=== PATIENT | female | born 1950 | race Caucasian/White ===

== ENCOUNTER 2021-01-30 03:25 | Outpatient (CLI) | payer MEDICARE, SELFPAY ==
[2021-01-30 10:27] LABS: Source Nasal/Nares
[2021-01-30 13:39] LABS: COVID-19 PCR Negative (Negative)
== END 2021-01-30 03:26 | disposition home or self-care (01) ==
LOC: LBO 03:25
PROVIDERS: PCP Family Medicine; Visit Provider Otolaryngology
DX: Z20.822 Contact with and (suspected) exposure to COVID-19 (principal); Z01.818 Encounter for other preprocedural examination
CPT/HCPCS: 87635

== ENCOUNTER 2021-04-07 11:33 | Outpatient (REF) | payer MEDICARE, SELFPAY | END 2021-04-07 11:34 | disposition home or self-care (01) | LOC: LBN 11:33 | PROVIDERS: PCP Family Medicine; Visit Provider Physician Assistant Medical | DX: N39.0 Urinary tract infection, site not specified (principal) | CPT/HCPCS: 87086 ==

== ENCOUNTER 2021-10-17 14:41 | Outpatient (REF) | payer MEDICARE, SELFPAY | END 2021-10-17 14:42 | disposition home or self-care (01) | LOC: LBN 14:41 | PROVIDERS: PCP Family Medicine; Visit Provider Nurse Practitioner Family | DX: N39.0 Urinary tract infection, site not specified (principal) | CPT/HCPCS: 87086 ==

== ENCOUNTER 2022-01-13 16:16 | Outpatient (REF) | payer MEDICARE, SELFPAY ==
[2022-01-18 09:25] LABS: Enterovirus PCR Positive (Negative); Specimen Source FOOT
== END 2022-01-13 16:17 | disposition home or self-care (01) ==
LOC: LBN 16:16
PROVIDERS: PCP Physician Assistant; Visit Provider Physician Assistant Medical
DX: R21 Rash and other nonspecific skin eruption (principal)
CPT/HCPCS: 87498

== ENCOUNTER → 2022-01-25 02:16 | Outpatient (CLI) | payer MEDICARE, SELFPAY ==
--- NOTE | 2022-01-25 08:15 | DI.CT_ITS ---
Exam(s) CT SINUS WO EXAM: CT SINUS WO CLINICAL HISTORY: chronic maxillarY pain,FACIAL PAIN, R51.9 TECHNIQUE: COMPARISON: No exams were available for comparison FINDINGS: Sinus CT was performed without contrast administration. Visualized brain orbits appear intact. Mast oid air cells are clear and temporal bone structures appear intact. The frontal, ethmoid, maxillary, and sphenoid sinuses are clear. No significant abnormality of the nasal cavity. Ostiomeatal comple xes appear intact bilaterally. IMPRESSION: Negative sinus CT. RADIATION DOSE DELIVERED: 104.78mGy.cm Total DLP !Error CTDIvol DATA REPOSITORY: All CT scans at this facility are submitted to the National Radiology Data Registry (NRDR) Dose Index Registry (DIR) with the [employer] (ACR). RADIATION OPTIMIZATION: All CT scans at this facility use at least one of these dose optimization te chniques: automated exposure control; mA and/or kV adjustment per patient size (includes targeted exa ms where dose is matched to clinical indication); or iterative reconstruction.
== END ==
PROVIDERS: PCP Physician Assistant; Visit Provider Otolaryngology
DX: R51.9 Headache, unspecified (principal)
CPT/HCPCS: 70486

== ENCOUNTER 2022-02-21 15:36 | Outpatient (REF) | payer MEDICARE, SELFPAY ==
[2022-02-23 12:14] LABS: COVID-19 RT-PCR UVMMC Result Negative (Negative)
== END 2022-02-21 15:37 | disposition home or self-care (01) ==
LOC: LBN 15:36
PROVIDERS: PCP Physician Assistant; Visit Provider Physician Assistant Medical
DX: Z20.822 Contact with and (suspected) exposure to COVID-19 (principal); J02.9 Acute pharyngitis, unspecified
CPT/HCPCS: U0003; 87070

== ENCOUNTER → 2022-03-06 12:49 | Outpatient (BNVA) | payer MEDICARE, SELFPAY | PROVIDERS: PCP Physician Assistant; Referring Provider Otolaryngology; Visit Provider Psychiatry & Neurology Neurology | DX: R51.9 Headache, unspecified (principal) | CPT/HCPCS: 99203 ==

== ENCOUNTER 2022-06-27 11:35 | Outpatient (REF) | payer OTHER, SELFPAY ==
[2022-06-27 15:40] LABS: RBC 0-2 HPF (0-2)
[2022-06-27 15:41] LABS: Bacteria Few HPF (Negative); C & S Indicated? C&S Done As Ordered; Casts Negative LPF (Negative); Crystals Negative HPF (Negative); Epithelial Cells Few HPF (Negative); Mucus Negative (Negative)
== END 2022-06-27 11:36 | disposition home or self-care (01) ==
LOC: LBN 11:35
PROVIDERS: PCP Physician Assistant; Visit Provider Physician Assistant Medical
DX: R30.0 Dysuria (principal)
CPT/HCPCS: 81015; 87086

== ENCOUNTER 2022-08-28 11:42 | Outpatient (CLI) | payer OTHER, SELFPAY ==
--- NOTE | 2022-08-28 11:30 | RT.EKG_ITS ---
APPROVED REPORT Exam: Resting ECG Reason for Exam: chest discomfort Patient Location: O HR:67 bpm ECG Measurements Heart Rate 67 AXIS CA 178 P 43 QRSd 95 QRS 2 QT 410 T 28 QTc 433 Conclusion Sinus rhythm...normal P axis, V-rate 50- 99 Probable left atrial enlargement...P >50mS, <-0.10mV V1 Otherwise normal ECG
== END 2022-08-28 11:43 | disposition home or self-care (01) ==
LOC: DI.CM 11:42
PROVIDERS: PCP Physician Assistant; Visit Provider Nurse Practitioner Family
DX: R07.89 Other chest pain (principal)
CPT/HCPCS: 93010

== ENCOUNTER 2022-08-28 21:26 | Outpatient (REF) | payer OTHER, SELFPAY ==
[2022-08-28 20:30] LABS: Abs Immature Grans 0.01 10^3/uL (0.0-0.06); Absolute Basophil Count 0.04 10^3/uL (0.0-0.2); Absolute Eosinophil Count 0.09 10^3/uL (0.0-0.7); Absolute Lymphocyte Count 1.61 10^3/uL (1.2-3.4); Absolute Monocyte Count 0.32 10^3/uL (0.1-0.8); Absolute Neutrophil Count 3.05 10^3/uL (1.2-6.7); Basophils % 0.8; Eosinophils % 1.8; HCT 43.4 % (36.0-46.0); HGB 14.5 g/dL (11.2-15.7); Immature Grans % 0.2; Lymphocytes % 31.4; MCHC 33.4 % (32.0-36.0); MCV 84 fL (80-95); MPV 11.8 fL (8.0-11.0); Monocytes % 6.3; Neutrophils % 59.5; Platelet Count 237 10^3/uL (130-400); RBC 5.17 10^6/uL (3.93-5.22); RDW 12.3 % (11.7-14.6); RDW-SD 37.3 fL; WBC 5.12 10^3/uL (4.4-10.8)
[2022-08-28 21:10] LABS: ALT 63 U/L (14-59); AST 37 U/L (15-37); Albumin 3.9 g/dL (3.4-5.0); Alkaline Phosphatase 145 U/L (46-116); Anion Gap 7.6 mmol/L (3-11); BUN 16 mg/dL (7-18); Bilirubin, Total 0.4 mg/dL (0.2-1.0); CO2 31.4 mmol/L (21.0-32.0); CREATININE 0.8 mg/dL (0.55-1.02); Calcium 9.2 mg/dL (8.5-10.1); Chloride 104 mmol/L (98-107); Estimated GFR 79.71 (mL/min/1.73m2); Glucose 97 mg/dL (74-106); Sodium 143 mmol/L (136-145); TSH 2.76 uIU/mL (0.36-3.74); Total Protein 7.8 g/dL (6.4-8.2)
[2022-08-30 09:45] LABS: Lyme Ab w Rflx to Lyme Confirm Negative (Negative)
[2022-09-01 15:57] LABS: Anaplasma phagocytophilum Negative (Negative); B. miyamotoi PCR Negative (Negative); Babesia divergens/MO-1 Negative (Negative); Babesia duncani Negative (Negative); Babesia microti Negative (Negative); Ehrlichia chaffeensis Negative (Negative); Ehrlichia ewingii/canis Negative (Negative); Ehrlichia muris eauclairensis Negative (Negative)
== END 2022-08-28 21:27 | disposition home or self-care (01) ==
LOC: LBN 21:26
PROVIDERS: PCP Physician Assistant; Visit Provider Nurse Practitioner Family
DX: R53.83 Other fatigue (principal); W57.XXXD Bitten or stung by nonvenomous insect and other nonvenomous arthropods, subsequent encounter; T14.8XXD Other injury of unspecified body region, subsequent encounter; R07.89 Other chest pain
CPT/HCPCS: 80053; 87798; 84443; 85025; 86618

== ENCOUNTER 2022-08-30 01:59 | Outpatient (CLI) | payer OTHER, SELFPAY ==
--- NOTE | 2022-08-30 | DI.MAMMO_ITS ---
Exam(s) MAMMO SCREENING EXAM: MAMMO SCREENING CLINICAL HISTORY: SCREENING FOR BREAST CANCER Z12.39 TECHNIQUE: Bilateral full field digital CC and MLO mammographic images were obtained with 3D tomosyn thesis and utilizing computer aided detection (CAD). COMPARISON: Available for comparison. FINDINGS: Masses/Architectural Distortion: None seen. There is a biopsy clip again seen in the right breast. Microcalcifications: No suspicious pleomorphic-type are seen. Skin Thickening/Nipple Retraction: None. IMPRESSION: 1. No significant interval change with no specific features of malignancy noted. 2. Unless there is more urgent need, screening mammography is recommended, as per [employer] guidelines. BI-RADS Category 1 - Negative Breast Density - Category C - Heterogeneously dense Breast density category C or D implies that the patient has dense breast tissue. Dense breast tissue is very common and is not abnormal but dense breast tissue can make it harder to find cancer on a ma mmogram. Also, dense breast tissue may increase their breast cancer risk. This information about the result of the mammogram report was provided to the patient to raise their awareness. Use this report when you speak with the patient about their risks for breast cancer, which includes their family hist ory. At that time, you may recommend for more screening tests (Ultrasound or MRI) as they might be us eful based on their risk. A negative radiographic report should not delay biopsy if a dominant or clinically suspicious mass is present. Up to ten percent of cancers are not identified on mammography. A negative report may reinforce clinical impression. Adenosis and dense breasts may obscure an underlying neoplasm. False positive reports average 6 to 10%. Patient will receive a letter notifying them of these results.
--- NOTE | 2022-08-30 | DI.DEXA_ITS ---
Exam(s) XR DEXA BONE DENSITY W/WO BRENDAN EXAM: XR DEXA BONE DENSITY W/WO BRENDAN CLINICAL HISTORY: OSTEOPOROSIS M81.0 TECHNIQUE: COMPARISON: No exams were available for comparison FINDINGS: Lateral Spine Image: Unremarkable. No compression deformities identified. Left hip: Total T-Score: -2.2 Total Z-Score: -0.7 T- and Z-scores: Findings are consistent with osteopenia. There is osteoporosis in the femoral neck with a T-score of -2.8. Lumbar Spine: Total T-Score: -3.0 Total Z-Score: -0.9 T- and Z-scores: Findings are consistent with osteoporosis. IMPRESSION: Osteoporosis in the lumbar spine and femoral neck.
== END 2022-08-30 02:19 ==
LOC: DI 02:02
PROVIDERS: PCP Physician Assistant; Visit Provider Physician Assistant
DX: Z13.820 Encounter for screening for osteoporosis (principal); Z12.31 Encounter for screening mammogram for malignant neoplasm of breast; M81.0 Age-related osteoporosis without current pathological fracture
CPT/HCPCS: 77063; 77067; 77080

== ENCOUNTER 2022-10-05 15:08 | Outpatient (REF) | payer MEDICARE, SELFPAY ==
[2022-10-05 14:43] LABS: Abs Immature Grans 0.02 10^3/uL (0.0-0.06); Absolute Basophil Count 0.03 10^3/uL (0.0-0.2); Absolute Eosinophil Count 0.06 10^3/uL (0.0-0.7); Absolute Lymphocyte Count 1.44 10^3/uL (1.2-3.4); Absolute Monocyte Count 0.44 10^3/uL (0.1-0.8); Absolute Neutrophil Count 3.33 10^3/uL (1.2-6.7); Basophils % 0.6; Eosinophils % 1.1; HCT 42.2 % (36.0-46.0); HGB 14.2 g/dL (11.2-15.7); Immature Grans % 0.4; Lymphocytes % 27.1; MCH 28.1 pg (27.0-33.0); MCHC 33.6 % (32.0-36.0); MCV 84 fL (80-95); MPV 11.7 fL (8.0-11.0); Monocytes % 8.3; Neutrophils % 62.5; Platelet Count 226 10^3/uL (130-400); RBC 5.05 10^6/uL (3.93-5.22); RDW 12.5 % (11.7-14.6); RDW-SD 37.9 fL; WBC 5.32 10^3/uL (4.4-10.8)
[2022-10-05 15:18] LABS: ALT 48 U/L (14-59); AST 29 U/L (15-37); Albumin 3.9 g/dL (3.4-5.0); Alkaline Phosphatase 132 U/L (46-116); Anion Gap 10.9 mmol/L (3-11); BUN 14 mg/dL (7-18); Bilirubin, Total 0.4 mg/dL (0.2-1.0); CO2 27.1 mmol/L (21.0-32.0); CREATININE 0.8 mg/dL (0.55-1.02); Calcium 8.9 mg/dL (8.5-10.1); Chloride 106 mmol/L (98-107); Estimated GFR 79.22 (mL/min/1.73m2); Glucose 106 mg/dL (74-106); Lipase 49 U/L (16-77); Potassium 4.1 mmol/L (3.5-5.1); Sodium 144 mmol/L (136-145); Total Protein 7.7 g/dL (6.4-8.2)
== END 2022-10-05 15:09 | disposition home or self-care (01) ==
LOC: LBN 15:08
PROVIDERS: PCP Physician Assistant; Visit Provider Physician Assistant Medical
DX: R10.11 Right upper quadrant pain (principal)
CPT/HCPCS: 80053; 83690; 85025

== ENCOUNTER 2022-10-08 03:28 | Outpatient (CLI) | payer MEDICARE, SELFPAY ==
--- NOTE | 2022-10-08 | DI.US_ITS ---
Exam(s) US ABDOMEN LIMITED EXAM: US ABDOMEN LIMITED CLINICAL HISTORY: GB POLYPS,K82.4,RUQ ABD PAIN, R10.11,H/O GALLSTONES TECHNIQUE: Ultrasound abdomen performed using standard protocol. COMPARISON: No exams were available for comparison FINDINGS: LIVER: Normal size and echogenicity. No focal liver lesions are seen.. GALLBLADDER: Multiple gallbladder polyps are noted measuring between 4 and 8 millimeters in diameter. No suspicious lesions. No follow-up recommended. No evidence of cholelithiasis. No evidence of wa ll thickening. No pericholecystic fluid identified. DA SILVA'S SIGN: Negative. BILIARY SYSTEM: No intrahepatic or extrahepatic biliary ductal dilation. Right KIDNEY: No evidence of renal calculi. No evidence of hydronephrosis. No renal mass or cyst iden tified. PANCREAS: Normal where visualized. ABDOMINAL AORTA AND IVC: Visualized portions normal caliber. ASCITES: None seen. IMPRESSION: Several small gallbladder polyps noted. No suspicious masses. No follow-up recommended DATA REPOSITORY:
== END 2022-10-08 03:48 ==
LOC: DI 03:28
PROVIDERS: PCP Physician Assistant; Visit Provider Physician Assistant Medical
DX: K82.4 Cholesterolosis of gallbladder (principal); R10.11 Right upper quadrant pain
CPT/HCPCS: 76705

== ENCOUNTER 2022-10-12 15:38 | Outpatient (REF) | payer MEDICARE, SELFPAY ==
[2022-10-12 16:28] LABS: ALT 42 U/L (14-59); AST 27 U/L (15-37); Albumin 4.1 g/dL (3.4-5.0); Alkaline Phosphatase 139 U/L (46-116); Bilirubin, Direct 0.1 mg/dL (0.0-0.2); Bilirubin, Total 0.3 mg/dL (0.2-1.0); Total Protein 7.4 g/dL (6.4-8.2)
[2022-10-12 18:22] LABS: GGT 129 U/L (5-55)
[2022-10-13 22:13] LABS: Rheumatoid Factor <8.6 IU/mL (<12.0)
[2022-10-15 14:42] LABS: ANA Interpretation Negative (Negative)
== END 2022-10-12 15:39 | disposition home or self-care (01) ==
LOC: NCHCN 15:38
PROVIDERS: PCP Physician Assistant; Visit Provider Physician Assistant
DX: R10.11 Right upper quadrant pain (principal)
CPT/HCPCS: 80076; 82977; 86038; 86431

== ENCOUNTER 2022-11-05 12:08 | Outpatient (REF) | payer MEDICARE, SELFPAY ==
[2022-11-05 16:05] LABS: Bacteria Negative HPF (Negative); Epithelial Cells Negative HPF (Negative); RBC 0-2 HPF (0-2); WBC Negative HPF (0-5)
[2022-11-05 16:06] LABS: C & S Indicated? C&S Done As Ordered; Crystals Negative HPF (Negative); Mucus Negative (Negative)
== END 2022-11-05 12:09 | disposition home or self-care (01) ==
LOC: LBN 12:08
PROVIDERS: PCP Physician Assistant; Visit Provider Nurse Practitioner Family
DX: N30.01 Acute cystitis with hematuria (principal)
CPT/HCPCS: 81015; 87086

== ENCOUNTER 2022-11-12 13:54 | Outpatient (REF) | payer MEDICARE, SELFPAY ==
[2022-11-12 16:24] LABS: Bacteria Negative HPF (Negative); C & S Indicated? C&S Done As Ordered; Casts Negative LPF (Negative); Crystals Negative HPF (Negative); Epithelial Cells Rare HPF (Negative); Mucus Negative (Negative); RBC 0-2 HPF (0-2); WBC Negative HPF (0-5)
== END 2022-11-12 13:55 | disposition home or self-care (01) ==
LOC: LBN 13:54
PROVIDERS: PCP Physician Assistant; Visit Provider Nurse Practitioner Family
DX: N30.01 Acute cystitis with hematuria (principal)
CPT/HCPCS: 81015; 87086

== ENCOUNTER 2022-11-20 12:59 | Outpatient (REF) | payer MEDICARE, SELFPAY ==
[2022-11-20 15:43] LABS: Bilirubin Negative (Negative); Blood Negative (Negative); Clarity Clear (Clear); Glucose Negative (Negative); Ketones Negative (Negative); Leukocyte Esterase Negative (Negative); Nitrite Negative (Negative); Specific Gravity 1.015 (1.005-1.025); Urobilinogen 0.2 mg/dL (Up to 0.2)
== END 2022-11-20 13:00 | disposition home or self-care (01) ==
LOC: LBN 12:59
PROVIDERS: PCP Physician Assistant; Visit Provider Nurse Practitioner Family
DX: R30.0 Dysuria (principal)
CPT/HCPCS: 81003

== ENCOUNTER 2022-11-30 12:07 | Outpatient (REF) | payer MEDICARE, SELFPAY ==
[2022-11-30 15:02] LABS: Bacteria Negative HPF (Negative); C & S Indicated? C&S Done As Ordered; Casts Negative LPF (Negative); Crystals Negative HPF (Negative); Epithelial Cells Rare HPF (Negative); Mucus Negative (Negative); Other Cells Rare Renal (Negative); RBC Negative HPF (0-2); WBC 0-2 HPF (0-5)
[2022-11-30 16:42] LABS: ALT 44 U/L (14-59); AST 29 U/L (15-37); Albumin 3.9 g/dL (3.4-5.0); Alkaline Phosphatase 115 U/L (46-116); Anion Gap 9.1 mmol/L (3-11); BUN 17 mg/dL (7-18); Bilirubin, Total 0.3 mg/dL (0.2-1.0); CO2 28.9 mmol/L (21.0-32.0); CREATININE 0.8 mg/dL (0.55-1.02); Chloride 104 mmol/L (98-107); Estimated GFR 79.22 (mL/min/1.73m2); Glucose 101 mg/dL (74-106); Potassium 3.8 mmol/L (3.5-5.1); Sodium 142 mmol/L (136-145); Total Protein 7.4 g/dL (6.4-8.2)
== END 2022-11-30 12:08 | disposition home or self-care (01) ==
LOC: LBN 12:07
PROVIDERS: PCP Physician Assistant; Visit Provider Physician Assistant Medical
DX: R30.0 Dysuria (principal); R39.89 Other symptoms and signs involving the genitourinary system; R10.9 Unspecified abdominal pain; N89.8 Other specified noninflammatory disorders of vagina
CPT/HCPCS: 80053; 81015; 87086; 87480; 87510; 87660

== ENCOUNTER → 2023-03-05 12:56 | Outpatient (BNVA) | payer MEDICARE, SELFPAY | PROVIDERS: PCP Physician Assistant; Referring Provider Physician Assistant; Visit Provider Nurse Practitioner Gerontology | DX: R30.0 Dysuria (principal); R35.0 Frequency of micturition | CPT/HCPCS: 51798; 81003; 99213 ==

== ENCOUNTER → 2023-05-09 08:51 | Outpatient (BNVA) | payer MEDICARE, SELFPAY | PROVIDERS: PCP Physician Assistant; Referring Provider Physician Assistant; Visit Provider Psychiatry & Neurology Neurology | DX: R51.9 Headache, unspecified (principal) | CPT/HCPCS: 99214 ==

== ENCOUNTER → 2023-05-21 02:32 | Outpatient (CLI) | payer MEDICARE, SELFPAY ==
[2023-05-21 08:29] LABS: CREATININE 0.8 mg/dL (0.55-1.02); Estimated GFR 79.22 (mL/min/1.73m2)
[2023-05-21] MEDS: Gadoterate meglumine 20 ML VIAL 12 ML IVP (08:45)
[2023-05-21] MEDS: Normal Saline Flush 10 ML SYR IVP (08:46)
--- NOTE | 2023-05-21 09:25 | DI.MRI_ITS ---
Exam(s) MR BRAIN WO/W EXAM: MR BRAIN WO/W CLINICAL HISTORY: bilateral facial pain,r51.9. TECHNIQUE: Multiplanar multisequence MRI of the brain was performed. CONTRAST MATERIAL: IV Contrast: 12 ML of Dotarem contrast administered. COMPARISON: CT CT SINUS WO from 01/25/2022 FINDINGS: VENTRICLES AND EXTRA AXIAL SPACES: Normal in size and morphology for the patient's age. HEMORRHAGE: None. CEREBRAL PARENCHYMA: No focus of restricted diffusion to suggest acute infarct. No space-occupying le hunter identified. A few scattered small scattered high signal foci are noted consistent with minimal microvascular changes. MIDLINE SHIFT: None. BRAINSTEM/CEREBELLUM: Normal. CALVARIUM: Normal. ENHANCEMENT: No suspicious enhancement identified. VISUALIZED PARANASAL SINUSES/MASTOIDS: Minimal mucosal thickening noted in the right maxillary sinus. Internal auditory canals appear normal. No abnormal enhancement along the visualized cranial nerves. Orbits: Unremarkable. Pituitary: Normal. Vasculature: Normal flow voids. IMPRESSION: Unremarkable MRI of the brain. DATA REPOSITORY:
== END ==
PROVIDERS: PCP Physician Assistant; Visit Provider Psychiatry & Neurology Neurology
DX: R51.9 Headache, unspecified (principal)
CPT/HCPCS: 70553; 82565

== ENCOUNTER → 2023-06-27 12:16 | Outpatient (BNVA) | payer MEDICARE, SELFPAY | PROVIDERS: PCP Physician Assistant; Referring Provider Physician Assistant; Visit Provider Psychiatry & Neurology Neurology | DX: R43.2 Parageusia (principal); R51.9 Headache, unspecified | CPT/HCPCS: 99214 ==

== ENCOUNTER → 2023-09-10 07:26 | Outpatient (BNVA) | payer MEDICARE, SELFPAY | PROVIDERS: PCP Physician Assistant; Referring Provider Physician Assistant; Visit Provider Surgery | DX: Z12.11 Encounter for screening for malignant neoplasm of colon (principal) ==

== ENCOUNTER → 2023-09-11 03:26 | Outpatient (CLI) | payer MEDICARE, SELFPAY ==
--- NOTE | 2023-09-11 | DI.MAMMO_ITS ---
Exam(s) MAMMO SCREENING EXAM: MAMMO SCREENING CLINICAL HISTORY: SCREENING Z12.31 TECHNIQUE: Mammograms were interpreted according to the usual protocol including computer analysis w [employer] CAD system, tomosynthesis and C-view imaging. COMPARISON: 2015 through 2022 FINDINGS: The breasts are composed of heterogeneously dense fibroglandular densities, Breast Density category C . No suspicious masses or suspicious microcalcifications are seen. No skin thickening or abnormal axillary lymph nodes are seen. Biopsy marker again noted in the poste rior right breast. There has been no significant change from prior exams. IMPRESSION: BI-RADS Category 1, Negative mammogram. Yearly screening mammography is recommended. Breast Density Category C, heterogeneously Dense. The mammogram demonstrates the patient's breast tissue is dense. Dense breast tissue is very common a nd is not abnormal but dense breast tissue can make it harder to find cancer on a mammogram. Also, de nse breast tissue may increase breast cancer risk. This information about the result of the mammogram report was provided to the patient to raise their awareness. Use this report when you speak with the patient about their risks for breast cancer, which includes their family history. At that time, you may recommend additional screening tests (Ultrasound or MRI) as they might be useful based on their r isk. A negative radiographic report should not delay biopsy if a dominant or clinically suspicious mass is present. Up to ten percent of cancers are not identified on mammography. A negative report may reinforce clinical impression. Adenosis and dense breasts may obscure an underlying neoplasm. False positive reports average 6 to 10%.
== END ==
PROVIDERS: PCP Physician Assistant; Visit Provider Physician Assistant
DX: Z12.31 Encounter for screening mammogram for malignant neoplasm of breast (principal)
CPT/HCPCS: 77063; 77067

== ENCOUNTER 2023-09-20 07:05 | Day surgery (SDC) | payer MEDICARE, SELFPAY ==
--- NOTE | 2023-09-19 20:55 | PDOC.DSDIS_ITS ---
Date of service: 09/20/23 Time of Service: 09:42 Discharge Plan Disposition Patient Disposition: Home Condition: Good Discharge Details Reason For Visit: screening colonoscopy Attending Provider: Severiano Atwood Primary Care Provider: Amaury Ely Home Meds and New Rx's Prescriptions: Continued cholecalciferol (vitamin D3) 50 mcg (2,000 unit) capsule 50 mcg PO DAILY calcium carbonate [Calcium 600] 600 mg calcium (1,500 mg) tablet 600 mg PO DAILY omega-3 fatty acids 1,000 mg capsule 1,000 mg PO DAILY ascorbic acid (vitamin C) 1,000 mg capsule 1 g PO Q6H vitamin B complex Capsule 1 cap PO DAILY Discontinued polyethylene glycol 3350 17 gram/dose powder 238 g PO ONCE Qty: 238 0RF Rx Instructions: take per colonoscopy instructions bisacodyl [Dulcolax (bisacodyl)] 5 mg tablet,delayed release (DR/EC) 5 mg PO ONCE Qty: 4 0RF Rx Instructions: take per colonoscopy instructions Discharge Instructions Instructions: Colon polyps, Diverticulosis, High-fiber diet Additional Instructions: Martha, we are able to complete your colonoscopy today without any difficulty. I did find and remove 2 polyps today. Both will be sent off for testing, and once we know the nature of these polyps, that we will determine the timing of your next colonoscopy. Incidentally, you also have some diverticulosis. Diverticula are little weak spots in the muscular part of the colon wall. They typically occur as we age. They can get infected or inflamed. When that happens, we caught diverticulitis, and it is usually experienced as fairly sharp pain, usually on the left side or lower part of the abdomen. It usually accompanied by fevers and not feeling well. Most of the time this is treated with antibiotics. The best way to take care of it stay well-hydrated, avoid constipation, and a plenty of fiber in your diet. Have attached some basic information here about: Rectal polyps, as well as diverticulosis. As mentioned above, we will have the results of the polyp analysis, the office will be in [facility]. If you need anything in the meantime, please do not hesitate to call or ask at any time. 1. If tolerated, consume a soft, low fiber diet for 1-2 days. [address] Do not drive, drink alcohol, operate machinery, make critical decisions, or do activities that require coordination or balance for 24 hours. 3. Because air was put into your colon during the procedure, expelling air from your rectum (passing gas or farting) is normal. 4. You may not have a bowel movement for 1-3 days because of the colonoscopy prep. This is normal. 5. Go directly to the emergency room if you notice any of the following: Develop chills (warm to touch), or if you have a thermometer and your temperature is above 101 Difficulty breathing or difficultly swallowing Persistent vomiting Severe abdominal pain, other than gas cramps Severe chest pain Black, tarry stools Any bleeding ? exceeding one tablespoon 6. Call your physician if the site where your intravenous was started becomes red, swollen, painful, and warm to touch. 7. Your physician has reviewed your pre-procedure medications. Please continue to take those medications as previously ordered. You will be given specific information/education regarding any changes to your medications before leaving. Stand Alone Forms: Anesthesia Discharge Inst., Wil Reddy (DSU) Activity:: Activity as Tolerated Diet:: As Tolerated Discharge Orders Discharge Orders: Discharge Order (Routine); Ordered 09/19/23 Ordered By: Severiano Atwood DS: Diagnosis Discharge Diagnosis (1) Encounter for screening colonoscopy: Status: Acute Asessment and Plan: Follow-up on polypectomy results
--- NOTE | 2023-09-19 20:57 | W.COLOREPORT ---
Date of service: 09/20/23 Time of Service: 09:44 Colonoscopy Report Date of procedure: 09/20/23 Pre-op diagnosis general: screening colonoscopy Post-op diagnosis procedure note: other (Diverticulosis, colon polyps) Procedure: colonoscopy with polypectomy Surgeon: Severiano Atwood Anesthesia Type: General:No Airway Estimated blood loss (mL): 5 Pathology: other (0.5 cm flat polyp at 35 cm, 0.25 cm polyp also at 35 cm) Complications: None Disposition: same day Indications: Martha is a 72 year old woman who needs her next screening colonoscopy Prep: Miralax/Dulcolax Procedure Start Time: 09:14 Procedure End Time: 09:32 Retraction Time: 9 Findings: Mostly sigmoid diverticulosis, 0.5 cm flat polyp at 35 cm, 0.25 cm polyp also at 35 cm Procedure Description: After the induction of monitored anesthetic care, and with the patient in left lateral decubitus position, I began by performing an external anorectal exam.? Perineum and skin were normal, as was the anal verge.? There are some mild external hemorrhoids.? Next, I performed a digital rectal exam.? I did not appreciate any abnormal findings.? Next, I advanced a colonoscope into the rectal vault.? I performed retroflexion.? This appeared normal.? Using insufflation, I then advanced the colonoscope beyond the rectal folds and into the sigmoid colon before advancing towards the cecum.? There was some sigmoid diverticulosis. There were some occasional diverticula in other segments. the scope was noted to be in the cecum by identification of the ileocecal valve and appendiceal orifice.? I then began withdrawing the colonoscope using repeated irrigation as necessary for full evaluation of the colonic mucosa. Around 35 cm from the anus was a 0.5 cm flat polyp. This was removed with cold forceps without any issue. Just centimeter to away was another polyp. This was also mostly flat. It was about 0.25 cm in its largest dimension. This was also removed with cold forceps. Polypectomy sites looked healthy, with no worrisome bleeding. Once the scope was withdrawn to the level of the rectum, great care was taken to examine portions of the rectal folds.? Finally, the scope was withdrawn and the patient was brought to the same-day surgery recovery unit as the anesthetic wore off. ?The findings and instructions were shared with the patient prior to discharge. [place] Bowel Prep [place] Bowel Prep Right Colon: 3 Left Colon: 3 Transverse Colon: 3 Total Score: 9
[2023-09-20 07:56] VITALS: BP 146/97; PULSE 66; RESP 16; TEMP 36.7; O2SAT 100
[2023-09-20] MEDS: Lactated Ringers 1,000 ML 80 ML IV (07:59)
--- NOTE | 2023-09-20 08:00 | W.ANESPRE ---
General Info Date of Service Date Performed: 09/20/23 Height: 5 ft 2 in Weight: 64 kg Body Mass Index (BMI): 25.8 Surgical Procedure: Operation Date: 09/20/23 09:20 Proposed Procedure Side Surgeon lori Atwood MD Meds Allergies and Home Medications Allergies Allergy/AdvReac Type Severity Reaction Status Date / Time alendronate sodium Allergy Unknown Other (See Verified 09/20/23 07:55 [From Fosamax] Comment) ciprofloxacin [From Cipro] Allergy Unknown Other (See Verified 09/20/23 07:55 Comment) levothyroxine sodium Allergy Unknown Other (See Verified 09/20/23 07:55 [From Synthroid] Comment) Penicillins Allergy Unknown Other (See Verified 09/20/23 07:55 Comment) Sulfa (Sulfonamide Allergy Unknown Other (See Verified 09/20/23 07:55 Antibiotics) Comment) azithromycin AdvReac Unknown Other (See Verified 09/20/23 07:55 Comment) Home Medication Medication Instructions Recorded ascorbic acid (vitamin C) 1,000 mg 1 g PO Q6H 12/07/21 capsule calcium carbonate (Calcium 600) 600 mg PO DAILY 12/07/21 cholecalciferol (vitamin D3) 50 50 mcg PO DAILY 12/07/21 mcg (2,000 unit) capsule omega-3 fatty acids 1,000 mg 1,000 mg PO DAILY 12/07/21 capsule vitamin B complex 1 cap PO DAILY 12/07/21 Current Visit Medications: Current Medications Generic Name Dose Route Start Last Admin Trade Name Freq PRN Reason Stop Dose Admin Hyoscyamine Sulfate 0.125 mg 09/19/23 20:58 Hyoscyamine 0.125 Mg Sl/Oral/Chew SL 10/19/23 20:57 DIRECTED PRN Ringer's Solution 1,000 mls @ 80 mls/hr 09/20/23 06:00 09/20/23 07:59 IV 09/20/23 23:59 80 mls/hr INFUSION ENRIKE Administration IV Miscellaneous Supplies 1 each 09/20/23 06:00 Iv Access IV 09/20/23 23:59 DIRECTED ENRIKE Ondansetron HCl 4 mg 09/19/23 20:58 Ondansetron 4 Mg/2 Ml Vial IVP 10/19/23 20:57 Q4H PRN PRN Nausea / Vomiting Sodium Chloride 0 ml 09/20/23 06:00 Normal Saline Flush 10 Ml Syr IV 09/20/23 23:59 PRN PRN Sodium Chloride 0 ml 09/20/23 06:00 Normal Saline 10 Ml Vial IJ 09/20/23 23:59 DIRECTED PRN Sterile Water 0 ml 09/20/23 06:00 Water,Injection,Sterile 10 Ml Vial IJ 09/20/23 23:59 DIRECTED PRN PFSH Active Problems Active Problems: Problem Status Onset Code Encounter for screening colonoscopy Z12.11 Dysgeusia R43.2 Facial lesion L98.9 Seborrheic keratosis L82.1 Acute cystitis with hematuria N30.01 Dysuria R30.0 Deviated nasal septum J34.2 Facial pain R51.9 Medical History Medical History Right upper quadrant abdominal pain of unknown etiology Senile osteoporosis Senile hyperkeratosis Urethral polyp Migraine headache Allergic rhinitis due to pollen Vitamin D deficiency Age related osteoporosis Tinnitus Gallbladder polyp Hoarseness Chronic sinusitis Surgical History Surgical History Hx of cervical polypectomy H/O partial thyroidectomy Hx of cataract surgery Tobacco Smoking/Tobacco Use Status: Former Tobacco Use Alcohol Alcohol Intake: current Alcohol intake frequency: holidays/special occasions only Substance Use Substance use: Never Substance use type: does not use Vital Signs and Lab Results Vital Signs Most Recent Vital Signs in EMR: Most Recent Vital Signs Temp Pulse Resp BP Pulse Ox 36.7 C 66 16 146/97 H 100 09/20/23 07:56 09/20/23 07:56 09/20/23 07:56 09/20/23 07:56 09/20/23 07:56 Lab Results Blood Type / Crossmatch: No Data to Display Complete Blood Count: No Data to Display Complete Metabolic Panel: No Data to Display Liver Function Panel: No Data to Display Coagulation Panel: No Data to Display Cardiac Panel: No Data to Display Arterial Blood Gas: No Data to Display Venous Blood Gas: No Data to Display Pancreas Panel: No Data to Display Thyroid Panel: No Data to Display Infectious Disease: No Data to Display Blood Cultures: No Data to Display Toxicology Panel: No Data to Display Imaging and Studies Imaging and Studies Study information below may be from another EMR and interpreted by another provider. Please see original notes in EMR for more complete details. EKG Summary: Conclusion Sinus rhythm...normal P axis, V-rate 50- 99 Probable left atrial enlargement...P >50mS, <-0.10mV V1 Otherwise normal ECG 08/28/22 Anesthesia Assessment and Plan Anesthesia History Personal History: No History of Anesthesia Complications Family History: No Family History of Anesthesia Complications Exercise Tolerance Exercise Tolerance: Metabolic Equivalents>4 Pertinent Negatives Pertinent Negatives: No Symptoms of GERD, No Major Cardiovascular Symptoms or Complaints, No Major Pulmonary Symptoms or Complaints and No History of CVA/TIA Cardiac & Pulmonary Exam Cardiac Exam: Normal S1/S2 Heart Sounds Pulmonary Exam: Clear Bilateral Breath Sounds Implantable Cardiac Device Does patient have a Pacemaker or an ICD?: No Airway Exam Known Difficult Airway: No Mallampati Class: 3 Mouth Opening: Narrow (< 3cm) Thyromental Distance: Greater than 3 cm Neck Range of Motion: Full ROM Neck Circumference: Normal Teeth Condition: Normal Dentition ASA Classification ASA Score: ASA 2 Emergency Case?: No NPO Status NPO Status: NPO Clears >2 hours, Solids >8 hours Anesthesia Plan Resuscitation Status: Full Code Anesthesia Technique: General Anesthesia Airway Planned: Natural Airway Monitors Used: Standard Monitors Preoperative Comments:: Pt here for 10 yr colonoscopy, reports no family history of colon cancer, no changes in bowels.
[2023-09-20 08:01] VITALS: BP 134/80
[2023-09-20 08:05] VITALS: BMI 25.8
--- NOTE | 2023-09-20 09:28 | BOWEL_PTH ---
PATIENT: Martha Solares LOC: [facility] U#:[id number] AGE/SX: 72/F ROOM: RE09/20/[address]: Severiano Atwood MD : 1950 BED: DIS: 09/20/2023 SPEC #: [id number] RECD: 09/20/23 13:02 STATUS: CABRERA REQ #: [id number] DAGO: 09/20/23 09:[address]: Severiano Atwood DEPT: Surgical Specimen RECD BY: Dania Turner ENTERED: 09/20/23 13:03 SP TYPE: Bowel OTHR DR: Amaury Ely Tissues: 1 - BIOPSY BOWEL Procedures: GROSS AND MICRO LEVEL 4 Comments: [id number]
[2023-09-20 09:34] VITALS: BP 104/60; PULSE 69; RESP 16; TEMP 36.3; O2SAT 97
--- NOTE | 2023-09-20 09:52 | W.ANESPOSTOP ---
Postoperative Evaluation Date, Time and Location Date Performed: 09/20/23 Time Performed: 09:52 Patient Location: Day Surgery Unit Vital Signs Most Recent Imported Vital Signs: Most Recent Vital Signs Temp Pulse Resp BP Pulse Ox 36.3 C L 69 16 104/60 97 09/20/23 09:34 09/20/23 09:34 09/20/23 09:34 09/20/23 09:34 09/20/23 09:34 Pain Score Most Recent Pain Score: Most Recent Pain Score Pain Level 0 09/20/23 09:34 Assessment Mental Status: Awake (Alert & Oriented to Patient Baseline) Airway and Respiratory Function: Patent airway with normal (patient baseline) respiratory exam Cardiovascular Function: Hemodynamically Stable Hydration Status: Adequately Hydrated Nausea & Vomiting: No Nausea or Vomiting Pain: Pt. Denies Any Pain Peripheral Nerve Block: Patient did not receive a nerve block
[2023-09-20 09:57] VITALS: BP 151/83; PULSE 62; RESP 16; TEMP 36.1; O2SAT 199
== END 2023-09-20 10:30 | disposition home or self-care (01) ==
LOC: SUR 07:05
PROVIDERS: PCP Physician Assistant; Visit Provider Surgery
PROC: 0DJD8ZZ Inspection of Lower Intestinal Tract, Via Natural or Artificial Opening Endoscopic (ICD-10-PCS; CPT 45378; principal; 2023-09-20 09:15)
DX: Z12.11 Encounter for screening for malignant neoplasm of colon (principal); K57.30 Diverticulosis of large intestine without perforation or abscess without bleeding; D12.5 Benign neoplasm of sigmoid colon; K64.8 Other hemorrhoids
CPT/HCPCS: 45380; 88305; J2001; J2704

== ENCOUNTER → 2024-01-02 13:02 | Outpatient (BNVA) | payer MEDICARE, SELFPAY | PROVIDERS: PCP Physician Assistant; Visit Provider Psychiatry & Neurology Neurology | DX: R51.9 Headache, unspecified (principal) | CPT/HCPCS: 99214 ==

== ENCOUNTER 2024-01-31 18:01 | Outpatient (REF) | payer MEDICARE, SELFPAY ==
[2024-01-31 14:39] LABS: Source Nasal/Nares
[2024-01-31 15:30] LABS: COVID-19 PCR Negative (Negative)
[2024-01-31 16:06] LABS: Bacteria Negative HPF (Negative); C & S Indicated? C&S Done As Ordered; Crystals Negative HPF (Negative); Epithelial Cells Rare HPF (Negative); Mucus Heavy (Negative); Other Cells Rare Transitional (Negative)
--- OUTSIDE RECORDS SUMMARY | 2024-01-31 18:02 | XMS_ITS | Clinical Summary ---
[facility] [place] [address] Care Team Providers Care Marketing Traffic Manager Name Role Phone Amaury Ely Primary Care Provider Social History Tobacco Use Types Packs/Day Years Used Date Smoking Tobacco: Never Assessed Sex and Gender Information Value Date Recorded Sex Assigned at Not on file Gender Identity Not on file Sexual Orientation Not on file Plan of Treatment Health Maintenance Due Date Last Done Comments CT Colonography 1950 Colonoscopy 1950 Colorectal Cancer Screening 1950 FIT DNA 1950 FIT 1950 Sigmoidoscopy (10 year) with FIT yearly 1950 Sigmoidoscopy 1950 Hepatitis C Screening 1970 Tetanus/Diphtheria/Pertussis Vaccines (1 - Tdap) 10/03 Breast Cancer Share Decision Needed 1992 Breast Cancer screening 1992 Zoster vaccine (1 of 2) 2002 Advance Directive 10/04/2007 Bone Density Scan 2017 Pneumoccocal Vaccine: 65+ (1 of 1 - PCV) 2017 Covid-19 Vaccine ( - 2023-25 season) 2023 Influenza (Flu) vaccine (1 o f 1 - Influenza standard series) 11/24/2023 Care Teams Marketing Traffic Manager Relationship Specialty Start Date End Date Amaury Ely PA [address] [place] [address] PCP - General Internal Medicine 10/26/22
--- OUTSIDE RECORDS SUMMARY | 2024-01-31 18:02 | XMS_ITS | Encounter Summary ---
Author Organization [facility] [place] [address] Care Team Providers Care Senior Medical Technologist Name Role Phone Amaury Ely Primary Care Provider Encounter Details Date Type Department Care Team (Latest Contact Info) Description 11/13/2022 Travel Social History Tobacco Use Types Packs/Day Years Used Date Smoking Tobacco: Never Assessed Sex and Gender Information Value Date Recorded Sex Assigned at Not on file Gender Identity Not on file Sexual Orientation Not on file documented as of this encounter Plan of Treatment Not on file documented as of this encounter Visit Diagnoses Not on filedocumented in this encounter Care Teams Senior Medical Technologist Relationship Specialty Start Date End Date Amaury Ely PA [address] [place] [address] PCP - General Internal Medicine 10/26/22 documented as of this encounter
--- OUTSIDE RECORDS SUMMARY | 2024-01-31 18:03 | XMS_ITS | Encounter Summary ---
Author Organization [facility] Address [address] [place] [address] Care Team Providers Care Crop Nutrition Scientist Name Role Phone Ava Leonard MD Primary Care Provider [phone] Reason for Visit * Reason Onset Date Comments Coordination Of Care 04/10/2023 Encounter Details Date Type Department Care Team (Late st Contact Info) Description 04/10/2023 Telephone [facility] [address], [place] [id number] Urmila Gleason MD [address] [facility], [address] [place] [address] Coordination Of Care Social History Tobacco Use Types Packs/Day Years Used Date Smoking Tobacco: Former Cigarettes 1.5 2 0 03/25/1977 - 03/25/1979 Smokeless Tobacco: Never Alcohol Use Standard Drinks/Week Comments Not Asked 0 (1 standard drink = 0.6 oz pur e alcohol) Interpersonal Safety Answer Date Record ed Physically Hurt Never 10/25/2019 Verbally Threaten Not on file 10/25/2019 Sex and Gender Information Value Date Recorded Sex Assigned at Not on file Gender Identity Female 03/12/2019 11:22 EST Sexual Orientation Not on file documented as of this encounter Miscellaneous Notes * Telephone Encounter - Maria Dolores Munroe - 04/10/2023 1317 EST Patient called and asked that her recent notes be faxed to her new Neurologists office in [facility] - Dr. Mabel Mccarthy at [facility] Ph. [phone] F. [phone] documented in this encounter Plan of Treatment Not on file documented as of this encounter Visit Diagnoses Not on filedocumented in this encounter Care Teams Crop Nutrition Scientist Relationship Specialty Start Date End Date Ava Leonard MD [address] [place] [address] PCP - General 04/19/14 documented as of this encounter
--- OUTSIDE RECORDS SUMMARY | 2024-01-31 18:03 | XMS_ITS | Encounter Summary ---
Author Organization [facility] Address [address] [place] [address] Care Team Providers Care Processing Associate Name Role Phone Ava Leonard MD Primary Care Provider [phone] Encounter Details Date Type Department Care Team (Late st Contact Info) Description 03/08/2020 Lab Requisition [facility] Pathology & Laboratory Medicine - [facility] [address] [place] [address] Ava Leonard MD [address] [place] [address] [address] [place] [address] Vitamin D deficiency, unspecified Social History Tobacco Use Types Packs/Day Years [...] on file documented as of this encounter Procedures Procedure Name Priority Date/Time Associated Diagnosis Comments VITAMIN D (25,OH) Routine 03/08/2020 14: 47 EST Vitamin D deficiency, unspecified documented in this encounter Results * VITAMIN D (25,OH) (03/08/2020 14:47 EST) 25OH Vitamin D Tot 62.1 30.0 - 100.0 ng/mL 03/09/2020 10:21 EST [facility] Comment: Vitamin D 25,OH Interpretive Ranges: Deficiency: ??<10.0 ng/mL Insufficiency: ??10.0 - 30.0 ng/mL Sufficiency: ??30.0 - 100.0 ng/mL Toxicity: ??>100.0 ng/mL Blood VENOUS BLOOD / Unknown 03/08/2020 14:47 EST 03/08/2020 19:43 EST Ava Leonard MD CHEMISTRY & BLOOD GAS ORDERABLES [facility] [address] [place] [address] documented in this encounter Visit Diagnoses Diagnosis Vitamin D deficiency, unspecified documented in this encounter Care Teams Processing Associate Relationship Specialty Start Date End Date Ava Leonard MD [address] [place] [address] PCP - General 04/19/14 documented as of this encounter
--- OUTSIDE RECORDS SUMMARY | 2024-01-31 18:03 | XMS_ITS | Encounter Summary ---
Author Organization [facility] Address [address] [place] [address] Care Team Providers Care E Tailer Name Role Phone Ava Leonard MD Primary Care Provider [phone] Encounter Details Date Type Department Care Team (Late st Contact Info) Description 09/18/2021 Plan of Care Documentation [facility] Speech & Language [address] [place] [address] Social History Tobacco Use Types Packs/Day Years [...] on file documented as of this encounter Progress Notes * Sheryl Bose - 09/18/2021 1542 EDT Images from the original note were not included. Outpatient Rehab Plan of Care Assessment Speech Language Pathology Encounter and DISCHARGE Note *TELEPRACTICE VISIT* Name: Martha Solares Address: [address] [place] [id number] (home) Date of : 1950 Primary Physician: Ava Leonard Referring Physician: Kamron Prakash* REHAB THERAPIST Diagnosis: Dysphonia Medical Diagnosis: Muscle Tension Dysphonia Date of Onset: 10/14/20 Date of Referral: 10/14/20 Date of Service: 09/18/2021 Total Treatment Time: 1300, 30 minutes Name of Provider: Sheryl Bose M.S., CHIO-REHAB THERAPIST SUBJECTIVE: I really feel like I know what to do. OBJECTIVE: Martha was seen today after almost 3 mos to continue a course of REHAB THERAPIST intervention to address goals related to dysphonia. Patient has been seen 5 times by REHAB THERAPIST services since initial evaluation. Please refer to encounter notes for details. TELEHEALTH REHABILITATION THERAPY VIDEO VISIT Today's visit was provided through telehealth video conferencing. The location of the patient : Home The patient's physical address was verified prior to start of today's visit in case of emergency. The location of the provider: Office The following staff and their role did participate in today's encounter visit: Sheryl Bose M.S., CCC-REHAB THERAPIST The concept of ???telehealth has been described to the patient.? Patient has been informed of the anticipated benefits and possible risks.? Patient understands the information provided regarding telehealth, has had the opportunity to ask questions about this information, and all questions have been answered to patient???s satisfaction. Patient consents for the use of telehealth in his/her medical care and authorizes the transmission of any relevant medical information to providers and their staff involved in patient???s medical or mental health care. Progress on goals is as follows: Short-term Goals: Formal - Re-eval: Acoustic Measures: Acoustic measurements were obtained using the [employer] Multi Dimensional Voice Program, with patient [address] [facility]. All normative data is based on the patient's age and gender. Results follow: Results Norm Hoarseness: Hoarseness is a perceptual correlate to perturbation. Increased perturbation measures may be indicative of irregular or asymmetric adduction (closing) of the vocal folds. Jitter/Relative average perturbation (RAP): 0.21% Greater than 0.8% is considered abnormal Shimmer (Jomar) 2.4% Less than or equal to 3.81% is considered normal Voice Breaks: Voice breaks are a perceptual correlate to zjhtp-xn-stkepkwu ratio. Veejo-bw-fyulzrgy ratio (NtR) 0.12 Less than or equal to 0.19 is considered normal Breathiness: Breathiness is a perceptual correlate to voice turbulence index (VTI). Voice turbulence index (VTI) 0.05 Less than or equal to 0.06 is considered normal Multi-Dimensional Voice Program (MDVP): Image indicates norms for RAP, Jomar, NtH, & VTI in the green curyung. Patient???s measures are indicated in the red mazin overlay. See image below: Norms Sources: Barrington & Eufemia; Clinical Measurement of Speech & Voice (2000). Lincolnwang Silvana & Lan. (1997) Journal of Voice, 11(2) 178-186. Goal #1: Patient will master upper body and laryngeal relaxation techniques and will independently maintain relaxed postures during connected speech and singing tasks with 90% accuracy without cues. 05/31: Provided instruction on laryngeal relaxation exercises and provided recommendations for daily completion. Martha was able to return demonstration with 100% accuracy with min cues. She benefited from cues to increase awareness of when her upper body tension increased during spontaneous conversation. She demonstrated emerging increase in her awareness of this. 06/07: Patient reported that she independently completed upper body and laryngeal relaxation techniques at home between sessions. She reported that she has noticed crackling sounds with neck rolls and that doing lip trills has become easier. Today, continued instruction on completion of laryngeal relaxation exercises and patient required moderate cues to reduce tension in her face and upper bodyfor successful completion of lip trills. She also frequently demonstrated upper body tension duringconnected speech and singing tasks, and required verbal, visual, and tactile cueing to relax her shoulders. Overall today, patient was able to maintain relaxed postures during connected speech and singing tasks with 60% accuracy. 06/14: Patient reported that she has been having something between an ache and a pain in her lowerback and abdomen, and that it limits her mobility. She reported that the pain does not affect her breathing. After confirming that patient was able to participate in the upper body and laryngeal exercises, the clinician provided ongoing instruction in upper body exercises. Patient initially required maximum verbal and visual cues to reduce tension in her face and upper body for successful completion of lip trills. However, after continued instruction in diaphragmatic breathing, patient was ableto return demonstration with 100% accuracy and subsequently complete lip trills while maintaining re laxed postures with 80% accuracy. Patient was also able to maintain relaxed postures during connected speech tasks with 90% accuracy today. 06/23: Martha reports she continues to complete recommended laryngeal relaxation exercises daily. She reports increased range and decreased discomfort and clicking with neck stretches. Martha reported she has been practicing lip trills at home, and that they are ???coming more naturally,?? as she has been focusing on maintaining her breath and relaxing her face. Martha maintained relaxed postures during connected speech tasks with 90% accuracy today without cues. 06/26: Martha demonstrates laryngeal relaxation exercises with 100% accuracy. Martha maintained relaxed postures during connected speech tasks with 100% accuracy today without cues. 09/18: Martha maintained relaxed postures during connected speech and singing tasks with 100% accuracytoday without cues. Goal #2: Patient will utilize forward resonance for increased vocal clarity during structured connected speech and singing tasks with 90% accuracy. 05/31: Began training on forward focus of resonance with instruction on semi- occluded vocal tract exercise - straw blowing with and without voice. Martha was able to demonstrate improvement in consistency of breath flow for maintenance of bubbles both with and without voice. With voice, she was able todo this with ~65% accuracy. 06/07: Patient reported that she has been independently completing the semi- occluded vocal tract exercise at home between sessions. She demonstrated this exercise with 100% accuracy during today's session both with and without voice. She reported that she has also been independently completing resonance exercises at home between sessions, and this has increased her awareness of how she has been using her voice spontaneously. She has become aware when muscle tension results in a laryngeal focusedvocal quality. During unstructured, spontaneous conversation, patient demonstrated good forward resonance resulting in an improved vocal quality. However, with more structured tasks, she required cues to maintain relaxed upper body and to move her voice forward so as to consistently sense the vibration in the mask of her face. She achieved 60% accuracy. Patient reported that she was tensing her upper body during the structured tasks due to a concerted effort to avoid use of vocal solis. Patient al so demonstrated shallow breathing during these tasks and was therefore provided instruction in diaphragmatic breathing. Patient returned demonstration of diaphragmatic breathing with 70% accuracy. 06/14: Patient demonstrated increased awareness of the connection between muscle tension and a laryngeal focused vocal quality after she was provided with ongoing instruction in diaphragmatic breathing. With min-moderate verbal, gestural, and visual cueing, patient was able to identify moments in uns tructured, spontaneous conversation when she exhibited vocal solis, and was able to self-correct for more use of forward resonance. She self-identified with ~75% accuracy. Overall, patient was able to use forward resonance for increased vocal clarity with 90% accuracy. The clinician recommended that patient place reminders around her workspace at home to use forward resonance and adequate breath. Patient was receptive to this idea, and plans to use this strategy at home for carryover practice. 06/23: Martha demonstrates ongoing increase in her awareness of the need to take frequent replenishing breaths during connected speech production. With minimal verbal cueing, Martha was able to identify moments in unstructured spontaneous conversation when she exhibited vocal solis or when she let her voice drop into a whisper to prevent vocal solis.?? She also independently recognized that she demonstrates vocal solis when she runs out of air while speaking.?? The clinician instructed her to??speak at a slower rate and intermittently pause to maintain her breath for speech.?? Martha demonstrated an understanding and??plans to use these strategies when saying prayers at Shabbat dinner and when recording a song with her granddaughter this week. 06/26: Provided instruction today on use of pacing, slow rate, replenishing diaphragmatic breaths forteaching, leading and singing. Martha demonstrates improved ability to increase frequency of replenishing breaths to support maintenance of clear forward resonance. Very few instances of vocal solis demon strated today and Martha is able to self-correct these with 100% accuracy. 09/18: In spontaneous connected speech as well as an episode of singing, Martha demonstrates excellentuse of forward focus of resonance for clear vocal quality. She reports ongoing high awareness of proprioception for vibration in the mask of her face and is able to implement this during singing and speaking confidently. Very few instances of vocal solis demonstrated today and Martha is able to identify and self-correct these with 100% accuracy. Goal #3: Patient will demonstrate improved vocal hygiene by use of strategies to avoid voice overuse in the presence of background noise. 05/31: Provided suggestions of use of a meditation aguilera to get the attention of her grandchildren rather than her voice/yelling. Martha liked this suggestion and will pursue. 06/07: Patient reported that she plans to use a old dinner aguilera to get the attention of her grandchildren instead of yelling. Patient demonstrated several instances of throat clearing during the session today. Provided instruction on suppression techniques of swallowing and taking a sip of water. Ptdemonstrated emerging awareness of throat clearing. 06/14: Patient reported that she has not had to use the old dinner aguilera she was loaned by a friend with her grandchildren, as she has been making an effort to keep things lower monte. Patient also reported that she feels like her voice has gotten worse in the past week due to allergies, and that she feels like she hasjunk in [her] throat. She reported that she had tried using a half dose of Claritin with little benefit. The clinician recommended patient try a different decongestant, and patient was open to that suggestion. Patient also demonstrated a decrease in throat clearing today, and often took sips of water to replace the need to clear her throat. 06/23: Martha reported that she tried both a half dose and full dose of Sasha for her allergies this past week, and that she discontinued it, as it made her feel ???wound up.? She reported that shestill feels like her ???throat is coated in junk,?? and that she has been having sinus issues due to the recent shifts in barometric pressure.?? She also reported that she has been using an herbal te a mixture for her sinus issues and continues to drink sips of water instead of clearing her throat.Martha demonstrated no instances of throat clearing during today's session. 06/26: Martha demonstrated no instances of throat clearing during today's session. 09/18: Martha continues to report frustrating sensation of mucus buildup in her pharynx. She has triedall yykv-kha-nrmapbk remedies as well as maintaining excellent hydration to no avail. She stopped short of a prescription level decongestant as she was not comfortable with the side effects. Despite this, she reports excellent success maintaining no throat clearing and demonstrates no episodes of throat clearing during session today. Martha reports that her grandchildren continue to compliment her on her use of a quieter voice when disciplining them. PATIENT/FAMILY EDUCATION: Topic: Patient education and training was completed today regarding vocal hygiene (e.g., avoidance of throat clearing). Education has been ongoing regarding the importance of upper body and laryngeal relaxation during voice use. In addition, education was provided regarding utilization of forward focus ofresonance and diaphragmatic breathing. Provided Martha with some suggestions for working on pitch andpitch clarity for singing. Learner: Patient Method of Education: Verbal and Demonstration Barriers to Learning/Education: None Patient: Was able to verbalize understanding of information and was able to return demonstration. Family: No family present. ASSESSMENT/CLINICAL IMPRESSIONS: Ms. Solares is an 70 y.o.female with moderate speaking demands who has been participating in a course of outpatient REHAB THERAPIST intervention to address dysphonia. 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 She is seen today to continue a course of intervention to address goals related to dysphonia. She has been seen for a total of 5 REHAB THERAPIST treatment sessions. Today, Martha continues to report high satisfaction with the improvement in her voice. She reports she is meeting all of her voice demands and maintaining excellent voice hygiene habits. She demonstrates excellent awareness of episodes of vocal solis and is able to self-correct with 100% accuracy. She demonstrated speaking and singing with excellent use of forward focus of resonance today. She has questions today about improving her ability to match and maintain pitch and suggestions were made for consideration of a singing or family coach for use of tuning apps on her smart phone. As evaluated last session,, formal re-evaluation of acoustic measures demonstrate good improvement in vocal quality. This is consistent with auditory perceptual analysis of decreased frequency of vocal solis and improved ability to self correct. Martha demonstrated increased use of replenishing breathswith good results in vocal quality. Martha is able to demonstrate good vocal mechanics and improved vocal quality for speaking, singing and teaching. ?? Martha has demonstrated good benefit from REHAB THERAPIST intervention. Education has been ongoing on voice anatomy and physiology, vocal hygiene guidelines, and upper body and laryngeal relaxation exercises. Patient does??demonstrate comprehension and she has improved her hygiene with elimination of throat clearing. ?? GOALS: Long-term Goals: Voice Level 7: Individual's ability to successfully and independently participate in vocational, avocational, and social activities requiring high- or low-vocal demands is not limited by voice. Self-monitoring is effectively used, but only occasionally needed. MET 1. Martha will utilize proper vocal mechanics in all speaking situations via self-monitoring.MET 2. Martha will participate in vocational and avocational pursuits without vocal limitations.MET ?? Short-term Goals: Goal #1: Patient will master upper body and laryngeal relaxation techniques and will independently maintain relaxed postures during connected speech and singing tasks with 90% accuracy without cues.MET Goal #2: Patient will utilize forward resonance for increased vocal clarity during structured connected speech and singing tasks with 90% accuracy.MET Goal #3: Patient will demonstrate improved vocal hygiene by use of strategies to avoid voice overuse in the presence of background noise. MET PLAN/RECOMMENDATIONS: At this time skilled REHAB THERAPIST intervention will be discontinued. Martha was encouraged to contact me at this center if new concerns around her voice arise. Sheryl Bose M.S., [facility]-REHAB THERAPIST 09/18/2021 9:03 Plan ATTENDING PHYSICIAN: Medicare certification needed. Your signature indicates you approve the therapy goals and plan of care outlined on this document dated 09/18/2021. Thank you! Attending Physician Signature Date YAHAIRA HARMON 09/18/2021 15:41 documented in this encounter Plan of Treatment Not on file documented as of this encounter Visit Diagnoses Not on filedocumented in this encounter Care Teams E Tailer Relationship Specialty Start Date End Date Ava Leonard MD [address] [place] [id number] PCP - General 04/19/14 documented as of this encounter
--- OUTSIDE RECORDS SUMMARY | 2024-01-31 18:03 | XMS_ITS | Encounter Summary ---
Author Organization [facility] Address [address] [place] [address] Care Team Providers Care Body Straightener Name Role Phone Ava Leonard MD Primary Care Provider [phone] Encounter Details Date Type Department Care Team (Late st Contact Info) Description 01/16/2021 Orders Only [facility] [address] [place] [address] Ilan Mcelroy, RN [address] [place] [address] Encounter for preprocedure screening laboratory testing for COVID-19 (Primary Dx) Social History Tobacco Use Types Packs/Day Years [...] documented as of this encounter Visit Diagnoses Diagnosis Encounter for preprocedure screening laboratory testing for COVID-19- Primary documented in this encounter Care Teams Body Straightener Relationship Specialty Start Date End Date Ava Leonard MD [address] [place] [address] PCP - General 04/19/14 documented as of this encounter
--- OUTSIDE RECORDS SUMMARY | 2024-01-31 18:03 | XMS_ITS | Encounter Summary ---
Author Organization [facility] Address [address] [place] [address] Care Team Providers Care Sales Enablement Manager Name Role Phone Ava Leonard MD Primary Care Provider [phone] Reason for Visit * Reason Onset Date Comments Appointment Related 01/02/2021 Encounter Details Date Type Department Care Team (Late st Contact Info) Description 01/02/2021 Telephone [facility] [address] [place] [address] Kamron Prakash MD [address] [facility], [address] [place] [address] Appointment Related Social History Tobacco Use Types Packs/Day Years [...] encounter Miscellaneous Notes * Telephone Encounter - Gricelda Oliveros LPN - 01/02/2021 1147 EDT Called patient to explain - You have an upcoming patient visit with dr Dwain goff charlie on 01/17/21 at 1 pm Due to recent policy changes related to the Covid 19 pandemic we need you to get tested as you will likely have an in-office procedure during your appointment (scope). The order will beplaced and you will be contacted by the testing call center to schedule the test at a testing facili ty nearest you. You should be called approximately 7 days before your appointment and the test should be scheduled 3 days before the appointment. You will need to quarantine after the test until yourappointment by preferably staying home and yourself from others. If you must go to work/school separate yourself from others, and wear a mask when around others. Have family shop for you so you can travel straight from home to work/school. If you need a note for work/school we can provide one. If you have questions you can reply to this message or call the office at [phone]. Message left on vm documented in this encounter Plan of Treatment Not on file documented as of this encounter Visit Diagnoses Diagnosis Encounter for preprocedure screening laboratory testing for COVID-19- Primary documented in this encounter Care Teams Sales Enablement Manager Relationship Specialty Start Date End Date Ava Leonard MD [address] [facility] [address] [place] [address] PCP - General 04/19/14 documented as of this encounter
--- OUTSIDE RECORDS SUMMARY | 2024-01-31 18:03 | XMS_ITS | Encounter Summary ---
Author Organization [facility] Address [address] [place] [address] Care Team Providers Care Marketing Information Coordinator Name Role Phone Ava Leonard MD Primary Care Provider [phone] [phone] Encounter Details Date Type Department Care Team (Latest Contact Info) Description 07/06/2016 7:15 EDT - 07/06/2016 23:59 EDT Hospital Encounter [facility] [place] [address] [place] [address] Ava Leonard MD [address] [place] [address] [address] [place] [address] Discharge Disposition: Auto Discharge Social History Tobacco Use Types Packs/Day Years Used Date Smoking Tobacco: Former Cigarettes 1.5 2 0 03/25/1977 - 03/25/1979 Smokeless Tobacco: Never Alcohol Use Standard Drinks/Week Comments Not Asked 0 (1 standard drink = 0.6 oz pur e alcohol) Sex and Gender Information Value Date Recorded Sex Assigned at Not on file Gender Identity Female 03/12/2019 11:22 EST Sexual Orientation Not on file documented as of this encounter Discharge Diagnoses Diagnosis Z12.31 Encounter for screening mammogram for malignant neoplasm of breast-Z12.31[ICD-10-CM] documented in this encounter Discharge Disposition Disposition Code Departure Means Destination Auto Discharge Home documented in this encounter Plan of Treatment Not on file documented as of this encounter Visit Diagnoses Not on filedocumented in this encounter Care Teams Marketing Information Coordinator Relationship Specialty Start Date End Date Ava Leonard MD [address] [place] [address] PCP - General 04/19/14 documented as of this encounter
--- OUTSIDE RECORDS SUMMARY | 2024-01-31 18:03 | XMS_ITS | Encounter Summary ---
Author Organization [facility] Address [address] [place] [address] Care Team Providers Care Public Speaking Instructor Name Role Phone Ava Leonard MD Primary Care Provider [phone] [phone] Encounter Details Date Type Department Care Team (Late st Contact Info) Description 10/19/2019 Lab Requisition [facility] Pathology & Laboratory Medicine - [facility] [address] [place] [address] Ava Leonard MD [address] [place] [address] [address] [place] [address] Vitamin D deficiency, unspecified Social [...] Date/Time Associated Diagnosis Comments VITAMIN D (25,OH) Today 10/19/2019 10: 34 EDT Vitamin D deficiency, unspecified [ICD-10-CM] documented in this encounter Results * (ABNORMAL) VITAMIN D (25,OH) (10/19/2019 10:34 EDT) 25OH Vitamin D Tot 142.0(H) 30.0 - 100.0 ng/mL 10/20/2019 10:34 EDT [facility] Comment: Vitamin D 25,OH Interpretive Ranges: Deficiency: ??<10.0 ng/mL Insufficiency: ??10.0 - 30.0 ng/mL Sufficiency: ??30.0 - 100.0 ng/mL Toxicity: ??>100.0 ng/mL Blood VENOUS BLOOD / Unknown 10/19/2019 10:34 EDT 10/19/2019 15:27 EDT Ava Leonard MD CHEMISTRY & BLOOD GAS ORDERABLES [facility] [address] [place] [address] documented in this encounter Visit Diagnoses Diagnosis Vitamin D deficiency, unspecified documented in this encounter Care Teams Public Speaking Instructor Relationship Specialty Start Date End Date Ava Leonard MD [address] [place] [address] [address] [place] [address] PCP - General 04/19/14 documented as of this encounter
--- OUTSIDE RECORDS SUMMARY | 2024-01-31 18:03 | XMS_ITS | Encounter Summary ---
Author Organization [facility] Address [address] [place] [address] Care Team Providers Care Patent Prosecution Attorney Name Role Phone Ava Leonard MD Primary Care Provider [phone] [phone] Reason for Visit * Reason Comments Hoarse Other dysphonia * Referral (Routine) - Receiving Office to Obtain Authorization Specialty Diagnoses / Procedures [email or web address] Referred To Contact Otolaryngology Diagnoses Dysphonia Ava Leonard MD [address] [place] [address] [address] [place] [address] [facility] [address] [place] [address] Referral ID Status Reason Start Date Expiration Date Visits Requested Visits Authorized [id number] Receiving Office to Obtain Authorization 1 1 Encounter Details Date Type Department Care Team (Late st Contact Info) Description 02/02/2021 13:00 EST Office Visit [facility] ENT- [facility] [place] [address] [place] [address] Kamron Prakash MD [address] [facility], Level 4 [place] [id number] Muscle tension dysphonia (Primary Dx) Social History Tobacco Use Types [...] as of this encounter Progress Notes * Kamron Prakash MD - 02/02/2021 1300 EST Subjective: Patient ID: Martha Solares is an 70 y.o. female. Chief Complaint Patient presents with ??? Hoarse ??? Other dysphonia Ava Leonard has requested that I see Martha Solares in consultation regarding hoarseness. HPI Martha Solares is seen today for hoarseness affecting her speaking and singing voice. This is been an issue since last winter but in retrospect may have started several years earlier. This was gradual in onset without a clear antecedent event, injury or illness. She describes her voice is gravelly with a rough and raspy quality. Her singing voice has been affected in terms of her range where she used to be a for Soprano now she is a second Soprano or even in radiant. She sings at home with her grandchildren and during times of pentecostal. She does not have any difficulty breathing or swallowing. She will occasionally clear her throat but denies a lump in throat sensation. No sore throat, otalgia or hemoptysis. There has been purposeful weight loss. She denies a history of GERD, asthma or allergies. She does experience some increased sinus pressure and teeth pain with barometric pressure changes but no rhinorrhea, sneezing fits, itchy eyes. She maintains good hydration. She rarely drinks caffeine or alcohol. She smoked 1 pack a day for several years but quit over 40 years ago. Past Medical History: Diagnosis Date ??? Migraines Past Surgical History: Procedure Laterality Date ??? BREAST BIOPSY ??? BREAST FNA Family History Problem Relation Age of Onset ??? Breast Cancer Maternal Aunt Social Social History Socioeconomic History ??? Marital status: Spouse name: Not on file ??? Number of children: Not on file ??? Years of education: Not on file ??? Highest education level: Not on file Occupational History ??? Not on file Tobacco Use ??? Smoking status: Former Smoker Packs/day: 1.50 Years: 2.00 Pack years: 3.00 Types: Cigarettes Quit date: 03/25/1979 Years since quittin.8 ??? Smokeless tobacco: Never Used Substance and Sexual Activity ??? Alcohol use: Not on file ??? Drug use: Not on file ??? Sexual activity: Not on file Other Topics Concern ??? Not on file Social History Narrative ??? Not on file Social Determinants of Health Financial Resource Strain: ??? Difficulty of Paying Living Expenses: Not on file Food Insecurity: ??? Worried About Running Out of Food in the Last Year: Not on file ??? Ran Out of Food in the Last Year: Not on file Transportation Needs: ??? Lack of Transportation (Medical): Not on file ??? Lack of Transportation (Non-Medical): Not on file Physical Activity: ??? Days of Exercise per Week: Not on file ??? Minutes of Exercise per Session: Not on file Stress: ??? Feeling of Stress : Not on file Social Connections: ??? Frequency of Communication with Friends and Family: Not on file ??? Frequency of Social Gatherings with Friends and Family: Not on file ??? Attends Restorationist Services: Not on file ??? Active Member of Clubs or Organizations: Not on file ??? Attends Club or Organization Meetings: Not on file ??? Marital Status: Not on file No outpatient medications have been marked as taking for the 02/02/21 encounter (Office Visit) withKamron Prakash MD. Allergies Allergen Reactions ??? Penicillins ??? Wheat Review of Systems Constitutional: Positive for weight loss. Negative for chills, fever and malaise/fatigue. HENT: Negative for congestion, ear pain, hearing loss and sore throat. Eyes: Negative for blurred vision, double vision and photophobia. Respiratory: Negative for cough, hemoptysis, shortness of breath and wheezing. Cardiovascular: Negative for chest pain, palpitations, claudication and leg swelling. Gastrointestinal: Negative for heartburn. Musculoskeletal: Negative for joint pain and myalgias. Skin: Negative for rash. Neurological: Negative for sensory change, focal weakness and headaches. Endo/Heme/Allergies: Negative for environmental allergies. Does not bruise/bleed easily. - See HPI Objective: There were no vitals taken for this visit. Physical Exam Department of Otolaryngology PHYSICAL EXAMINATION CONSTITUTIONAL: VITAL SIGNS: Not reviewed APPEARANCE: The patient appears alert, cooperative, and comfortable. ABILITY TO COMMUNICATE / VOICE: Mild vocal roughness, glottal solis. No wheeze or stridor. HEAD AND FACE: INSPECTION: Normal without apparent scars, lesions, or masses. PALPATION: There are no masses or sinus tenderness. SALIVARY GLANDS: Submandibular and Parotid glands are normal bilaterally FACIAL STRENGTH: Intact and symmetrical bilaterally EXTERNAL EAR & NOSE: No external ear or nose deformity noted EYES: EYES: exam not performed EARS, NOSE, MOUTH AND THROAT: OTOSCOPY: Right external auditory canal: patent and non-inflamed Left external auditory canal: patent and non-inflamed Right tympanic membrane: intact and normally mobile without retraction, perforation or effusion Left tympanic membrane: intact and normally mobile without retraction, perforation or effusion WHISPER/TUNING FORK: Not assessed NOSE: normal turbinates and mucosa: septum in midline LIPS, TEETH & GUMS: normal for age ORAL CAVITY & OROPHARYNX: normal HYPOPHARYNX & PHARYNGEAL MURPHY: See flexible exam report LARYNX: See flexible exam report NASOPHARYNX: See flexible exam report NECK: GENERAL: Supple, no asymmetry or crepitus, trachea midline THYROID: Normal LYMPHATIC: CERVICAL LYMPH NODES: No pathologic cervical lymphadenopathy noted RESPIRATORY: LUNGS: Not examined CARDIOVASCULAR: CARDIOVASCULAR: Not examined NEUROLOGIC: NEUROLOGIC: Normal mood and affect Endoscopy Procedure Note Pre-procedure Diagnosis: Hoarseness / Dysphonia Post-procedure Diagnosis: same Indications: Hoarseness, dysphagia or aspiration - not able to be clearly evaluated by indirect laryngoscopy Anesthesia: Cophenylcaine Endoscopy Type: Laryngoscopy using a flexible laryngoscope Procedure Details: With the patient sitting upright in the examining chair informed consent was obtained. The left nostril was topically anesthetized with cotton pledgets. After waiting an appropriate period of time for anesthesia/ vasoconstriction to become effective (if this was applicable), the scope was passed into the left nostril and the nasopharynx, oropharynx, hypopharynx and larynx were examined. Condition: Patient tolerated procedure well and left the office in a stable condition. Complications: None Findings: Nasopharynx: Normal exam of choanae, eustachian tubes, and adenoids for age Oropharynx: Normal exam of tongue base, tonsils, and posterior pharynx Hypopharynx: Normal piriform sinuses noted, no pooling of secretions Supraglottis: Moderate supraglottic hyperfunction Posterior Commissure: Normal Right True Vocal Fold: Normal Left True Vocal Fold: Normal Vocal Fold Mobility: Normal bilaterally Subglottis is clear Assessment: Encounter Diagnoses Name Primary? Muscle tension dysphonia Yes Plan: Several years of dysphonia affecting both her speaking and singing voice. This was gradual in onsetwithout vocal fold pathology or lesions on flexible laryngoscopy in the office today. 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 Vocal hygiene was reviewed including vocal mechanics and breath support. Handout was provided. I have also placed an CONTROL TECHNICIAN referral for voice evaluation and possible outpatient voice therapy. I will see her on as- needed basis in the future. documented in this encounter Plan of Treatment Not on file documented as of this encounter Visit Diagnoses Diagnosis Muscle tension dysphonia- Primary Dysphonia documented in this encounter Care Teams Patent Prosecution Attorney Relationship Specialty Start Date End Date Ava Leonard MD [address] [place] [address] PCP - General 04/19/14 documented as of this encounter
--- OUTSIDE RECORDS SUMMARY | 2024-01-31 18:03 | XMS_ITS | Encounter Summary ---
Author Organization [facility] Address [address] [place] [address] Care Team Providers Care Configuration Analyst Name Role Phone Ava Leonard MD Primary Care Provider [phone] [phone] Reason for Visit * Reason Comments New Patient Visit Encounter Details Date Type Department Care Team (Latest Contact Info) Description 06/13/2015 13:00 EDT Office Visit [facility] Osteoporosis - [facility] [address] [place] [address] Rafael Adkins MD Rad, Edu Felder MD Postmenopausal (Primary Dx); Osteopenia; History of bisphosphonate therapy Social History Tobacco Use Types Packs/Day Years [...] on file documented as of this encounter Last Filed Vital Signs Vital Sign Reading Time Taken Comments Blood Pressure - - Pulse - - Temperature - - Respiratory Rate - - Oxygen Saturation - - Inhaled Oxygen Concentration - - Weight 64.4 kg (142 lb) 06/13/2015 1300 EDT Height 159.7 cm (5' 2.87) 06/13/2015 1300 EDT Body Mass Index 25.26 06/13/2015 1300 EDT documented in this encounter Discharge Diagnoses Diagnosis M85.80 Other specified disorders of bone density and structure, unspecified site-M85.80[ICD-10-CM] documented in this encounter Progress Notes * Aruna Palomares - 06/13/2015 1321 EDT Procedure Date: 06/13/2015 Referring Physician: Ava Leonard MD Previous Scan Date: None at [facility] (Previous DXA in [place] in [place]) ABN Necessary: No Ht 159.7 cm (62.87) Wt 64.411 kg (142 lb) BMI 25.26 kg/m2 Done AP SPINE yes FEMUR yes TOTAL BODY FOREARM LVA/VFA HEEL US PATIENT HISTORY: There is no problem list on file for this patient. No past medical history on file. Additional Comments: Previous/Prior Comparison? None at [facility] (see [facility]) Pharmacologic? No Osteoporosis Center Patient Information Ethnicity/Race: Nutrition and Habits: Do you consume dairy? Yes Number of servings per day? 2-3 Do you take calcium supplements? Yes Amount? 800 mg daily Do you drink 3 or more alcoholic beverages daily? No Have you now or have you had in the past an eating disorder? No Do you or have you smoked in the last 6 months? No Family History: Did your mother or father have a hip fracture? No Do you have a parent or sibling who suffered a broken hip, shoulder, wrist or ribs after age 45? No Patient History-Medications: Have you taken any of the following medications or treatments. (Now or in the past)?: Steroid (prednisone, cortisone, Medrol) 5mg. or more for at least 3 months? No Thyroid medication for thyroid cancer suppression? No Anticonvulsants (phenytoin, Dilantin, phenobarbital) No GnRH Agonist (for endometriosis or prostate cancer, Example - Lupron) No Depo Povera (Current use) No Aromatase inhibitor: Letrozol (Femera), Anastrozole (arimidex), Exemestane (Aromasin) No TZD's for diabetes (Actos, Avandia) No Medical History: Have you had any of the following?: Hyperthyroidism (over active thyroid) No Hyperparathyroidism (over active parathyroid, high blood calcium) No Kidney failure No Rheumatoid arthritis No Seizure disorder (epilepsy) No Diabetes mellitus No Bariatric surgery/Gastric bypass No Back Surgery No Back X-ray No Fractures after age 40 No Area: Treatments: Alendronate (Fosamax) Past use for less then 6 mos due to side effects, Date stopped: 2005 Calcitonin (Miacalcin) Never, Date stopped: Denosumab (Prolia) Never, Date stopped: Ibandronate (Boniva) Never, Date stopped: Pamidronate (Aredia) Never, Date stopped: Raloxifene (Evista) Never, Date stopped: Risendronate (Actonel) Never, Date stopped: Teriparatide (Forteo) Never, Date stopped: Zoledronic Acid (Reclast, Zomata) Never, Date stopped: Other: Never, Date stopped: For Women Only: What was your age at menopause? 51 Are you taking estrogen now or within the past year? Never (Only Bio-Identical Topical Cream in 2010), Date stopped: Have you been treated for breast cancer? Never Comments: Aruna Palomares 06/13/2015 13:24 documented in this encounter Plan of Treatment Not on file documented as of this encounter Procedures Procedure Name Priority Date/Time Associated Diagnosis Comments ORDERS - SCANNED 06/22/2015 8:33 EDT DXA DUAL XRAY [facility]ORPT[facility]ET[facility] Routine 06/16/2015 9:58 EDT Osteopenia documented in this encounter Results * ORDERS - SCANNED (06/22/2015 8:33 EDT) 06/22/2015 8:33 EDT Scan 2 It Investment/Portfolio Manager ADMISSION ORDERABLE S * DXA-DUAL XRAY ABSORPTIOMETRY FOR BONE DENSITY (06/16/2015 9:58 EDT) DEXA Bone Density [facility] DEXA Bone Density, External [facility] Anatomical Region Laterality Modality Other 06/16/2015 9:58 EDT Ava Leonard MD IMG DEXA ORDERABL ES documented in this encounter Visit Diagnoses Diagnosis Postmenopausal- Primary Asymptomatic postmenopausal status (age-related) (natural) Osteopenia Disorder of bone and cartilage, unspecified History of bisphosphonate therapy Personal history of other drug therapy documented in this encounter Care Teams Configuration Analyst Relationship Specialty Start Date End Date Ava Leonard MD [address] [facility] [address] [place] [address] PCP - General 04/19/14 documented as of this encounter
--- OUTSIDE RECORDS SUMMARY | 2024-01-31 18:03 | XMS_ITS | Encounter Summary ---
Author Organization [facility] Address [address] [place] [address] Care Team Providers Care Stone Mason Name Role Phone Ava Leonard MD Primary Care Provider [phone] [phone] Encounter Details Date Type Department Care Team (Latest Contact Info) Description 07/11/2020 Travel Social History Tobacco Use Types Packs/Day [...] 11:22 EST Sexual Orientation Not on file COVID-19 Exposure Response Date Recorded In the last month, have you been in contact with someone who was confirmed or suspected to have Coronavirus / COVID-19? No / Unsure 07/11/2020 14:34 EDT documented as of this encounter Plan of Treatment Not on file documented as of this encounter Visit Diagnoses Not on filedocumented in this encounter Care Teams Stone Mason Relationship Specialty Start Date End Date Ava Leonard MD [address] [place], [place] [id number] PCP - General 1/26/15 documented as of this encounter
--- OUTSIDE RECORDS SUMMARY | 2024-01-31 18:03 | XMS_ITS | Encounter Summary ---
Author Organization [facility] Address [address] [place] [address] Care Team Providers Care Informatica Name Role Phone Ava Leonard MD Primary Care Provider +1 [phone] Reason for Referral * Radiology Services (Routine) - Closed Specialty Diagnoses / Procedures Referred By Marc covington Referred To Contact Diagnoses Cholesterolosis of gallbladder Procedures US ABDOMEN LIMITED Ava Leonard MD [address] [place] [phone] Referral ID Status Reason Start Date Expiration Date Visits Re quested Visits Authorized [id number] Closed 05/04/2020 1 1 Reason for Visit * Radiology Services (Routine) - Closed Specialty Diagnoses / Procedures Referred By Marc covington Referred To Contact Diagnoses Cholesterolosis of gallbladder Procedures US ABDOMEN LIMITED Ava Leonard MD [address] [place] [phone] Referral ID Status Reason Start Date Expiration Date Visits Re quested Visits Authorized [id number] Closed 05/04/2020 1 1 Encounter Details Date Type Department Care Team (Latest Contact Info) Description 05/18/2020 8:17 EST - 05/18/2020 23:59 EST Hospital [facility] Radiology US - [address] [address] Cholesterolosis of gallbladder Discharge Disposition: Home or Self Care Social History Tobacco Use Types Packs/Day [...] have Coronavirus / COVID-19? No / Unsure 05/18/2020 8:16 EST documented as of this encounter Discharge Disposition Disposition Code Departure Means Destination Home or Self Care documented in this encounter Plan of Treatment Not on file documented as of this encounter Procedures Procedure Name Priority Date/Time Associated Diagnosis Comments US ABDOMEN LIMITED Routine 05/18/2020 8: 43 EST Cholesterolosis of gallbladder documented in this encounter Results * US ABDOMEN LIMITED (05/18/2020 8:43 EST) Anatomical Region Laterality Modality Abdomen, Body Ultrasound 05/18/2020 10:3 9 EST Impressions 05/18/2020 10:39 EST Gallbladder polyps measuring up to 7 mm. Per KRISTIE guidelines, annual follow-up is recommended for 5 years. Narrative 05/18/2020 10:39 EST US ABDOMEN LIMITED ??05/18/2020 8:30 AM SIGNS AND SYMPTOMS/COMMENTS: re-eval gallbladder polyps seen on imaging in 02/2019 COMPARISON: Right upper quadrant ultrasound from 03/06/2019. TECHNIQUE: Grayscale and Doppler ultrasound evaluation of the right upper quadrant of the abdomen was performed. FINDINGS: PANCREAS: Imaged portions of the pancreas are normal. LIVER: The liver measures 16.0 cm in length, which is normal. Liver is normal in echogenicity and echotexture. No focal hepatic lesion is identified. RIGHT KIDNEY: The right kidney measures 12.0 cm in length. No hydronephrosis or shadowing calculus. GALLBLADDER: The gallbladder wall measures 2.9 mm in thickness, which is normal. Numerous gallbladder polyps are again identified measuring up to 7 mm. Shadowing gallstones are also noted layering dependently within the gallbladder. BILE DUCTS: The common duct measures 4 mm in diameter at the lucrecia hepatis, which is normal. No intrahepatic biliary ductal dilatation. PROXIMAL ABDOMINAL AORTA / IVC: The proximal abdominal aorta and IVC are normal. Procedure Note Aidan Case MD - 05/18/2020 US ABDOMEN LIMITED 05/18/2020 8:30 AM SIGNS AND SYMPTOMS/COMMENTS: re-eval gallbladder polyps seen on imaging in02/2019 COMPARISON: Right upper quadrant ultrasound from 03/06/2019. TECHNIQUE: Grayscale and Doppler ultrasound evaluation of the right upperquadrant of the abdomen was performed. FINDINGS: PANCREAS: Imaged portions of the pancreas are normal. LIVER: The liver measures 16.0 cm in length, which is normal. Liver isnormal in echogenicity and echotexture. No focal hepatic lesion isidentified. RIGHT KIDNEY: The right kidney measures 12.0 cm in length. Nohydronephrosis or shadowing calculus. GALLBLADDER: The gallbladder wall measures 2.9 mm in thickness, which isnormal. Numerous gallbladder polyps are again identified measuring up to 7mm. Shadowing gallstones are also noted layering dependently within thegallbladder. BILE DUCTS: The common duct measures 4 mm in diameter at the portahepatis, which is normal. No intrahepatic biliary ductal dilatation. PROXIMAL ABDOMINAL AORTA / IVC: The proximal abdominal aorta and IVC arenormal. IMPRESSION Gallbladder polyps measuring up to 7 mm. Per KRISTIE guidelines, annualfollow-up is recommended for 5 years. Ava Leonard MD [facility] US ORDERABLES documented in this encounter Visit Diagnoses Diagnosis Cholesterolosis of gallbladder documented in this encounter Care Teams Informatica Relationship Specialty Start Date End Date Ava Leonard MD [address] [place] [address] PCP - General 04/19/14 documented as of this encounter
--- OUTSIDE RECORDS SUMMARY | 2024-01-31 18:03 | XMS_ITS | Encounter Summary ---
Author Organization [facility] Address [address] [place] [address] Care Team Providers Care Communications Specialist Name Role Phone Ava Leonard MD Primary Care Provider [phone] [phone] Reason for Referral * Radiology Services (Routine) - Closed Specialty Diagnoses / Procedures Referred By Contac t Referred To Contact Radiology Diagnoses Pulsatile tinnitus, right ear Procedures MR ANGIO HEAD WO CONTRAST Ava Leonard MD [address] [place] [phone] Referral ID Status Reason Start Date Expiration Date Visits Re quested Visits Authorized [id number] Closed 02/03/2019 1 1 Reason for Visit * Radiology Services (Routine) - Closed Specialty Diagnoses / Procedures Referred By Contac t Referred To Contact Radiology Diagnoses Pulsatile tinnitus, right ear Procedures MR ANGIO HEAD WO CONTRAST Ava Leonard MD [address] [place] [phone] Referral ID Status Reason Start Date Expiration Date Visits Re quested Visits Authorized [id number] Closed 02/03/2019 1 1 Encounter Details Date Type Department Care Team (Latest Contact Info) Description 03/16/2019 6:17 EST - 03/16/2019 8:23 EST Hospital Encounter [facility] [address] [place] [address] Pulsatile tinnitus, right ear Discharge Disposition: Home or Self Care Social [...] file documented as of this encounter Discharge Disposition Disposition Code Departure Means Destination Home or Self Care documented in this encounter Plan of Treatment Not on file documented as of this encounter Procedures Procedure Name Priority Date/Time Associated Diagnosis Comments MR ANGIO HEAD WO CONTRAST Routine 03/16/2019 7:46 EST Pulsatile tinnitus, right ear documented in this encounter Results * MR ANGIO HEAD WO CONTRAST (03/16/2019 7:46 EST) Anatomical Region Laterality Modality Head Magnetic Resonan ce 03/16/2019 10:3 3 EST Impressions 03/16/2019 10:33 EST 1. Supratentorial white matter T2 FLAIR hyperintensities likely reflecting mild small vessel ischemic change. 2. Bilateral mastoid effusions. I have personally reviewed the images and the above interpretation and agree with the findings. Narrative 03/16/2019 10:33 EST MR HEAD W WO CONTRAST, MR ANGIO HEAD WO CONTRAST ??03/16/2019 6:52 AM Signs And Symptoms/Comments: 4 weeks of persisting right ear pulsatile tinnitus. Rule out vascular abnormality, structural abnormality or lesion. Comparison: None Technique: MR brain with and without contrast .Additional thin section images were obtained through the internal auditory canal. MR angiogram head without contrast with three-dimensional reformations. Findings: There is no acute hemorrhage or evidence of recent infarction. There is no midline shift or hydrocephalus. The flow voids and intravascular enhancement are normal appropriate. There are scattered T2 FLAIR hyperintensities in the supratentorial subcortical and periventricular white matter which is likely representing chronic microangiopathic changes. Otherwise the brain parenchyma demonstrates no significant abnormality. The paranasal sinuses are predominantly clear. Small bilateral mastoid effusions present. The bone marrow signal is normal. Following contrast administration there is no abnormal parenchymal or leptomeningeal enhancement. Procedure Note Mayela Bishop MD - 03/16/2019 MR HEAD W WO CONTRAST, MR ANGIO HEAD WO CONTRAST 03/16/2019 6:52 AM Signs And Symptoms/Comments: 4 weeks of persisting right ear pulsatile tinnitus. Rule out vascularabnormality, structural abnormality or lesion. Comparison: None Technique: MR brain with and without contrast .Additional thin section images wereobtained through the internal auditory canal. MR angiogram head without contrast with three-dimensional reformations. Findings: There is no acute hemorrhage or evidence of recent infarction. There is nomidline shift or hydrocephalus. The flow voids and intravascularenhancement are normal appropriate. There are scattered T2 FLAIR hyperintensities in the supratentorialsubcortical and periventricular white matter which is likely representingchronic microangiopathic changes. Otherwise the brain parenchymademonstrates no significant abnormality. The paranasal sinuses are predominantly clear. Small bilateral mastoideffusions present. The bone marrow signal is normal. Following contrast administration there is no abnormal parenchymal orleptomeningeal enhancement. IMPRESSION 1. Supratentorial white matter T2 FLAIR hyperintensities likely reflectingmild small vessel ischemic change. 2. Bilateral mastoid effusions. I have personally reviewed the images and the above interpretation andagree with the findings. Ava Leonard MD IMG MRI ORDERABLE S documented in this encounter Visit Diagnoses Diagnosis Pulsatile tinnitus, right ear documented in this encounter Care Teams Communications Specialist Relationship Specialty Start Date End Date Ava Leonard MD [address] [place] [address] PCP - General 04/19/14 documented as of this encounter
--- OUTSIDE RECORDS SUMMARY | 2024-01-31 18:03 | XMS_ITS | Encounter Summary ---
Author Organization [facility] Address [address] [place] [address] Care Team Providers Care Laborer Rags Name Role Phone Ava Leonard MD Primary Care Provider [phone] [phone] Encounter Details Date Type Department Care Team (Late st Contact Info) Description 06/16/2015 Orders Only [facility] [address] [place] [address] Ava Leonard MD [address] [facility] [address] [place] [address] Social History Tobacco Use Types Packs/Day Years [...] on filedocumented in this encounter Care Teams Laborer Rags Relationship Specialty Start Date End Date Ava Leonard MD [address] [facility] [address] [place], [place] [address] PCP - General 04/19/14 documented as of this encounter
--- OUTSIDE RECORDS SUMMARY | 2024-01-31 18:03 | XMS_ITS | Encounter Summary ---
Author Organization [facility] Address [address] [place] [address] Care Team Providers Care Metal Drilling Machine Operator Name Role Phone Ava Leonard MD Primary Care Provider [phone] [phone] Encounter Details Date Type Department Care Team (Latest Contact Info) Description 07/11/2017 8:59 EDT - 07/11/2017 23:59 EDT Hospital Encounter [facility] [address] [place] [address] Ava Leonard MD [address] [place] [address] [address] [place] [address] Discharge Disposition: Auto Discharge Social [...] on filedocumented in this encounter Care Teams Metal Drilling Machine Operator Relationship Specialty Start Date End Date Ava Leonard MD [address] [place] [address] PCP - General 04/19/14 documented as of this encounter
--- OUTSIDE RECORDS SUMMARY | 2024-01-31 18:03 | XMS_ITS | Encounter Summary ---
Author Organization [facility] Address [address] [place] [address] Care Team Providers Care Tanbark Peeler Name Role Phone Ava Leonard MD Primary Care Provider [phone] [phone] Encounter Details Date Type Department Care Team (Late st Contact Info) Description 10/10/2020 Lab Requisition [facility] Pathology & Laboratory Medicine - [facility] [address] [place] [address] Ava Leonard MD [address] [place] [address] [address] [place] [address] Vitamin D deficiency, unspecified Social [...] Associated Diagnosis Comments VITAMIN D (25,OH) Routine 10/10/2020 12: 06 EDT Vitamin D deficiency, unspecified documented in this encounter Results * VITAMIN D (25,OH) (10/10/2020 12:06 EDT) 25OH Vitamin D Tot 95.0 30.0 - 100.0 ng/mL 10/11/2020 10:19 EDT [facility] Comment: Vitamin D 25,OH Interpretive Ranges: Deficiency: ??<10.0 ng/mL Insufficiency: ??10.0 - 30.0 ng/mL Sufficiency: ??30.0 - 100.0 ng/mL Toxicity: ??>100.0 ng/mL Blood VENOUS BLOOD / Unknown 10/10/2020 12:06 EDT 10/10/2020 19:59 EDT Ava Leonard MD CHEMISTRY & BLOOD GAS ORDERABLES [facility] [address] [place] [address] documented in this encounter Visit Diagnoses Diagnosis Vitamin D deficiency, unspecified documented in this encounter Care Teams Tanbark Peeler Relationship Specialty Start Date End Date Ava Leonard MD [address] [facility] [place] [address] PCP - General 04/19/14 documented as of this encounter
--- OUTSIDE RECORDS SUMMARY | 2024-01-31 18:03 | XMS_ITS | Encounter Summary ---
Author Organization [facility] Address [address] [place] [address] Care Team Providers Care Residential Installer Name Role Phone Ava Leonard MD Primary Care Provider [phone] [phone] Reason for Visit * Reason Onset Date Comments COVID-19 01/08/2021 Testing Encounter Details Date Type Department Care Team (Late st Contact Info) Description 01/08/2021 Telephone [facility] [employer] [address] [place] [address] Kamron Prakash MD [address] [facility] [place] [address] COVID-19 (Testing) Social History Tobacco Use Types Packs/Day Years [...] encounter Miscellaneous Notes * Telephone Encounter - Christine Griffin - 01/08/2021 1017 EDT Patient will be in [place] until the evening of 01/14 and cannot get COVID-19 testing in time for her appt on 01/17. Patient is requesting a call to discuss options/possible rescheduling. documented in this encounter Plan of Treatment Not on file documented as of this encounter Visit Diagnoses Not on filedocumented in this encounter Care Teams Residential Installer Relationship Specialty Start Date End Date Ava Leonard MD [address] [employer] [address] [place] [address] PCP - General 04/19/14 documented as of this encounter
--- OUTSIDE RECORDS SUMMARY | 2024-01-31 18:03 | XMS_ITS | Referral Summary ---
Author Organization [facility] Address [address] [place] [address] Care Team Providers Care Mail Agent Name Role Phone Ava Leonard MD Primary Care Provider [phone] [phone] Allergies Active Allergy Reactions Criticality Noted Date Comments Alendronate 04/05/2023 Severe headaches Penicillins 02/02/2021 Levothyroxine 04/05/2023 Suicidal ideation, nervous Bupropion Hcl 04/05/2023 Suicidal ideation Wheat 02/02/2021 Medications Medication Sig Dispensed Refills Start Date End Date Status B-complex with vitamin C (VITAMIN B COMPLEX-C ORAL) Take by mouth. Active ergocalciferol, vitamin D2, (VITAMIN D ORAL) Take by mouth. Active vitamin E acetate (VITAMIN E ORAL) Take by mouth. Acti ve Immunizations Name Administration Dates Next Due Covid-19 mRNA Vaccine (MODER NA COVID-19) PF 0.5 ml IM (12 yrs+) 07/04/2020,06/06/2020 Social History Tobacco Use Types Packs/Day Years [...] 11:22 EST Sexual Orientation Not on file Last Filed Vital Signs Vital Sign Reading Time Taken Comments Blood Pressure - - Pulse - - Temperature - - Respiratory Rate - - Oxygen Saturation - - Inhaled Oxygen Concentration - - Weight 60.3 kg (133 lb) 08/01/2017 1332 EDT Height 158.6 cm (5' 2.44) 08/01/2017 1332 EDT Body Mass Index 23.98 08/01/2017 1332 EDT Plan of Treatment Not on file Procedures Procedure Name Priority Date/Time Associated Diagnosis Comments HEPATITIS C AB W REFLEX TO HCV RNA BY PCR Routine 03/06/2019 12:50 EST Abnormal levels of other serum enzymes from Last 3 Months or Most Recently Relevant to Health Maintenance Results * HEPATITIS C AB W REFLEX TO HCV RNA BY PCR (03/06/2019 12:50 EST) Hep C Antibody Negative Negative 03/09/2019 10:49 EST [facility] Blood VENOUS BLOOD / Unknown 03/06/2019 12:50 EST 03/06/2019 16:07 EST Ava Leonard MD CHEMISTRY & BLOOD GAS ORDERABLES [facility] [address] [place] [address] from Last 3 Months or Most Recently Relevant to Health Maintenance Care Teams Mail Agent Relationship Specialty Start Date End Date Ava Leonard MD [address] [place] [address] PCP - General 04/19/14
--- OUTSIDE RECORDS SUMMARY | 2024-01-31 18:03 | XMS_ITS | Encounter Summary ---
Author Organization [facility] Address [address] [place] [address] Care Team Providers Care Botany Technician Name Role Phone Ava Leonard MD Primary Care Provider [phone] [phone] Reason for Referral * (Routine) - Closed Specialty Diagnoses / Procedures Referred By Marc covington Referred To Contact Diagnoses Osteopenia Procedures DXA-DUAL XRAY ABSORPTIOMETRY FOR BONE DENSITY Ava Leonard MD [address] [place] [phone] Referral ID Status Reason Start Date Expiration Date Visits Re quested Visits Authorized [id number] Closed 07/01/2015 1 1 Encounter Details Date Type Department Care Team (Late st Contact Info) Description 06/01/2015 Orders Only [facility] Osteoporosis - [facility] [address] [place] [address] Ava Leonard MD [address] [facility] [address] [place] [phone] Osteopenia (Primary Dx) Social History Tobacco Use Types Packs/Day Years Used Date Smoking Tobacco: Never Assessed Sex and Gender Information Value Date Recorded Sex Assigned at Not on file Gender Identity Female 03/12/2019 11:22 EST Sexual Orientation Not on file documented as of this encounter Plan of Treatment Not on file documented as of this encounter Results * DXA-DUAL XRAY ABSORPTIOMETRY FOR BONE DENSITY (06/16/2015 9:58 EDT) DEXA Bone Density [facility] DEXA Bone Density, External [facility] Anatomical Region Laterality Modality Other 06/16/2015 9:58 EDT Ava Leonard MD IMG DEXA ORDERABL ES documented in this encounter Visit Diagnoses Diagnosis Osteopenia- Primary Disorder of bone and cartilage, unspecified documented in this encounter Care Teams Botany Technician Relationship Specialty Start Date End Date Ava Leonard MD [address] [place] [address] PCP - General 04/19/14 documented as of this encounter
--- OUTSIDE RECORDS SUMMARY | 2024-01-31 18:03 | XMS_ITS | Encounter Summary ---
Author Organization [facility] Address [address] [place] [address] Care Team Providers Care Spray Machine Operator Name Role Phone Ava Leonard MD Primary Care Provider [phone] [phone] Encounter Details Date Type Department Care Team (Late st Contact Info) Description 08/06/2017 Orders Only [facility] [address] [place] [address] Ava Leonard MD [address] [facility] [address] [place] [address] Social History Tobacco Use Types [...] on filedocumented in this encounter Care Teams Spray Machine Operator Relationship Specialty Start Date End Date Ava Leonard MD [address] [facility] [address] [place], [place] [id number] PCP - General 04/19/14 documented as of this encounter
--- OUTSIDE RECORDS SUMMARY | 2024-01-31 18:03 | XMS_ITS | Encounter Summary ---
Author Organization [facility] Address [address] [place] [address] Care Team Providers Care Cassandra Developer Name Role Phone Ava Leonard MD Primary Care Provider +1 [phone] Reason for Visit * Reason Comments Osteoporosis Encounter Details Date Type Department Care Team (Latest Contact Info) Description 08/01/2017 13:30 EDT Office Visit [facility] Oste[facility]osis - [facility] [place] [address] [place] [address] Shruti Núñez [place] [address] [place] [phone] Edu Anderson MD History of alendronate therapy (Primary Dx); Osteoporosis, unspecified osteoporosis type, unspecified pathological fracture presence; Screening for osteoporosis; Post-menopausal Social History Tobacco Use Types Packs/Day Years [...] Body Mass Index 23.98 08/01/2017 1332 EDT documented in this encounter Discharge Diagnoses Diagnosis M81.0 Age-related osteoporosis without current pathological fracture-M81.0[ICD-10-CM] documented in this encounter Progress Notes * Shanta Valles - 08/01/2017 1330 EDT Procedure Date: 08/01/2017 Referring Physician: Ava Leonard MD Previous Scan Date: 06/13/2015 ABN Necessary: No Ht 158.6 cm (62.44) Wt 60.3 kg (133 lb) BMI 23.98 kg/m2 Done AP SPINE Yes FEMUR Yes TOTAL BODY FOREARM LVA/VFA HEEL US PATIENT HISTORY: There is no problem list on file for this patient. No past medical history on file. Additional Comments: Previous/Prior Comparison? Yes Pharmacologic? No Osteoporosis Center Patient Information Ethnicity/Race: Nutrition and Habits: Do you consume dairy? Yes Number of servings per day? 1-2 Do you take calcium supplements? Yes Amount? 1000 mg daily Do you drink 3 or [...] the following?: Hyperthyroidism (over active thyroid) No was on it for 1 week for a node removal Hyperparathyroidism (over active parathyroid, high blood calcium) No Kidney failure No Rheumatoid arthritis No Seizure disorder (epilepsy) No Diabetes mellitus No Bariatric surgery/Gastric bypass No Back Surgery No Back X-ray No Fractures after age 40 No Area: Treatments: Alendronate (Fosamax) Past Use x 2 month, Date stopped: 15 yearsago Calcitonin (Miacalcin) Never, Date stopped: Denosumab (Prolia) Never, Date stopped: Ibandronate (Boniva) Never, Date stopped: Pamidronate (Aredia) Never, Date stopped: Raloxifene (Evista) Never, Date stopped: Risendronate (Actonel) Never, Date stopped: Teriparatide (Forteo) Never, Date stopped: Zoledronic Acid (Reclast, Zomata) Never, Date stopped: Other: Never, Date stopped: For Women Only: What was your age at menopause? 52 Are you taking estrogen now or within the past year? Never (H/O Bio-identical topical cream x 10 - 12 years and stopped around 6 years ago) , Date stopped: Have you been treated for breast cancer? 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 SHANTA VALLES 08/01/2017 13:50 documented in this encounter Plan of Treatment Not on file documented as of this encounter Procedures Procedure Name Priority Date/Time Associated Diagnosis Comments DXA DUAL XRAY ABSORPTIOMETRY FOR BONE DENSITY ([facility] PERFORMED) Routine 08/06/2017 13:43 EDT Osteoporosis, unspecified osteoporosis type, unspecified pathological fracture presence documented in this encounter Results * DXA DUAL XRAY ABSORPTIOMETRY FOR BONE DENSITY (08/06/2017 13:43 EDT) DEXA Bone Density [facility] DEXA Bone Density, External [facility] Anatomical Region Laterality Modality Other 08/06/2017 13:4 3 EDT Ava Leonard MD IMG DEXA ORDERABL ES documented in this encounter Visit Diagnoses Diagnosis History of alendronate therapy- Primary Osteoporosis, unspecified osteoporosis type, unspecified pathological fracture presence Screening for osteoporosis Special screening for osteoporosis Post-menopausal Asymptomatic postmenopausal status (age-related) (natural) documented in this encounter Care Teams Cassandra Developer Relationship Specialty Start Date End Date Ava Leonard MD [address] [facility] [address] [place] [address] PCP - General 04/19/14 documented as of this encounter
--- OUTSIDE RECORDS SUMMARY | 2024-01-31 18:03 | XMS_ITS | Encounter Summary ---
Author Organization [facility] Address [address] [place] [address] Care Team Providers Care Patient Services Representative Name Role Phone Ava Leonard MD Primary Care Provider +1 -[phone] Encounter Details Date Type Department Care Team (Latest Contact Info) Description 05/18/2020 Travel Social History Tobacco Use Types Packs/Day [...] 8:16 EST documented as of this encounter Plan of Treatment Not on file documented as of this encounter Visit Diagnoses Not on filedocumented in this encounter Care Teams Patient Services Representative Relationship Specialty Start Date End Date Ava Leonard MD [address] [place], [place] [address] PCP - General 04/19/14 documented as of this encounter
--- OUTSIDE RECORDS SUMMARY | 2024-01-31 18:03 | XMS_ITS | Encounter Summary ---
Author Organization [facility] Address [address] [place] [address] Care Team Providers Care Emergency Medicine Physician Assistant Name Role Phone vAa Leonard MD Primary Care Provider +1 -[phone] Encounter Details Date Type Department Care Team (Late st Contact Info) Description 02/03/2019 [facility] Only [facility] Radiology MRI - Main [place] [address] [place] [address] Shari Aquino Social History Tobacco Use Types Packs/Day Years [...] on filedocumented in this encounter Care Teams Emergency Medicine Physician Assistant Relationship Specialty Start Date End Date Ava Leonard MD [address] [facility] [address] [place] [address] PCP - General 04/19/14 documented as of this encounter
--- OUTSIDE RECORDS SUMMARY | 2024-01-31 18:03 | XMS_ITS | Encounter Summary ---
Author Organization [facility] Address [address] [place] [address] Care Team Providers Care Slasher Hand Name Role Phone Ava Leonard MD Primary Care Provider +1 [phone] Encounter Details Date Type Department Care Team (Late st Contact Info) Description 06/13/2015 Results Only Imaging [facility] [phone] Ava Leonard MD [address] [place] [address] [address] [place] [address] Social History Tobacco Use Types [...] Procedure Name Priority Date/Time Associated Diagnosis Comments MA 2D/3D BILATERAL STEPHEN ROUTINE SCREENING MAMMO 06/13/2015 11:14 EDT documented in this encounter Results * MA 2D/3D BILATERAL STEPHEN ROUTINE SCREENING MAMMO (06/13/2015 11:14 EDT) Anatomical Region Laterality Modality Other 06/13/2015 11:1 4 EDT 06/15/2015 9:36 EDT Narrative 06/15/2015 9:36 EDT Comparison has been made to previous images. Bilateral Breast Findings: (Routine digital views with CAD and 3D images with Tomosynthesis) There are scattered fibroglandular densities (25% - 50% fibroglandular). No significant masses, calcifications or other abnormalities are seen. IMPRESSION: BILATERAL BREASTS: Negative, no evidence of malignancy. Normal interval follow-up is recommended in 12 months. OVERALL ASSESSMENT - CATEGORY 1 - NEGATIVE END OF IMPRESSION These results will be communicated to your patient via a lay letter from Radiology. If any additional imaging is needed we will contact your patient directly. Procedure Note Naz Alonso MD - 06/15/2015 Comparison has been made to previous images. Bilateral Breast Findings: (Routine digital views with CAD and 3D images with Tomosynthesis) There are scattered fibroglandular densities (25% - 50% fibroglandular). No significant masses, calcifications or other abnormalities are seen. IMPRESSION: BILATERAL BREASTS: Negative, no evidence of malignancy. Normal interval follow-up is recommended in 12 months. OVERALL ASSESSMENT - CATEGORY 1 - NEGATIVE END OF IMPRESSION These results will be communicated to your patient via a lay letter from Radiology. If any additional imaging is needed we will contact your patient directly. Ava Leonard MD IMG MAMMOGRAPHY O RDERABLES documented in this encounter Visit Diagnoses Not on filedocumented in this encounter Care Teams Slasher Hand Relationship Specialty Start Date End Date Ava Leonard MD [address] [place] [address] PCP - General 04/19/14 documented as of this encounter
--- OUTSIDE RECORDS SUMMARY | 2024-01-31 18:03 | XMS_ITS | Encounter Summary ---
Author Organization [facility] Address [address] [place] [address] Care Team Providers Care Dough Puncher Name Role Phone Ava Leonard MD Primary Care Provider [phone] [phone] Reason for Referral * Radiology Services (Routine/Next Available) - Authorization Not Required Specialty Diagnoses / Procedures Referred By Contac t Referred To Contact Diagnoses Encounter for screening mammogram for malignant neoplasm of breast Procedures MA BREAST SCREENING STEPHEN BILATERAL Ava Leonard MD [address] [place] [phone] [facility] Referral ID Status Reason Start Date Expiration Date Visits Requested Visits Authorized [id number] Authorization Not Required 06/04/2021 1 1 Reason for Visit * Radiology Services (Routine/Next Available) - Authorization Not Required Specialty Diagnoses / Procedures Referred By Marc covington Referred To Contact Diagnoses Encounter for screening mammogram for malignant neoplasm of breast Procedures MA BREAST SCREENING STEPHEN BILATERAL Ava Leonard MD [address] [place] [phone] [facility] Referral ID Status Reason Start Date Expiration Date Visits Requested Visits Authorized [id number] Authorization Not Required 06/04/2021 1 1 Encounter Details Date Type Department Care Team (Latest Contact Info) Description 08/29/2021 11:05 EDT - 08/29/2021 23:59 EDT Hospital Encounter [facility] - [address] [address] Encounter for screening mammogram for malignant neoplasm of breast Discharge Disposition: Home or Self Care Social [...] Name Priority Date/Time Associated Diagnosis Comments MA BREAST SCREENING STEPHEN BILATERAL Routine 08/29/2021 11:38 EDT Encounter for screening mammogram for malignant neoplasm of breast documented in this encounter Results * MA BREAST SCREENING STEPHEN BILATERAL (08/29/2021 11:38 EDT) Anatomical Region Laterality Modality Breast Bilateral Mammography 08/29/2021 14:5 9 EDT Impressions 08/29/2021 14:59 EDT Negative, no evidence of malignancy. RECOMMENDATION: Routine screening mammography is recommended. OVERALL ASSESSMENT: BI-RADS 1: Negative These results will be communicated to your patient via a lay letter from Radiology. If any additional imaging is needed we will contact your patient directly. Narrative 08/29/2021 14:59 EDT MA BREAST SCREENING STEPHEN BILATERAL ??08/29/2021 11:20 AM History: Routine Comparison: ??Comparison has been made to previous images. Technique: Routine 3D tomosynthesis with synthesized 2D views with CAD Bilateral Breast Composition: There are scattered areas of fibroglandular density. Bilateral Breast Findings: ??No significant masses, calcifications or other abnormalities are seen. Procedure Note Sandra, Anson G, MD - 08/29/2021 MA BREAST SCREENING STEPHEN BILATERAL 08/29/2021 11:20 AM History: Routine Comparison: Comparison has been made to previous images. Technique: Routine 3D tomosynthesis with synthesized 2D views with CAD Bilateral Breast Composition: There are scattered areas of fibroglandulardensity. Bilateral Breast Findings: No significant masses, calcifications or otherabnormalities are seen. IMPRESSION Negative, no evidence of malignancy. RECOMMENDATION: Routine screening mammography is recommended. OVERALL ASSESSMENT: BI-RADS 1: Negative These results will be communicated to your patient via a lay letter fromRadiology. If any additional imaging is needed we will contact yourpatient directly. Ava Leonard MD IMG MAMMOGRAPHY O RDERABLES documented in this encounter Visit Diagnoses Diagnosis Encounter for screening mammogram for malignant neoplasm of breast Other screening mammogram documented in this encounter Care Teams Dough Puncher Relationship Specialty Start Date End Date Ava Leonard MD [address] [place] [address] PCP - General 04/19/14 documented as of this encounter
--- OUTSIDE RECORDS SUMMARY | 2024-01-31 18:03 | XMS_ITS | Encounter Summary ---
Author Organization [facility] Address [address] [place] [address] Care Team Providers Care Stogy Maker Name Role Phone Ava Leonard MD Primary Care Provider [phone] [phone] Encounter Details Date Type Department Care Team (Late st Contact Info) Description 07/11/2017 Results Only Imaging [facility] [phone] Ava Leonard MD [address] [place] [address] [address] [place] [address] Social History Tobacco Use Types [...] MA 2D/3D BILATERAL STEPHEN ROUTINE SCREENING MAMMO 07/11/2017 15:28 EDT documented in this encounter Results * MA 2D/3D BILATERAL STEPHEN ROUTINE SCREENING MAMMO (07/11/2017 15:28 EDT) Anatomical Region Laterality Modality Other 07/11/2017 15:2 8 EDT 07/12/2017 16:17 EDT Narrative 07/12/2017 16:17 EDT Comparison has been made to previous images. Bilateral Breast Findings: (Routine 3D tomosynthesis with synthesized 2D views with CAD) There are scattered fibroglandular densities (25% - [...] needed we will contact your patient directly. I have personally reviewed the images and the above interpretation and agree with the findings. Procedure Note Anson Flores MD - 07/12/2017 Comparison has been made to previous images. Bilateral Breast Findings: (Routine 3D tomosynthesis with synthesized 2D views with CAD) There are scattered fibroglandular densities (25% - [...] needed we will contact your patient directly. I have personally reviewed the images and the above interpretation and agree with the findings. Ava Leonard MD IMG MAMMOGRAPHY O RDERABLES documented in this encounter Visit Diagnoses Not on filedocumented in this encounter Care Teams Stogy Maker Relationship Specialty Start Date End Date Ava Leonard MD [address] [place] [address] PCP - General 04/19/14 documented as of this encounter
--- OUTSIDE RECORDS SUMMARY | 2024-01-31 18:03 | XMS_ITS | Encounter Summary ---
Author Organization [facility] Address [address] [place] [address] Care Team Providers Care Global Climate Change Analyst Name Role Phone Ava Leonard MD Primary Care Provider [phone] [phone] Reason for Referral * (Routine) - New Request Specialty Diagnoses / Procedures Referred By [facility] Referred To Contact Diagnoses Osteoporosis, unspecified osteoporosis type, unspecified pathological fracture presence Procedures DXA DUAL XRAY ABSORPTIOMETRY FOR BONE DENSITY Ava Leonard MD [address] [place] [phone] Referral ID Status Reason Start Date Expiration Date V isits Requested Visits Authorized [id number] New Request 05/30/2017 1 1 Encounter Details Date Type Department Care Team (Late st Contact Info) Description 05/30/2017 Orders Only [facility] Osteoporosis - Main [place] [address] [place] [address] Ava Leonard MD [address] [place] [phone] Osteoporosis, unspecified osteoporosis type, unspecified pathological fracture presence (Primary Dx) Social History Tobacco Use Types [...] documented as of this encounter Results * DXA DUAL XRAY ABSORPTIOMETRY FOR BONE DENSITY (08/06/2017 13:43 EDT) DEXA Bone Density [facility] DEXA Bone Density, External [facility] Anatomical Region Laterality Modality Other 08/06/2017 13:4 3 EDT Ava Leonard MD IMG DEXA ORDERABL ES documented in this encounter Visit Diagnoses Diagnosis Osteoporosis, unspecified osteoporosis type, unspecified pathological fracture presence- Primary documented in this encounter Care Teams Global Climate Change Analyst Relationship Specialty Start Date End Date Ava Leonard MD [address] [place] [address] PCP - General 04/19/14 documented as of this encounter
--- OUTSIDE RECORDS SUMMARY | 2024-01-31 18:03 | XMS_ITS | Encounter Summary ---
Author Organization [facility] Address [address] [place] [address] Care Team Providers Care Manager Wireless Name Role Phone Ava Leonard MD Primary Care Provider +1 -[phone] Encounter Details Date Type Department Care Team (Late st Contact Info) Description 07/14/2018 Results Only Imaging [facility] [phone] Ava Leonard MD [address] [place] [address] [address] [place] [address] Social History Tobacco Use Types [...] MA 2D/3D BILATERAL STEPHEN ROUTINE SCREENING MAMMO 07/14/2018 9:39 EDT documented in this encounter Results * MA 2D/3D BILATERAL STEPHEN ROUTINE SCREENING MAMMO (07/14/2018 9:39 EDT) Anatomical Region Laterality Modality Other 07/14/2018 9:39 EDT 07/17/2018 17:04 EDT Narrative 07/17/2018 17:04 EDT Comparison has been made to previous [...] your patient directly. Procedure Note Naz Alonso MD, MD - 07/17/2018 Comparison has been made to previous images. [...] on filedocumented in this encounter Care Teams Manager Wireless Relationship Specialty Start Date End Date Ava Leonard MD [address] [place] [address] PCP - General 04/19/14 documented as of this encounter
--- OUTSIDE RECORDS SUMMARY | 2024-01-31 18:03 | XMS_ITS | Encounter Summary ---
Author Organization [facility] Address [address] [place] [address] Care Team Providers Care Project Planner Name Role Phone Ava Leonard MD Primary Care Provider [phone] [phone] Encounter Details Date Type Department Care Team (Latest Contact Info) Description 05/30/2015 16:19 EST - 05/30/2015 16:20 [facility] Hospital Encounter [facility] - [address] [address] Ava Leonard MD [address] [place] [phone] Discharge Disposition: Home or Self Care Social History Tobacco Use Types Packs/Day Years Used Date Smoking Tobacco: Never Assessed Sex and Gender Information Value Date Recorded Sex Assigned at Not on file Gender Identity Female 03/12/2019 11:22 EST Sexual Orientation Not on file documented as of this encounter Discharge Diagnoses Diagnosis Z01.419 Encounter for gynecological examination (general) (routine) without abnormal findings-Z01.419[ICD-10-CM] Z11.51 Encounter for screening for human papillomavirus (HPV)-Z11.51[ICD-10-CM] documented in this encounter Discharge Disposition Disposition Code Departure Means Destination Home or Self Care documented in this encounter Plan of Treatment Not on file documented as of this encounter Visit Diagnoses Not on filedocumented in this encounter Care Teams Project Planner Relationship Specialty Start Date End Date Ava Leonard MD [address] [place] [address] PCP - General 04/19/14 documented as of this encounter
--- OUTSIDE RECORDS SUMMARY | 2024-01-31 18:03 | XMS_ITS | Encounter Summary ---
Author Organization [facility] Address [address] [place] [address] Care Team Providers Care Threshing Department Supervisor Name Role Phone Ava Leonard MD Primary Care Provider +1 -[phone] Encounter Details Date Type Department Care Team (Late st Contact Info) Description 08/22/2018 Results Only [facility] - [address] [address] Carolina Campos MD [address] [place] [address] Social History Tobacco Use Types Packs/Day Years [...] Procedure Name Priority Date/Time Associated Diagnosis Comments LYME AB Routine 08/22/2018 10:14 EDT COMPLETE BLOOD COUNT Routine 08/22/2018 10:14 EDT documented in this encounter Results * COMPLETE BLOOD COUNT (08/22/2018 10:14 EDT) WBC 6.09 4.0 - 12.4 K/cmm 08/22/2018 15:05 [facility] RBC 4.55 3.86 - 5.04 M/cmm 08/22/2018 15:05 [facility] Hemoglobin 12.6 11.6 - 15.2 gm/dl 08/22/2018 15:05 [facility] HCT 38.5 34.9 - 44.4 % 08/22/2018 15:05 [facility] MCV 85 81 - 98 fl 08/22/2018 15:05 [facility] MCH 27.7 26.7 - 33.3 pg 08/22/2018 15:05 [facility] MCHC 32.7 32.1 - 35.9 gm/dl 08/22/2018 15:05 [facility] RDW-CV 12.9 <14.7 % 08/22/2018 15:05 [facility] RDW-SD 39.6 <50.4 fl 08/22/2018 15:05 [facility] PLT 236 141 - 377 K/cmm 08/22/2018 15:05 [facility] MPV 12.2 9.5 - 12.7 fl 08/22/2018 15:05 [facility] BLOOD SPECIMEN / Unknown 08/22/2018 10:14 EDT 08/22/2018 14:34 EDT Carolina Campos MD HEMATOLOGY & PF4 O RDERABLES [facility] [address] [place] [address] * LYME AB (08/22/2018 10:14 EDT) Lyme AB Negative 08/25/2018 12:51 T [facility] Comment:Reference Range: Neg ative BLOOD SPECIMEN / Unknown 08/22/2018 10:14 EDT 08/22/2018 14:34 EDT Carolina Campos MD IMMUNOLOGY AND SER OLOGY ORDERABLES [facility] [address] [place] [address] documented in this encounter Visit Diagnoses Not on filedocumented in this encounter Care Teams Threshing Department Supervisor Relationship Specialty Start Date End Date Ava Leonard MD [address] [place] [address] PCP - General 04/19/14 documented as of this encounter
--- OUTSIDE RECORDS SUMMARY | 2024-01-31 18:03 | XMS_ITS | Clinical Summary ---
Author Organization [facility] Address [address] [place] [address] Care Team Providers Care Information Clerk Name Role Phone Ava Leonard MD Primary Care Provider +1 -[phone] Allergies Active Allergy Reactions Criticality Noted Date [...] PF 0.5 ml IM (12 yrs+) 07/04/2020,06/06/2020 Surgical History Surgery Date Site/Laterality Comments BREAST FNA BREAST BIOPSY Right Medical History Medical History Date Comments Migraines Family History Medical History Relation Comments Breast Cancer Maternal Aunt Relation Status Comments Maternal Aunt Social History Tobacco Use Types Packs/Day Years [...] 11:22 EST Sexual Orientation Not on file Obstetrics History Para Term AB IAB SAB Ectopic Multiple Livin g Live Births 2 2 Date Outcome GA Total Labor Labor/2nd/3rd Weight Sex Type Anes PTL Leda A1 A5 Name Clin Para Para Last Filed Vital Signs Vital Sign Reading Time Taken Comments Blood Pressure - - Pulse - - Temperature - - Respiratory Rate - - Oxygen Saturation - - Inhaled Oxygen Concentration - - Weight 60.3 kg (133 lb) 08/01/2017 1332 EDT Height 158.6 cm (5' 2.44) 08/01/2017 1332 EDT Body Mass Index 23.98 08/01/2017 1332 EDT Plan of Treatment Health Maintenance Due Date Last Done Comments RSV Immunization ( o r 60+ Years) (1 - 1-dose 60+ series) 2012 Fall Risk Screening 2017 COVID-19 Vaccine ( season) 11/24/202302/2021, 06/06/2020 Hepatitis C Screen Completed 03/06/2019 Procedures Procedure Name Priority Date/Time Associated Diagnosis Comments HEPATITIS C AB W REFLEX TO HCV RNA BY PCR Routine 03/06/2019 12:50 EST Abnormal levels of other serum enzymes from Last 3 Months or Most Recently Relevant to Health Maintenance Results * HEPATITIS C AB W REFLEX TO HCV RNA BY PCR (03/06/2019 12:50 EST) Hep C Antibody Negative Negative 03/09/2019 10:49 EST [facility] Blood VENOUS BLOOD / Unknown 03/06/2019 12:50 EST 03/06/2019 16:07 EST Ava Leonard MD CHEMISTRY & BLOOD GAS ORDERABLES [facility] [address] [place] [address] from Last 3 Months or Most Recently Relevant to Health Maintenance Care Teams Information Clerk Relationship Specialty Start Date End Date Ava Leonard MD [address] [place] [address] PCP - General 04/19/14
--- OUTSIDE RECORDS SUMMARY | 2024-01-31 18:03 | XMS_ITS | Encounter Summary ---
Author Organization [facility] Address [address] [place] [address] Care Team Providers Care Summer Analyst Name Role Phone Ava Leonard MD Primary Care Provider [phone] [phone] Encounter Details Date Type Department Care Team (Late st Contact Info) Description 08/29/2022 Lab Requisition [facility] Pathology & Laboratory Medicine - [facility] [address] [place] [address] Outr Resulting Lab, Provider Social History Tobacco Use Types Packs/Day [...] Date/Time Associated Diagnosis Comments LYME AB Routine 08/28/2022 12:15 EDT documented in this encounter Results * LYME AB (08/28/2022 12:15 EDT) Lyme Ab Negative Negative 08/30/2022 9:40 EDT [facility] Blood VENOUS BLOOD / Unknown 08/28/2022 12:15 EDT 08/29/2022 17:12 EDT Provider Outr Resulting Lab IMMUNOLOGY A ND SEROLOGY ORDERABLES Performing Organization Address City/State/[facility] Co de Phone Number [facility] [address] [place] [address] documented in this encounter Visit Diagnoses Not on filedocumented in this encounter Care Teams Summer Analyst Relationship Specialty Start Date End Date Ava Leonard MD [address] [place] [address] PCP - General 04/19/14 documented as of this encounter
--- OUTSIDE RECORDS SUMMARY | 2024-01-31 18:03 | XMS_ITS | Encounter Summary ---
Author Organization [facility] Address [address] [place] [address] Care Team Providers Care Framing Mill Supervisor Name Role Phone Ava Leonard MD Primary Care Provider [phone] [phone] Encounter Details Date Type Department Care Team (Late st Contact Info) Description 03/06/2019 Lab Requisition [facility] Pathology & Laboratory Medicine - [facility] [address] [place] [address] Ava Leonard MD [address] [place] [address] [address] [place] [address] Abnormal levels of other serum enzymes Social History Tobacco Use Types Packs/Day Years [...] EST Abnormal levels of other serum enzymes HEPATITIS A TOTAL ANTIBODY W REFLEX Routine 03/06/2019 12:50 EST Abnormal levels of other serum enzymes HEPATITIS B SURFACE ANTIBODY Routine 03/06/2019 12:50 EST Abnormal levels of other serum enzymes HEPATITIS B SURFACE ANTIGEN Routine 03/06/2019 12:50 EST Abnormal levels of other serum enzymes documented in this encounter Results * HEPATITIS B SURFACE ANTIBODY (03/06/2019 12:50 EST) Hep B Surface Ab, Quantitative <3.1 See Note mIU/mL 03/09/2019 10:00 EST [facility] Comment: Reference Range for Hep B Surface Ab, Quant: Positive: >= 10.0 mIU/mL Negative: ??< 10.0 mIU/mL Patient is presumed to not be immune to infection with Hepatitis B Virus. Hep B Surface Ab, Qualitative Negative See Note 03/09/2019 10:00 EST [facility] Comment: Reference Range for Hep B Surface Ab, Qual: Unvaccinated: ??Negative Vaccinated: ??Positive Blood VENOUS BLOOD / Unknown 03/06/2019 12:50 EST 03/06/2019 16:07 EST Ava Leonard MD CHEMISTRY & BLOOD GAS ORDERABLES Performing Organization Address City/[facility] Co de Phone Number [facility] [address] [place] [address] * HEPATITIS B SURFACE ANTIGEN (03/06/2019 12:50 EST) Hep B Surface Ag Negative Negative 03/09/2019 10:00 EST [facility] Blood VENOUS BLOOD / Unknown 03/06/2019 12:50 EST 03/06/2019 16:07 EST Ava Leonard MD CHEMISTRY & BLOOD GAS ORDERABLES Performing Organization Address [facility]/ZIP Co de Phone Number [facility] [address] [place] [address] * HEPATITIS C AB W REFLEX TO HCV RNA BY PCR (03/06/2019 12:50 EST) Hep C Antibody Negative Negative 03/09/2019 10:49 EST [facility] Blood VENOUS BLOOD / Unknown 03/06/2019 12:50 EST 03/06/2019 16:07 EST Ava Leonard MD CHEMISTRY & BLOOD GAS ORDERABLES Performing Organization Address City/[facility]/ZIP Co de Phone Number [facility] [address] [place] [address] * HEPATITIS A TOTAL ANTIBODY W REFLEX (03/06/2019 12:50 EST) Hepatitis A Antibody, Total Negative Negative 03/09/2019 10:53 EST [facility] Blood VENOUS BLOOD / Unknown 03/06/2019 12:50 EST 03/06/2019 16:07 EST Narrative [facility] - 03/09/2019 10:53 EST The result of this assay can be falsely elevated (Positive) due to the consumption of Biotin. Ava Leonard MD CHEMISTRY & BLOOD GAS ORDERABLES Performing Organization Address [facility] Co de Phone Number [facility] [address] [place] [address] documented in this encounter Visit Diagnoses Diagnosis Abnormal levels of other serum enzymes documented in this encounter Care Teams Framing Mill Supervisor Relationship Specialty Start Date End Date Ava Leonard MD [address] [place] [address] PCP - General 04/19/14 documented as of this encounter
--- OUTSIDE RECORDS SUMMARY | 2024-01-31 18:03 | XMS_ITS | Encounter Summary ---
[place] [address] Care Team Providers Care Drapery Head Former Name Role Phone Amaury Ely Primary Care Provider Reason for Referral * Diagnostic Test (Routine) - Closed Specialty Diagnoses / Procedures Referred By Contac t Referred To Contact Radiology Diagnoses Abdominal pain, right upper quadrant Procedures MRI Cholangiopancreatography wwo Amaury Herndon PA [address] [place] [address] [place] [address] Referral ID Status Reason Start Date Expiration Date V isits Requested Visits Authorized [id number] Closed Specialty Service Requested 10/18/2022 04/20/2024 1 1 Reason for Visit * Diagnostic Test (Routine) - Closed Specialty Diagnoses / Procedures Referred By Contac t Referred To Contact Radiology Diagnoses Abdominal pain, right upper quadrant Procedures MRI Cholangiopancreatography wwo Amaury Herndon PA [address] [place] [address] [place] [address] Referral ID Status Reason Start Date Expiration Date V isits Requested Visits Authorized [id number] Closed Specialty Service Requested 10/18/2022 04/20/2024 1 1 Encounter Details Date Type Department Care Team (Latest Contact Info) Description 11/13/2022 6:43 PM EDT - 11/13/2022 11:59 PM EDT Hospital [place] [address] Amaury Ely PA [address] [place] [address] Abdominal pain, right upper quadrant Discharge Disposition: Home Social History Tobacco Use Types Packs/Day Years Used Date Smoking Tobacco: Never Assessed Sex and Gender Information Value Date Recorded Sex Assigned at Not on file Gender Identity Not on file Sexual Orientation Not on file documented as of this encounter Plan of Treatment Not on file documented as of this encounter Procedures Procedure Name Priority Date/Time Associated Diagnosis Comments MRI CHOLANGIOPANCREATOGRAPHY WWO CONTRAST Routine 11/13/2022 8:19 PM EDT Abdominal pain, right upper quadrant documented in this encounter Results * MRI Cholangiopancreatography wwo Contrast (11/13/2022 8:19 PM EDT) Anatomical Region Laterality Modality Magnetic Resonan ce Impressions 11/14/2022 3:56 PM EDT 1. ??No evidence of acute cholecystitis on MRCP. 2. ??Several punctate gallbladder polyps. No follow-up imaging is necessary based on size. I have personally reviewed the image(s) and the resident's interpretation and agree with the findings, Brady Flores MD at 11/14/2022 3:56 PM Thank you for letting us participate in the care of this patient. ??If you are a health care provider and have any questions regarding this report, please contact the number below. ??For patients who have questions please contact the health youth care professional that requested your imaging first. ? Electronically signed by: Brady Flores MD, [facility] ([phone]), at 11/14/2022 3:56 PM Narrative 11/14/2022 3:56 PM EDT EXAMINATION: MRI CHOLANGIOPANCREATOGRAPHY WWO CONTRAST ? CLINICAL HISTORY: right upper abdominal pain with elevated alk phosph and ggt TECHNIQUE: MRCP performed prior to and following the intravenous administration of 12 mL Dotarem. 3-D MIPS were created. COMPARISON: None FINDINGS: Liver: Normal size and signal intensity. No lesions. Bile ducts: Intrahepatic bile ducts are well visualized and normal in caliber. The common bile duct is normal caliber. No intraluminal filling defects. Gallbladder: Punctate filling defects throughout the lumen are likely small polyps. No definite gallstones. Dependent biliary sludge. Normal wall. No adjacent inflammation. Pancreas: No cystic or solid mass. Pancreatic duct: Normal caliber and configuration. Spleen: Normal size, no lesions. Adrenal glands: Normal. Kidneys: Punctate T2 hyperintensities in the bilateral kidneys are too small to characterize but most likely simple renal cysts. No hydronephrosis. Bowel and mesentery: Duodenal diverticulum. No obstruction. No inflammatory changes. Lymph nodes: No adenopathy. Osseous structures: No focal marrow signal abnormality. Procedure Note Brady Flores MD - 11/14/2022 EXAMINATION: MRI CHOLANGIOPANCREATOGRAPHY WWO CONTRAST CLINICAL HISTORY: right upper abdominal pain with elevated alk phosph andggt TECHNIQUE: MRCP performed prior to and following the intravenousadministration of 12 mL Dotarem. 3-D MIPS were created. COMPARISON: None FINDINGS: Liver: Normal size and signal intensity. No lesions. Bile ducts: Intrahepatic bile ducts are well visualized and normal incaliber. The common bile duct is normal caliber. No intraluminal filling defects. Gallbladder: Punctate filling defects throughout the lumen are likelysmall polyps. No definite gallstones. Dependent biliary sludge. Normal wall.No adjacent inflammation. Pancreas: No cystic or solid mass. Pancreatic duct: Normal caliber and configuration. Spleen: Normal size, no lesions. Adrenal glands: Normal. Kidneys: Punctate T2 hyperintensities in the bilateral kidneys are toosmall to characterize but most likely simple renal cysts. No hydronephrosis. Bowel and mesentery: Duodenal diverticulum. No obstruction. Noinflammatory changes. Lymph nodes: No adenopathy. Osseous structures: No focal marrow signal abnormality. IMPRESSION 1. No evidence of acute cholecystitis on MRCP. 2. Several punctate gallbladder polyps. No follow-up imaging is necessarybased on size. I have personally reviewed the image(s) and the resident's interpretationand agree with the findings, Brady Flores MD at 11/14/2022 3:56 PM Thank you for letting us participate in the care of this patient. If youare a health care provider and have any questions regarding this report,please contact the number below. For patients who have questions please contactthe health youth care professional that requested your imaging first. Electronically signed by: Brady Flores MD, [facility]([phone]), at 11/14/2022 3:56 PM Amaury JOEL IMAusten MRI ORDERABLES documented in this encounter Visit Diagnoses Diagnosis Abdominal pain, right upper quadrant documented in this encounter Administered Medications Inactive Administered Medications - up to 3 most recent administrations Medication Order MAR Action Action Date Dose Rate Site gadoterate meglumine (Dotarem) (0.5 mMol/mL) injection solution 0-100 mL 0-100 mL, Intravenous, ONCE PRN, 1 dose, Starting on Sat11/13/22 at 2000, Until Sat11/13/22 at 2000, Per Protocol, Radiology Contrast, Routine Given 11/13/2022 8:01 PM EDT 12 mLs documented in this encounter Care Teams Drapery Head Former Relationship Specialty Start Date End Date Amaury Ely PA [address] [place] [address] PCP - General Internal Medicine 10/26/22 documented as of this encounter
--- OUTSIDE RECORDS SUMMARY | 2024-01-31 18:03 | XMS_ITS | Encounter Summary ---
Author Organization [facility] Address [address] [place] [address] Care Team Providers Care Public Policy Mediator Name Role Phone Ava Leonard MD Primary Care Provider [phone] [phone] Reason for Referral * Radiology Services (Routine) - Closed Specialty Diagnoses / Procedures Referred By Contac t Referred To Contact Radiology Diagnoses Pulsatile tinnitus, right ear Procedures MR HEAD W WO CONTRAST MR HEAD WO CONTRAST Ava Leonard MD [address] [place] [phone] Referral ID Status Reason Start Date Expiration Date Visits Re quested Visits Authorized [id number] Closed 02/03/2019 1 1 Reason for Visit * Radiology Services (Routine) - Closed Specialty Diagnoses / Procedures Referred By Contac t Referred To Contact Radiology Diagnoses Pulsatile tinnitus, right ear Procedures MR HEAD W WO CONTRAST MR HEAD WO CONTRAST Ava Leonard MD [address] [address] Referral ID Status Reason Start Date Expiration Date Visits Re quested Visits Authorized [id number] Closed 02/03/2019 1 1 Encounter Details Date Type Department Care Team (Latest Contact Info) Description 03/16/2019 6:17 EST - 03/16/2019 8:23 EST Hospital Encounter [facility] [address] [place] [address] Pulsatile tinnitus, right ear Discharge Disposition: Home [...] Name Priority Date/Time Associated Diagnosis Comments MR HEAD W WO CONTRAST Routine 03/16/2019 7:45 EST Pulsatile tinnitus, right ear documented in this encounter Results * MR HEAD W WO CONTRAST (03/16/2019 7:45 EST) Anatomical Region Laterality Modality Head Magnetic [...] tinnitus, right ear documented in this encounter Administered Medications Inactive Administered Medications - up to 3 most recent administrations Medication Order MAR Action Action Date Dose Rate Site gadobutrol (GADAVIST PFS) solution solution 1-15 mmol 1-15 mmol (1-15 mL), intravenous, Once in imaging, 1 dose, Starting on Sat03/16/19 at 0746, Until Sat03/16/19 at 0746, Routine Given 03/16/2019 7:46 EST 5.9 mmol documented in this encounter Orders Medications Ordered That Zak ht Not Have Been Administered Count Last Ordered Date First Ordered Date gadobutrol (GADAVIST PFS) so lution solution 1-15 mmol 1 03/16/2019 documented in this encounter Care Teams Public Policy Mediator Relationship Specialty Start Date End Date Ava Leonard MD [address] [place] [address] PCP - General 04/19/14 documented as of this encounter
--- OUTSIDE RECORDS SUMMARY | 2024-01-31 18:03 | XMS_ITS | Encounter Summary ---
Author Organization [facility] Address [address] [place] [address] Care Team Providers Care Material Damage Appraiser Name Role Phone Ava Leonard MD Primary Care Provider [phone] [phone] Reason for Referral * Radiology Services (Routine) - Closed Specialty Diagnoses / Procedures Referred By Marc covington Referred To Contact Diagnoses Breast cancer screening Procedures MA BREAST SCREENING STEPHEN BILATERAL Ava Leonard MD [address] [place] [phone] Referral ID Status Reason Start Date Expiration Date Visits Re quested Visits Authorized [id number] Closed 06/26/2019 1 1 Reason for Visit * Radiology Services (Routine) - Closed Specialty Diagnoses / Procedures Referred By Marc covington Referred To Contact Diagnoses Breast cancer screening Procedures MA BREAST SCREENING STEPHEN BILATERAL Ava Leonard MD [address] [phone] Referral ID Status Reason Start Date Expiration Date Visits Re quested Visits Authorized [id number] Closed 06/26/2019 1 1 Encounter Details Date Type Department Care Team (Latest Contact Info) Description 07/11/2020 14:36 EDT - 07/11/2020 23:59 EDT Hospital Encounter [facility] [address] [place] [address] Breast cancer screening Discharge Disposition: Home or Self Care Social [...] 14:34 EDT documented as of this encounter Discharge Disposition Disposition Code Departure Means Destination Home or Self Care documented in this encounter Plan of Treatment Not on file documented as of this encounter Procedures Procedure Name Priority Date/Time Associated Diagnosis Comments MA BREAST SCREENING STEPHEN BILATERAL Routine 07/11/2020 15:04 EDT Breast cancer screening documented in this encounter Results * MA BREAST SCREENING SETPHEN BILATERAL (07/11/2020 15:04 EDT) Anatomical Region Laterality Modality Breast Bilateral Mammography 07/11/2020 16:2 1 EDT Impressions 07/11/2020 16:21 EDT Negative, no evidence of malignancy. RECOMMENDATION: Routine screening mammography is recommended. OVERALL ASSESSMENT: BI-RADS 1: Negative These results will be communicated to your patient via a lay letter from Radiology. If any additional imaging is needed we will contact your patient directly. Narrative 07/11/2020 16:21 EDT MA BREAST SCREENING STEPHEN BILATERAL ??07/11/2020 3:00 PM History: routine Comparison: ??Comparison has been made to previous images. Technique: Routine 3D tomosynthesis with synthesized 2D views with CAD Bilateral Breast Composition: There are scattered areas of fibroglandular density. Bilateral Breast Findings: ??No significant masses, calcifications or other abnormalities are seen. Procedure Note Michelle Taveras MD - 07/11/2020 MA BREAST SCREENING STEPHEN BILATERAL 07/11/2020 3:00 PM History: routine Comparison: Comparison has been made to previous [...] documented in this encounter Visit Diagnoses Diagnosis Breast cancer screening Breast screening, unspecified documented in this encounter Care Teams Material Damage Appraiser Relationship Specialty Start Date End Date Ava Leonard MD [address] [facility] [address] [place] [address] PCP - General 04/19/14 documented as of this encounter
--- OUTSIDE RECORDS SUMMARY | 2024-01-31 18:03 | XMS_ITS | Encounter Summary ---
Author Organization [facility] Address [address] [place] [address] Care Team Providers Care Manufacturing Applications Engineer Name Role Phone Ava Leonard MD Primary Care Provider [phone] Reason for Referral * Radiology Services (Routine) - Closed Specialty Diagnoses / Procedures Referred By Marc covington Referred To Contact Diagnoses Abnormal levels of other serum enzymes Procedures US ABDOMEN LIMITED Ava Leonard MD [address] [place] [phone] Referral ID Status Reason Start Date Expiration Date Visits Re quested Visits Authorized [id number] Closed 03/08/2019 1 1 Reason for Visit * Radiology Services (Routine) - Closed Specialty Diagnoses / Procedures Referred By Marc covington Referred To Contact Diagnoses Abnormal levels of other serum enzymes Procedures US ABDOMEN LIMITED Ava Leonard MD [address] [place] [phone] Referral ID Status Reason Start Date Expiration Date Visits Re quested Visits Authorized [id number] Closed 03/08/2019 1 1 Encounter Details Date Type Department Care Team (Latest Contact Info) Description 03/16/2019 8:24 EST - 03/16/2019 23:59 EST Hospital Encounter [facility] Radiology [address] [address] Abnormal levels of other serum enzymes Discharge Disposition: Home or Self Care Social [...] Associated Diagnosis Comments US ABDOMEN LIMITED Routine 03/16/2019 8:57 EST Abnormal levels of other serum enzymes documented in this encounter Results * US ABDOMEN LIMITED (03/16/2019 8:57 EST) Anatomical Region Laterality Modality Abdomen, Body Ultrasound 03/16/2019 10:2 1 EST Impressions 03/16/2019 10:21 EST 1. ??Multiple gallbladder polyps with the largest measuring up to 7 mm. Recommend follow-up ultrasound in one year to assess stability. 2. ??Cholelithiasis without sonographic evidence of acute cholecystitis. I have personally reviewed the images and the above interpretation and agree with the findings. Narrative 03/16/2019 10:21 EST US ABDOMEN LIMITED ??03/16/2019 8:33 AM SIGNS AND SYMPTOMS/COMMENTS: elevated liver enzymes COMPARISON: None. TECHNIQUE: Grayscale and Doppler ultrasound evaluation of the right upper quadrant of the abdomen was performed. FINDINGS: PANCREAS: The visualized portions have normal sonographic appearance. LIVER: The liver measures 15.0 cm in length, which is normal. The liver has a normal echotexture with no focal lesion identified. RIGHT KIDNEY: The right kidney measures 11.3 cm in length. No evidence of hydronephrosis, shadowing calculi, or mass. GALLBLADDER: The gallbladder wall measures 1.2 mm in thickness, which is normal. Multiple ??gallbladder polyps are identified, the largest measuring approximately 0.7 x 0.7 x 0.6 cm. A couple of small mobile gallstones are present. No gallbladder distention, pericholecystic fluid, or focal tenderness is identified. BILE DUCTS: The common bile duct measures 3.9 mm in diameter at the lucrecia hepatis, which is normal. No intrahepatic biliary ductal dilatation is identified. PROXIMAL ABDOMINAL AORTA / IVC: Unremarkable. Procedure Note Leena Renee MD - 03/16/2019 US ABDOMEN LIMITED 03/16/2019 8:33 AM SIGNS AND SYMPTOMS/COMMENTS: elevated liver enzymes COMPARISON: None. TECHNIQUE: Grayscale and Doppler ultrasound evaluation of the right upperquadrant of the abdomen was performed. FINDINGS: PANCREAS: The visualized portions have normal sonographic appearance. LIVER: The liver measures 15.0 cm in length, which is normal. The liverhas a normal echotexture with no focal lesion identified. RIGHT KIDNEY: The right kidney measures 11.3 cm in length. No evidence ofhydronephrosis, shadowing calculi, or mass. GALLBLADDER: The gallbladder wall measures 1.2 mm in thickness, which isnormal. Multiple gallbladder polyps are identified, the largest measuringapproximately 0.7 x 0.7 x 0.6 cm. A couple of small mobile gallstones arepresent. No gallbladder distention, pericholecystic fluid, or focaltenderness is identified. BILE DUCTS: The common bile duct measures 3.9 mm in diameter at the portahepatis, which is normal. No intrahepatic biliary ductal dilatation isidentified. PROXIMAL ABDOMINAL AORTA / IVC: Unremarkable. IMPRESSION 1. Multiple gallbladder polyps with the largest measuring up to 7 mm.Recommend follow-up ultrasound in one year to assess stability. 2. Cholelithiasis without sonographic evidence of acute cholecystitis. I have personally reviewed the images and the above interpretation andagree with the findings. Ava Leonard MD IMG US ORDERABLES documented in this encounter Visit Diagnoses Diagnosis Abnormal levels of other serum enzymes documented in this encounter Care Teams Manufacturing Applications Engineer Relationship Specialty Start Date End Date Ava Leonard MD [address] [place] [address] PCP - General 04/19/14 documented as of this encounter
--- OUTSIDE RECORDS SUMMARY | 2024-01-31 18:03 | XMS_ITS | Encounter Summary ---
Author Organization [facility] Address [address] [place] [address] Care Team Providers Care Surveyor Chain Helper Name Role Phone Ava Leonard MD Primary Care Provider [phone] [phone] Encounter Details Date Type Department Care Team (Late st Contact Info) Description 07/06/2016 Results Only Imaging [facility] [phone] Ava Leonard MD [address] [place] [address] [address] [place] [address] Social History Tobacco Use Types [...] MA 2D/3D BILATERAL STEPHEN ROUTINE SCREENING MAMMO 07/06/2016 10:17 EDT documented in this encounter Results * MA 2D/3D BILATERAL STEPHEN ROUTINE SCREENING MAMMO (07/06/2016 10:17 EDT) Anatomical Region Laterality Modality Other 07/06/2016 10:1 7 EDT 07/10/2016 17:14 EDT Narrative 07/10/2016 17:14 EDT Comparison has been made to previous images. Bilateral Breast Findings: (Routine 3D tomosynthesis with synthesized 2D views with CAD) The breasts are heterogeneously dense (51% - 75% fibroglandular). This may lower the sensitivity of mammography. No significant masses, calcifications or other abnormalities are seen. IMPRESSION: BILATERAL BREASTS: Negative, no evidence of malignancy. Normal interval follow-up is recommended in 12 months. OVERALL ASSESSMENT - CATEGORY 1 - NEGATIVE END OF IMPRESSION These results will be communicated to your patient via a lay letter from Radiology. If any additional imaging is needed we will contact your patient directly. Procedure Note Anson Flores MD - 07/10/2016 Comparison has been made to previous images. Bilateral Breast Findings: (Routine 3D tomosynthesis with synthesized 2D views with CAD) The breasts are heterogeneously dense (51% - 75% fibroglandular). This may lower the sensitivity of mammography. No significant masses, calcifications or other abnormalities [...] on filedocumented in this encounter Care Teams Surveyor Chain Helper Relationship Specialty Start Date End Date Ava Leonard MD [address] [place] [address] PCP - General 04/19/14 documented as of this encounter
--- OUTSIDE RECORDS SUMMARY | 2024-01-31 18:03 | XMS_ITS | Encounter Summary ---
Author Organization [facility] Address [address] [place] [address] Care Team Providers Care Barrel Tester And Drainer Name Role Phone Ava Leonard MD Primary Care Provider +1 [phone] Encounter Details Date Type Department Care Team (Late st Contact Info) Description 01/17/2021 Orders Only [facility] [address] [place] [address] Ilan Mcelroy, RN [address] [place] [address] Encounter for preprocedure screening laboratory testing for [...] Primary documented in this encounter Care Teams Barrel Tester And Drainer Relationship Specialty Start Date End Date Ava Leonard MD [address] [place] [address] PCP - General 04/19/14 documented as of this encounter
--- OUTSIDE RECORDS SUMMARY | 2024-01-31 18:03 | XMS_ITS | Encounter Summary ---
Author Organization [facility] Address [address] [place] [address] Care Team Providers Care Wood Panel Inspector Name Role Phone Ava Leonard MD Primary Care Provider +1 -[phone] Reason for Visit * Reason Onset Date Comments Medical Records 02/18/2023 Encounter Details Date Type Department Care Team (Late st Contact Info) Description 02/18/2023 Telephone [facility] ENT- [facility] [address] [place], [place] [id number] Urmila Gleason MD [address] [facility], [address] [place] [address] Medical Records Social History Tobacco Use Types Packs/Day Years [...] encounter Miscellaneous Notes * Telephone Encounter - Charlene Lee - 02/18/2023 1407 EST Patient called to discuss CT sinus complted outside [facility]. Patient stated her most recent imaging of sinus was at [facility], but could not recall the exact date. Explained to patient we will request those images and report on her behalf. Called radiology at [facility] and requested images and report. Pending receipt. documented in this encounter Plan of Treatment Not on file documented as of this encounter Visit Diagnoses Not on filedocumented in this encounter Care Teams Wood Panel Inspector Relationship Specialty Start Date End Date Ava Leonard MD [address] [place] [address] PCP - General 04/19/14 documented as of this encounter
--- OUTSIDE RECORDS SUMMARY | 2024-01-31 18:03 | XMS_ITS | Encounter Summary ---
Author Organization [facility] Address [address] [place] [address] Care Team Providers Care Tool And Die Machinist Name Role Phone Ava Leonard MD Primary Care Provider [phone] [phone] Reason for Visit * Reason Onset Date Comments COVID-19 01/17/2021 Encounter Details Date Type Department Care Team (Late st Contact Info) Description 01/17/2021 Telephone [facility] [address] [place] [address] Kamron Prakash MD [address] [facility], [address] [place] [phone] COVID-19 Social History Tobacco Use Types Packs/Day Years [...] encounter Miscellaneous Notes * Telephone Encounter - Teresa Quiroz - 01/17/2021 1339 EDT Patient advised they would like covid testing done at [facility]. News Production Assistant faxed the order to [phone] and asked that they schedule the patient for testing on 01/30. Also made patient aware of testing date. News Production Assistant will also remove patient from the work queue. documented in this encounter Plan of Treatment Not on file documented as of this encounter Visit Diagnoses Not on filedocumented in this encounter Care Teams Tool And Die Machinist Relationship Specialty Start Date End Date Ava Leonard MD [address] [place] [address] PCP - General 04/19/14 documented as of this encounter
--- OUTSIDE RECORDS SUMMARY | 2024-01-31 18:03 | XMS_ITS | Encounter Summary ---
Author Organization [facility] Address [address] [place] [address] Care Team Providers Care Brokerage Clerk Name Role Phone Ava Leonard MD Primary Care Provider [phone] [phone] Encounter Details Date Type Department Care Team (Late st Contact Info) Description 09/20/2023 Lab Requisition [facility] Pathology & Laboratory Medicine - [facility] [address] [place] [address] Severiano Atwood MD [address] [place] [address], [address] [place], [place] [id number] Encounter for screening for malignant neoplasm of colon Social History Tobacco Use Types Packs/Day Years [...] Procedure Name Priority Date/Time Associated Diagnosis Comments SURGICAL PATHOLOGY Today 09/20/2023 9:28 EDT Encounter for screening for malignant neoplasm of colon documented in this encounter Results * SURGICAL PATHOLOGY (09/20/2023 9:28 EDT) Note to Patient The following pathology results have been interpreted by your pathologist and may be available to you before your health provider has had the opportunity to review them. Please allow time for your provider to receive these results and explore management options, if applicable. 09/23/2023 14:34 EDT [facility] Final Diagnosis A. COLON, AT 35 CM, POLYP, BIOPSY: - Tubular adenoma. 09/23/2023 14:34 T [facility] Attestation By the signature below, the attending physician certifies that they have 1) personally conducted a gross and/or microscopic examination of the described specimen(s), and/or personally interpreted the results of laboratory testing of the described specimen(s), and 2) personally rendered or confirmed the above diagnosis. 09/23/2023 14:34 [facility] at 1434 Clinical History Screening colo 09/23/2023 14:34 [facility] Gross Description A. Received in formalin labelled with proper patient identification (initials M, J) and polyp @ 35 cm is an aggregate of boothe tissues (0.7 x 0.6 x 0.1 cm). Entirely submitted in A1. Ava Horton 09/21/2023 11:53 09/23/2023 14:34 EDT [facility] Performing Lab [facility] 09/23/2023 14:34 T [facility] Scanned Images 09/23/2023 14:34 [facility] Tissue COLON STRUCTURE / Unknown 09/20/2023 9:28 EDT 09/20/2023 19:58 EDT Severiano Atwood MD PATHOLOGY ORDERABLES [facility] [address] [place] [address] documented in this encounter Visit Diagnoses Diagnosis Encounter for screening for malignant neoplasm of colon Special screening for malignant neoplasms, colon documented in this encounter Care Teams Brokerage Clerk Relationship Specialty Start Date End Date Ava Leonard MD [address] [facility] [address] [place] [address] PCP - General 04/19/14 documented as of this encounter
--- OUTSIDE RECORDS SUMMARY | 2024-01-31 18:03 | XMS_ITS | Encounter Summary ---
Author Organization [facility] Address [address] [place] [address] Care Team Providers Care Top Collar Baster Name Role Phone Ava Leonard MD Primary Care Provider [phone] [phone] Encounter Details Date Type Department Care Team (Late st Contact Info) Description 10/13/2022 Lab Requisition [facility] Pathology & Laboratory Medicine - [facility] [address] [place] [address] Outr Resulting Lab, Provider Social History Tobacco [...] Procedure Name Priority Date/Time Associated Diagnosis Comments RHEUMATOID FACTOR Routine 10/12/2022 11: 10 EDT ANTI NUCLEAR AB (JACKIE), IFA Routine 10/12/2022 11:10 EDT documented in this encounter Results * RHEUMATOID FACTOR (10/12/2022 11:10 EDT) Rheumatoid Factor <8.6 <12.0 IU/mL 10/13/2022 22:09 EDT [facility] Blood VENOUS BLOOD / Unknown 10/12/2022 11:10 EDT 10/13/2022 21:47 EDT Provider Outr Resulting Lab CHEMISTRY & BLOOD GAS ORDERABLES Performing Organization Address [facility] Co de Phone Number [facility] [address] [place] [address] * ANTI NUCLEAR AB (JACKIE), IFA (10/12/2022 11:10 EDT) Pathologist [facility] JACKIE Interpretation Negative Negative 2022 14:37 EDT [facility] Comment:No titer performed, JACKIE Screen is negative. Blood VENOUS BLOOD / Unknown 10/12/2022 11:10 EDT 10/13/2022 21:47 EDT Narrative [facility] - 10/15/2022 14:37 EDT Results were obtained with the INOVA NOVA Lite HEp-2 JACKIE Kit by indirect immunofluorescence. Provider Outr Resulting Lab IMMUNOLOGY A ND SEROLOGY ORDERABLES Performing Organization Address [facility] Co de Phone Number [facility] [address] [place] [address] documented in this encounter Visit Diagnoses Not on filedocumented in this encounter Care Teams Top Collar Baster Relationship Specialty Start Date End Date Ava Leonard MD [address] [place] [address] PCP - General 04/19/14 documented as of this encounter
--- OUTSIDE RECORDS SUMMARY | 2024-01-31 18:03 | XMS_ITS | Encounter Summary ---
Author Organization [facility] Address [address] [place] [address] Care Team Providers Care Freight Weigher Name Role Phone Ava Leonard MD Primary Care Provider [phone] [phone] Reason for Visit * Reason Onset Date Comments Appointment Related 02/26/2023 Encounter Details Date Type Department Care Team (Late st Contact Info) Description 02/26/2023 Telephone [facility] ENT- [facility] [address] [place], [place] [id number] Urmila Gleason MD [address] [facility], [address] [place] [address] Appointment Related Social History Tobacco [...] encounter Miscellaneous Notes * Telephone Encounter - Aditi Marion - 02/26/2023 0816 EST Left message for patient regarding appointment scheduled February 28. Manager Group advised Dr. Urmila Gleason will no longer be available and the appointment has been rescheduled to March 14 at 10:30 AM. Advised if new appointment does not work for the patient, please call the office and schedule next available. documented in this encounter Plan of Treatment Not on file documented as of this encounter Visit Diagnoses Not on filedocumented in this encounter Care Teams Freight Weigher Relationship Specialty Start Date End Date Ava Leonard MD [address] [place] [address] PCP - General 04/19/14 documented as of this encounter
--- OUTSIDE RECORDS SUMMARY | 2024-01-31 18:03 | XMS_ITS | Encounter Summary ---
Author Organization [facility] Address [address] [place] [address] Care Team Providers Care Auto Winder Name Role Phone Ava Leonard MD Primary Care Provider [phone] [phone] Reason for Visit * Reason Comments New Patient Visit Atypical facial pain * Referral (Routine) - Receiving Office to Obtain Authorization Specialty Diagnoses / Procedures [facility] Referred To Contact Otolaryngology Diagnoses Dysphonia Ava Leonard MD [address] [place] [address] [address] [place] [address] [facility] Ent [address] [place] [address] Referral ID Status Reason Start Date Expiration Date Visits Requested Visits Authorized [id number] Receiving Office to Obtain Authorization 1 1 Encounter Details Date Type Department Care Team (Late st Contact Info) Description 04/05/2023 9:00 EST Office Visit [facility] ENT- Main [address] [address] Urmila Gleason MD [address] [facility], [address] [place] [phone] Atypical facial pain (Primary Dx) Social History Tobacco Use Types [...] as of this encounter Progress Notes * Urmila Gleason MD - 04/05/2023 0900 EST Progress Note Division of Otolaryngology, Head and Neck Surgery Date of Service: 04/05/2023 Provider: Urmila Gleason MD CHIEF COMPLAINT: Chief Complaint Patient presents with New Patient Visit Atypical facial pain HISTORY OF PRESENT ILLNESS: Martha Solares is a 72 y.o. year old female who comes in today for evaluation of facial pain. She describes mid facial pain above her upper dental roots that began in the mid 90s. It has been worsening over the last several decades and is now present daily. She saw dentist in the mid 1999' when she was living in [facility] who stated that she had the longest dental roots he had ever seen and offered some type of procedure to alleviate this. She declined. She also saw an ENT in [facility] who ordered a CT scan last year to evaluate for deviated septum. She sustained a facial injury years ago to the right side of her face, prompting that imaging recommendation. The scan was normal with well ventilated sinuses, recommended oral appliance for TMJ. She utilizes without notable change. She subsequently saw a [facility] affiliated shuttle filler in [facility], skin testing not completed but medications recommended. She has a history of suicidal ideation with some prescription medicine so she carefully reviewed all of the medications recommended. She elected to pursue jpxi-[id number] antihistamines and 1 steroid nasal spray. She did not notice any change. In addition, she was evaluated by a brick dropper. Recommendations made but again, no change. Aggravating factors include exposure to cold air. Notes morning congestion/stuffiness with phlegm, particular on the right side of her nose. Department of Otolaryngology PHYSICAL EXAMINATION CONSTITUTIONAL: APPEARANCE: The patient appears alert, cooperative, and comfortable. ABILITY TO COMMUNICATE / VOICE: Normal HEAD AND FACE: EXTERNAL EAR & NOSE: No external ear or nose deformity noted NOSE & MOUTH: NOSE: see nasal endoscopy report LIPS, TEETH & GUMS: normal for age, dental wear of the lower incisors. Crepitus of TMJ bilaterally. ORAL CAVITY & OROPHARYNX: normal LYMPHATIC: CERVICAL LYMPH NODES: No pathologic cervical lymphadenopathy noted Procedure: Endoscopy Pre-procedure Dx: facia lpain Post-procedure Dx: same Indication: evaluation of symptoms of rhinitis/sinusitis unable to visualize on anterior rhinoscopy Anesthesia: Cophenylcaine Endoscopy type: Rigid Procedure: Informed consent was obtained. The patient was seated upright, and topical anesthetic was applied. After waiting for the anesthetic/vasoconstrictor effect, the scope was passed into both nostrils and the nasal cavities and nasopharynx were examined. The patient tolerated the procedure well, and left the office in stable condition. Complications: None Findings: Nose: The septum is deviated to the right (very mild). The inferior turbinates are normal in appearance. The middle turbinates are normal in appearance. The middle meatus is clear bilaterally. The SE recess is visualized and clear bilaterally. The superior meatus was not visualized due to patient anatomy Nasopharynx: Normal examination of the choanae, eustachian tube orifices, and posterior nasopharyngeal wall SNOT 22: 14 CT sinus completed 01/25/2023 is independently reviewed by me. The paranasal sinuses are well ventilated and clear bilaterally. ASSESMENT: No diagnosis found. Martha Solares is a 72-year-old female with a several decade history of facial pain along the superior margin of her upper dental roots, indeterminate etiology. Normal exam, endoscopy, and CT sinus. Her sinuses are not the source of her discomfort. It is possible that this reflects neurogenic pain from the dental roots, migraine variant, possiblemyofascial component. PLAN: There are no diagnoses linked to this encounter. 1. Recommended nasal saline lavage for mucociliary clearance and Breathe Right strips at night. 2. 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 Briefly discussed neuromodulator such as gabapentin for possible neurogenic pain. Thank you very much for the consultation. Please let me know if I can be of further assistance. Sincerely, Urmila Gleason MD documented in this encounter Plan of Treatment Not on file documented as of this encounter Visit Diagnoses Diagnosis Atypical facial pain- Primary Atypical face pain documented in this encounter Historical Medications * This list may reflect changes made after this encounter. Medication Sig Dispensed Refills Start Date End Date vitamin E acetate (VITAMIN E ORAL) Take by mouth. ergocalciferol, vitamin D2, (VITAMIN D ORAL) Take by mouth. B-complex with vitamin C (VITAMIN B COMPLEX-C ORAL) Take by mouth. added in this encounter Care Teams Auto Winder Relationship Specialty Start Date End Date Ava Leonard MD [address] [facility] [address] [address] [place] [address] PCP - General 04/19/14 documented as of this encounter
--- OUTSIDE RECORDS SUMMARY | 2024-01-31 18:03 | XMS_ITS | Encounter Summary ---
Author Organization [facility] Address [address] [place] [address] Care Team Providers Care Coordinating Producer Name Role Phone Ava Leonard MD Primary Care Provider [phone] [phone] Encounter Details Date Type Department Care Team (Late st Contact Info) Description 08/22/2018 10:51 EDT - 08/22/2018 10:52 EDT Hospital Encounter [address] [address] Carolina Campos MD [address] [place] [address] Discharge Disposition: Home or Self Care Social [...] as of this encounter Discharge Diagnoses Diagnosis A69.20 Lyme disease, unspecified-A69.20[ICD-10-CM] documented in this encounter Discharge Disposition Disposition Code Departure Means Destination Home or Self Care documented in this encounter Plan of Treatment Not on file documented as of this encounter Visit Diagnoses Not on filedocumented in this encounter Care Teams Coordinating Producer Relationship Specialty Start Date End Date Ava Leonard MD [address] [place] [address] PCP - General 04/19/14 documented as of this encounter
--- OUTSIDE RECORDS SUMMARY | 2024-01-31 18:03 | XMS_ITS | Encounter Summary ---
Author Organization [facility] Address [address] [place] [address] Care Team Providers Care Collar Shaper Operator Name Role Phone Ava Leonard MD Primary Care Provider [phone] [phone] Encounter Details Date Type Department Care Team (Late st Contact Info) Description 02/22/2022 Lab Requisition [facility] Pathology & Laboratory Medicine - [facility] [address] [place] [address] Outr Resulting Lab, Provider Social History Tobacco [...] Procedure Name Priority Date/Time Associated Diagnosis Comments ZZCOVID-19 TEST [facility] PCR Today 02/21/2022 12:20 EST COVID-19 TESTING Routine 02/21/2022 12:2 0 EST documented in this encounter Results * COVID-19 TEST [facility] PCR (02/21/2022 12:20 EST) Swab 02/21/2022 12:2 0 EST 02/22/2022 17:30 EST Provider Outr Resulting Lab MICROBIOLOGY - GENERAL ORDERABLES Performing Organization Address [facility] de Phone Number [facility] [address] [place] [address] * COVID-19 TESTING (02/21/2022 12:20 EST) COVID-19 rt-PCR Result Negative Negative 02/23/2022 12:[address] [facility] Comment: This test has not been FDA cleared or approved. This test has been authorized by FDA under an EUA for use by authorized laboratories. This test has been authorized only for detection of nucleic acid from 2019-nCoV, not for any other viruses or pathogens. This test is only authorized for the duration of the declaration that circumstances exist justifying the authorization of emergency use of in vitro diagnostic tests for detection and/or diagnosis of 2019-nCoV under section 564(b)(1) of Act, 21 U.S.C ?? 360bbb-3(b) (1), unless the authorization is terminated or revoked sooner. Negative results do not preclude 2019-nCoV infection and should not be used as the sole basis for treatment or other patient management decisions. Negative results must be combined with clinical observations, patient history, and epidemiological information. Testing was performed using the neena SARS-CoV-2 assay ([employer] on the Neena 6800 System Performing Lab Neena 6800 [facility] 02/23/2022 12:[address] [facility] Swab 02/21/2022 12:2 0 EST 02/22/2022 17:30 EST Provider Outr Resulting Lab MICROBIOLOGY - GENERAL ORDERABLES Performing Organization Address [facility] Co de Phone Number [facility] [address] [place] [address] documented in this encounter Visit Diagnoses Not on filedocumented in this encounter Care Teams Collar Shaper Operator Relationship Specialty Start Date End Date Ava Leonard MD [address] [place] [address] PCP - General 04/19/14 documented as of this encounter
--- OUTSIDE RECORDS SUMMARY | 2024-01-31 18:03 | XMS_ITS | Encounter Summary ---
Author Organization [facility] Address [address] [place] [address] Care Team Providers Care Baggage Porter Name Role Phone Jonathan Leonard MD Primary Care Provider [phone] [phone] Encounter Details Date Type Department Care Team (Late st Contact Info) Description 05/30/2015 Results Only [facility] [phone] Jonathan Leonard MD [address] [place] [address] [place] [phone] Social History Tobacco Use Types Packs/Day Years Used Date Smoking Tobacco: Never Assessed Sex and Gender Information Value Date Recorded Sex Assigned at Not on file Gender Identity Female 03/12/2019 11:22 EST Sexual Orientation Not on file documented as of this encounter Plan of Treatment Not on file documented as of this encounter Procedures Procedure Name Priority Date/Time Associated Diagnosis Comments PAP TEST- RESULT ONLY Routine 05/30/2015 0:00 EST documented in this encounter Results * PAP TEST- RESULT ONLY (05/30/2015 0:00 EST) Pathology Report: CYTOPATHOLOGY REPORT Reports generated via electronic interface contain original data; however they are lacking the format of the original report. Caution should be taken when reading/interpreti ng unformatted reports. Name: ? SARAH SOLARES ? Accession #: ? [id number] ? : ? 1950 (Age: 64) ??F ?Collect Date: ? 05/30/2015 ? Location: ? [facility] ? Receive Date: ? 05/31/2015 ? Provider: JONATHAN LEONARD MD Copy to: ? Final Report SPECIMEN ADEQUACY ? Satisfactory for Evaluation - transformation zone component present - obscuring contamination, possibly lubricant GENERAL CATEGORIZATION ? Negative for Intraepithelial Lesion or Malignancy ?? Last Menstrual Period: 2003 Hormonal/Contracep tive status: None Previous Gynecologic Pathology: Yes: abnormal pap Specimen/Source: ??Pap Test, Cervix/Endocervix, ThinPrep Imaging System with manual evaluation Document reviewed and electronically signed by: ? YANNA Salas(ASCP) ? Report ??Date: 06/03/2015 09:01 HPV with Pap Test ? Date Ordered: ? 06/03/2015 ? Status: ?? Signed Out ?Date Complete: ? 06/07/2015 ? By: ??System Interface ? Date Reported: ? 06/07/2015 ? Interpretation RESULT: Negative for HPV. No E6 or E7 mRNA is detected from HPV types 16,18,31,33,35, 39,45,51,52,56,58, 59,66, and 68 by us marketing director mediated amplification. Comments Document reviewed and electronically signed by: ? System Interface ? Report date: 06/07/2015 By the signature above, the attending physician certifies that he/she has personally conducted a gross and/or microscopic examination of the described specimens and rendered or confirmed the above diagnosis. End of Report [facility] 05/30/2015 05/31/2015 Jonathan Leonard MD PATHOLOGY ORDERAB LES [facility] [address] [place] [address] documented in this encounter Visit Diagnoses Not on filedocumented in this encounter Care Teams Baggage Porter Relationship Specialty Start Date End Date Jonathan Leonard MD [address] [place], [place] [address] [address] [place] [address] PCP - General 04/19/14 documented as of this encounter
--- OUTSIDE RECORDS SUMMARY | 2024-01-31 18:03 | XMS_ITS | Encounter Summary ---
Author Organization [facility] Address [address] [place] [address] Care Team Providers Care Middle School Librarian Name Role Phone Ava Leonard MD Primary Care Provider [phone] Encounter Details Date Type Department Care Team (Late st Contact Info) Description 06/11/2021 Plan of Care Documentation [facility] Speech & Language [address] [place] [address] Social History Tobacco Use Types Packs/Day Years [...] encounter Progress Notes * Sheryl Bose - 06/11/2021 0723 EDT Images from the original note were not included. Outpatient Rehab Plan of Care Assessment Speech-Language Pathology Initial Note Voice Evaluation and Treatment Name: Martha Solares [address]: [address] [place] [phone] (home) Date of : 1950 Primary Physician: Ava Leonard Referring Physician: Kamron Prakash* EXECUTIVE DIRECTOR CONTRACT SHOP Diagnosis: Dysphonia Medical Diagnosis: Muscle Tension Dysphonia Date of Onset: 10/14/20 Date of Referral: 10/14/20 Date of Service: 05/31/2021 Total Treatment Time: 1300, 90 minutes ( 70 min eval, 20 min treatment) Name of Provider: Adele Angela B.A., Copy Worker Clinician ; Sheryl Bose M.S., [facility]-EXECUTIVE DIRECTOR CONTRACT SHOP SUBJECTIVE: I'm excited to begin therapy. OBJECTIVE: was seen for a voice evaluation today. History of Voice Problem: Per Dr. Kamron Prakash's note dated 02/02/21: Martha Solares is seen today for hoarseness [...] is a second Soprano or even in alto. She sings at home with her grandchildren and during times of baptism. She does not have any difficulty breathing [...] years but quit over 40 years ago. ?? ENT Exam Results: Findings: Nasopharynx: Normal exam of choanae, eustachian tubes, and adenoids for age Oropharynx: Normal exam of tongue base, tonsils, and posterior pharynx Hypopharynx: Normal piriform sinuses noted, no pooling of secretions Supraglottis: Moderate supraglottic hyperfunction Posterior Commissure: Normal Right True Vocal Fold: Normal Left True Vocal Fold: Normal Vocal Fold Mobility: Normal bilaterally Subglottis is clear Medical History: Past Medical History: Diagnosis Date ??? Migraines Past Surgical History: Procedure Laterality Date ??? BREAST BIOPSY ??? BREAST FNA Patient reports that she had a thyroid surgery 33 years ago. She reports that the isthmus was cut between the two lobes and a polyp was removed. Allergies Allergen Reactions ??? Penicillins ? Wheat Medications: Patient reports that she does not have any prescribed medications. Patient Reported Outcome Measure: Voice Handicap Index : The voice handicap index (VHI-10) (Feliberto, 2009) is a patient reported measure assessing the impact of voice impairment on the patient's communication activities and participation. Total: 1 (A score of above 11 is considered abnormal.) Patient Interview: Ms. Solares reports that she first noticed changes in her voice four years ago. 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 Specifically, she reports that her voice gets progressively cracklyand she is unable to hit notes that were previously easily reached. Social/Emotional Background: Voice Demands: Ms. Solares describes moderate voice demands in her life. 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 She reports that she is a grandmother and has three young grandchildren that visit every Saturday. She reports that her voice becomes strained during these visits, as she often has to yell loudly to them. She also reports that she uses her voice to speak and sing during Shabbat dinner on Fridays with her daughter, her son-in-law, and her grandchildren. She also reports that she is social and regularly communicates with her partner, her friends and family in-person and over the phone. Daily Stress: Ms. Solares reports fairly low level of stress right now. She tries to keep [her] stress pretty minimal. She reports that she occasionally faces some stress related to family dynamics. Water Intake: Ms. Solares reports that, on average, she drinks 8 cups of water daily. Caffeine Consumption: Ms. Solares reports that she drinks caffeinated beverages rarely. Alcohol/Smoking: Ms. Solares reports that she does not smoke, and that she drinks an ounce of wineor less during the week. Reflux: Ms. Solares reports that she does not experience acid reflux. The Reflux Symptom Index (RSI) (Saniya et al., 2002) was utilized today, it is a validated instrument to quantify severity of reflux symptoms. RSI score: 3 (>10 is considered abnormal) Allergies/Asthma: Ms. Solares reports that she has seasonal allergies. She reports that barometric pressure changes cause sinus pressure and tooth pain. She does not have a diagnosis of asthma. Diet: Ms. Solares reports that she eats a healthy diet. Exercise: Ms. Solares reports that she tries to get 10,000 steps a day and that she jogs in warmer months. Sleep: Ms. Solares reports that she gets an adequate amount of sleep. VOICE PROFILE: Voice Quality: voice sounds strained, raspy, and rough. Resonance: Ms. Avina resonance is considered laryngeal tone focused. Rate: Ms. Avina speaking rate is considered normal. Acoustic Measures: Acoustic measurements were obtained using the [employer] Multi Dimensional Voice Program, with patient [address] [facility]. All normative data is based on the patient's age and gender. Results follow: Results Norm Pitch: Pitch is a perceptual correlate to fundamental frequency (Fo). Sustained phonation of /a/ 154 Hz Adult (female): 150-230 Hz Counting task (1-10) 145 Hz - Reading Task ([place]) 163 Hz 93-275.4 Hz Conversation 149 Hz 180-250 Hz Pitch range 123- 206 Hz 155-334 Hz Hoarseness: Hoarseness is a perceptual correlate to perturbation. Increased perturbation measures may be indicative of irregular or asymmetric adduction (closing) of the vocal folds. Jitter/Relative average perturbation (RAP): 1.8% Greater than 0.8% is considered abnormal Shimmer (Jomar) 4.1% Less than or equal to 3.81% is considered normal Voice Breaks: Voice breaks are a perceptual correlate to emqrk-cu-tntztdli ratio. Culhv-ye-xpyplhvz ratio (NtR) 0.16 Less than or equal to 0.19 is considered normal Breathiness: Breathiness is a perceptual correlate to voice turbulence index (VTI). Voice turbulence index (VTI) 0.04 Less than or equal to 0.06 is considered normal Multi-Dimensional Voice Program (MDVP): Image indicates norms for RAP, Jomar, NtH, & VTI in the green [place]. Patient???s measures are indicated in the red mazin overlay. See image below: Loudness: Loudness is a perceptual correlate to vocal intensity. Sustained Phonation of /a/ 62 dB 67-73 dB Reading Task 60 dB 67-73 dB Conversation 59 dB 67-73 dB Respiratory and Phonatory Efficiency: Maximum phonation time of sustained vowel (MPT) 20 seconds 60+ years: 10.0-15.4 sec Sustained production of /s/ 25 seconds 20-25 seconds indicates normal respiratory function Sustained production of /z/ 25 seconds s:z ratio 1.0 Greater than 1.4 is considered abnormal and indicates possible vocal fold etiology Norms Sources: David; Clinical Measurement of Speech & Voice (2000). Pausewang Silvana & Lan. (1997) Journal of Voice, 11(2) 178-186. Manual Laryngeal Exam: Digital palpation of 's laryngeal region revealed the presence of moderate extrinsic laryngeal muscle tension present at the suprahyoid muscles, infrahyoid muscles, sternocleidomastoid bilaterally and trapezius bilaterally. Treatment Short-term Goals: Goal #1: Patient will master upper body and laryngeal relaxation techniques and will independently maintain relaxed postures during connected speech and singing tasks with 90% accuracy without cues. 3: Provided instruction on laryngeal relaxation exercises and provided recommendations for daily completion. Martha was able to return demonstration with 100% accuracy with min cues. She benefited from cues to increase awareness of when her upper body tension increased during spontaneous conversation. She demonstrated emerging increase in her awareness of this. Goal #2: Patient will utilize forward resonance for increased vocal clarity during structured connected speech and singing tasks with 90% accuracy. 3: Began training on forward focus of resonance with instruction on semi- occluded vocal tract exercise - straw blowing with and without voice. Martha was able to demonstrate improvement in consistency of breath flow for maintenance of bubbles both with and without voice. With voice, she was able todo this with ~65% accuracy. Goal #3: Patient will demonstrate improved vocal hygiene by use of strategies to avoid voice overuse in the presence of background noise. 3: Provided suggestions of use of a meditation aguilera to get the attention of her grandchildren rather than her voice/yelling. Martha liked this suggestion and will pursue. PATIENT/FAMILY EDUCATION: Topic: Patient/Family education and training was completed today including the role of Speech-Language Pathology, results of today's exam/recommendations. Education was provided regarding vocal fold structure and function as well as the respiratory and phonatory systems. Education was also provided regarding the use of upper body and laryngeal relaxation exercises. Learner: Patient Method of Education: Verbal, Written and Demonstration Barriers to Learning/Education: None Patient: Was able to verbalize understanding of information and was able to return demonstration. Family: No family present. ASSESSMENT: is an 70 y.o. female with moderate speaking demands who has been experiencing voice problems for four years. She was diagnosed with muscle tension dysphonia by Dr. Kamron Prakash (ENT)on 02/02/21. An outpatient voice evaluation was completed today as per Dr. Prakash's request. Ms. Solares presents with moderate dysphonia characterized by a strained, raspy, and rough vocal quality. Causal or contributing factors appear to include muscle tension, suboptimal mechanics (reduced breath support and laryngeal focus of resonance), and moderate voice demands. Visi-Pitch measures confirm a moderate level of vibratory instability consistent with auditory perceptual findings. Respiratory measures suggest adequate breath support for sustained phonation that does not carry over into spontaneous speaking. Digital palpation of Ms. Solares's??throat confirms a moderate level of tension. Fortunately, at this point, Fannys dysphonia does not appear to be interfering with her meeting her communciation demands. Education was provided regarding??results of today's findings,??voice anatomy and physiology, vocal hygiene guidelines, and upper body and laryngeal relaxation exercises. Ms. Solares did??demonstrate comprehension. With intervention today, Ms. Solares demonstrated the ability to improve her voice quality via the use of upper body laryngeal relaxation exercises. She demonstrated emerging awareness of when her upper body tension increased. In addition, Ms. Solares demonstrated good ability to complete semi-occluded vocal tract exercises to promote improved breath flow and forward focus of resonance. This willbe built-upon in future sessions. Given her voice demands, in order to prevent further voice impairment and handicap, ongoing intervention is warranted. Given Martha's response to treatment today and her excitement and motivation to participate, the prognosis for improvement is considered excellent. Functional Communication Measures ([place] Speech- Language- Hearing Association, 2002). The Functional Communication Measures (FCM???s) are a series of 7 point rating scales, ranging fromleast functional (Level 1) to most functional (Level 7). They have been developed by ALEXEY to describe different aspects of patient???s functional communication and swallowing abilities over the course of EXECUTIVE DIRECTOR CONTRACT SHOP intervention. Voice Level 5: Voice occasionally sounds normal with self-monitoring, but there is some situationalvariation. Individual's ability to participate in vocational, avocational, and social activities requiring voice is rarely affected in low- vocal demand activities, but is occasionally affected in high-vocal demand activities. GOALS: Long-term Goals: Voice Level 7: Individual's ability to successfully and independently participate in vocational, avocational, and social activities requiring high- or low-vocal demands is not limited by voice. Self-monitoring is effectively used, but only occasionally needed. 1. Martha will utilize proper vocal mechanics in all speaking situations via self-monitoring. 2. Martha will participate in vocational and avocational pursuits without vocal limitations. Short-term Goals: Goal #1: Patient will master upper body and laryngeal relaxation techniques and will independently maintain relaxed postures during connected speech and singing tasks with 90% accuracy without cues. Goal #2: Patient will utilize forward resonance for increased vocal clarity during structured connected speech and singing tasks with 90% accuracy. Goal #3: Patient will demonstrate improved vocal hygiene by use of strategies to avoid voice overuse in the presence of background noise. PLAN: It is recommended that Ms. Solares participate in a period of skilled EXECUTIVE DIRECTOR CONTRACT SHOP intervention once a week for 5 weeks. Sessions will be 60 minutes in length. Thank you very much for this referral. Adele Angela B.A., Copy Worker Clinician 05/31/2021 8:44 EXECUTIVE DIRECTOR CONTRACT SHOP Copy Worker Clinician Clinical Instructor Statement: Regarding today's visit, I have personally interviewed, examined, and discussed the patient and their plan of care with YAHAIRA Rai Copy Worker Clinician. I was present for the patient's session to provide 100% supervision. I have reviewed the documentation and edited YAHAIRA Rai Copy Worker Clinician's note and concur with the interpretation and findings. Sheryl Bose M.S., [facility]-EXECUTIVE DIRECTOR CONTRACT SHOP 06/02/2021 12:52 Plan ATTENDING PHYSICIAN: Medicare certification needed. Your signature indicates you approve the therapy goals and plan of care outlined on this document dated 05/31/2021. Thank you! Attending Physician Signature Date YAHAIRA HARMON 06/11/2021 7:23 documented in this encounter Plan of Treatment Not on file documented as of this encounter Visit Diagnoses Not on filedocumented in this encounter Care Teams Middle School Librarian Relationship Specialty Start Date End Date Ava Leonard MD [address] [facility] [address] [place] [address] PCP - General 04/19/14 documented as of this encounter
--- OUTSIDE RECORDS SUMMARY | 2024-01-31 18:03 | XMS_ITS | Encounter Summary ---
Author Organization [facility] Address [address] [place] [address] Care Team Providers Care Distribution Clerk Name Role Phone Ava Leonard MD Primary Care Provider [phone] [phone] Encounter Details Date Type Department Care Team (Latest Contact Info) Description 06/13/2015 8:06 EDT - 06/13/2015 23:59 EDT Hospital Encounter [facility] [place] [address] [place] [address] Ava Leonard MD [address] [place] [address] [address] [place] [phone] Discharge Disposition: Auto Discharge Social [...] on filedocumented in this encounter Care Teams Distribution Clerk Relationship Specialty Start Date End Date Ava Leonard MD [address] [place] [address] PCP - General 04/19/14 documented as of this encounter
--- OUTSIDE RECORDS SUMMARY | 2024-01-31 18:03 | XMS_ITS | Encounter Summary ---
Author Organization [facility] Address [address] [place] [address] Care Team Providers Care Data Capture Specialist Name Role Phone Ava Leonard MD Primary Care Provider [phone] [phone] Reason for Referral * (Routine/Next Available) - Receiving Office to Obtain Authorization Specialty Diagnoses / Procedures Referred By Contac t Referred To Contact Procedures CT OUTSIDE IMAGES HEAD Imaging, External Referral ID Status Reason Start Date Expiration Date Visits Requested Visits Authorized [id number] Receiving Office to Obtain Authorization 3 1 1 Reason for Visit * (Routine/Next Available) - Receiving Office to Obtain Authorization Specialty Diagnoses / Procedures Referred By Contac t Referred To Contact Procedures CT OUTSIDE IMAGES HEAD Imaging, External Referral ID Status Reason Start Date Expiration Date Visits Requested Visits Authorized [id number] Receiving Office to Obtain Authorization 3 1 1 Encounter Details Date Type Department Care Team (Latest Contact Info) Description 01/25/2023 - 01/25/2023 23:59 EDT Hospital Encounter [facility] [place] Discharge Disposition: Home or Self Care Social [...] Procedure Name Priority Date/Time Associated Diagnosis Comments CT OUTSIDE IMAGES HEAD Routine 01/25/2023 14:54 EDT documented in this encounter Results * CT OUTSIDE IMAGES HEAD (01/25/2023 14:54 EDT) Narrative 02/18/2023 14:54 EST This is a non-reportable exam. External Imaging IMG OTHER IMAGING OR DERABLES documented in this encounter Visit Diagnoses Not on filedocumented in this encounter Care Teams Data Capture Specialist Relationship Specialty Start Date End Date Ava Leonard MD [address] [place] [address] PCP - General 04/19/14 documented as of this encounter
--- OUTSIDE RECORDS SUMMARY | 2024-01-31 18:03 | XMS_ITS | Encounter Summary ---
Author Organization [facility] Address [address] [place] [address] Care Team Providers Care Shop Girl Name Role Phone Ava Leonard MD Primary Care Provider [phone] [phone] Encounter Details Date Type Department Care Team (Latest Contact Info) Description 07/14/2018 7:09 EDT - 07/14/2018 23:59 EDT Hospital Encounter [facility] [place] [address] [place] [address] Ava Leonard MD [address] [place] [address] [address] [place] [address] Discharge Disposition: Auto Discharge Social [...] on filedocumented in this encounter Care Teams Shop Girl Relationship Specialty Start Date End Date Ava Leonard MD [address] [place] [address] PCP - General 04/19/14 documented as of this encounter
--- OUTSIDE RECORDS SUMMARY | 2024-01-31 18:04 | XMS_ITS | Encounter Summary ---
Author Organization [facility] Address [address] [place] [address] Care Team Providers Care Building Estimator Name Role Phone Ava Leonard MD Primary Care Provider [phone] [phone] Encounter Details Date Type Department Care Team (Late st Contact Info) Description 04/19/2014 Results Only Imaging [facility] [phone] Ava Leonard MD [address] [place] [address] [address] [place] [address] Social History Tobacco Use Types [...] MA 2D/3D BILATERAL STEPHEN ROUTINE SCREENING MAMMO 05/12/2014 8:14 EST documented in this encounter Results * BILATERAL ROUTINE 2D/3D STEPHEN SCREENING (05/12/2014 8:14 EST) Anatomical Region Laterality Modality Other 05/12/2014 8:14 EST 05/12/2014 16:03 EST Narrative 05/12/2014 16:03 EST Comparison is made to outside images from 05/25/2013 (bilateral) and outside images from 05/23/2012 (bilateral) and outside images from 04/05/2011 (bilateral) and outside images from 03/20/2010 (bilateral). Bilateral Breast Findings: (Routine digital views with [...] will contact your patient directly. Procedure Note Michelle Taveras MD - 05/12/2014 Comparison is made to outside images from 05/25/2013 (bilateral) and outside images from 05/23/2012 (bilateral) and outside images from 04/05/2011 (bilateral) and outside images from 03/20/2010 (bilateral). Bilateral Breast Findings: (Routine digital views with [...] on filedocumented in this encounter Care Teams Building Estimator Relationship Specialty Start Date End Date Ava Leonard MD [address] [place] [address] PCP - General 04/19/14 documented as of this encounter
--- OUTSIDE RECORDS SUMMARY | 2024-01-31 18:04 | XMS_ITS | Encounter Summary ---
Author Organization [facility] Address [address] [place] [address] Care Team Providers Care Starch Crab Name Role Phone Ava Leonard MD Primary Care Provider [phone] [phone] Encounter Details Date Type Department Care Team (Latest Contact Info) Description 05/12/2014 6:53 EST - 05/12/2014 23:59 EST Hospital Encounter [facility] - [address] [address] Ava Leonard MD [address] [place] [address] [address] [place] [id number] Discharge Disposition: Auto Discharge Social History Tobacco Use Types Packs/Day Years Used Date Smoking Tobacco: Never Assessed Sex and Gender Information Value Date Recorded Sex Assigned at Not on file Gender Identity Female 03/12/2019 11:22 EST Sexual Orientation Not on file documented as of this encounter Discharge Diagnoses Diagnosis V76.12 OTHER SCREENING MAMMOGRAM FOR MALIGNANT NEOPLASM OF BREAST[ICD-9-CM] documented in this encounter Discharge Disposition Disposition Code Departure Means Destination Auto Discharge Home documented in this encounter Plan of Treatment Not on file documented as of this encounter Visit Diagnoses Not on filedocumented in this encounter Care Teams Starch Crab Relationship Specialty Start Date End Date Ava Leonard MD [address] [place], [place] [address] PCP - General 04/19/14 documented as of this encounter
--- OUTSIDE RECORDS SUMMARY | 2024-01-31 18:04 | XMS_ITS | Encounter Summary ---
Author Organization [facility] Address [address] [place] [address] Care Team Providers Care Soldering Technician Name Role Phone Ava Leonard MD Primary Care Provider [phone] [phone] Encounter Details Date Type Department Care Team (Late st Contact Info) Description 05/07/2014 Results Only Imaging [facility] [address] [place] [address] Michelle Taveras MD [address] [facility] [address] [place] [address] Social History Tobacco Use Types Packs/Day Years Used Date Smoking Tobacco: Never Assessed Sex and Gender Information Value Date Recorded Sex Assigned at Not on file Gender Identity Female 03/12/2019 11:22 EST Sexual Orientation Not on file documented as of this encounter Plan of Treatment Pending Results Name Type Priority Associated Diagnoses Date /Time OUTSIDE CD - MAMMO BREAST Imaging 03/20/2010 6:48 EST OUTSIDE CD - MAMMO BREAST Imaging 04/05/2011 6:48 EST OUTSIDE CD - MAMMO BREAST Imaging 05/23/2012 6:48 EST OUTSIDE CD - MAMMO BREAST Imaging 05/25/2013 6:48 EST documented as of this encounter Visit Diagnoses Not on filedocumented in this encounter Care Teams Soldering Technician Relationship Specialty Start Date End Date Ava Leonard MD [address] [place] [address] PCP - General 04/19/14 documented as of this encounter
== END 2024-01-31 18:02 | disposition home or self-care (01) ==
LOC: LBN 18:01
PROVIDERS: PCP Physician Assistant; Visit Provider Physician Assistant Medical
DX: R50.9 Fever, unspecified (principal); R82.89 Other abnormal findings on cytological and histological examination of urine
CPT/HCPCS: 87635; 81015; 87086

== ENCOUNTER 2024-02-28 06:23 | Day surgery (SDC) | payer MEDICARE, SELFPAY ==
[2024-02-28 06:20] VITALS: BP 138/87; PULSE 75; RESP 18; TEMP 36.5; O2SAT 100
[2024-02-28] MEDS: Tropicam./Phenyleph. (1/2.5%) 5 ML BTL OD ×3 (06:32→06:45)
--- NOTE | 2024-02-28 07:16 | W.ANESPRE ---
General Info Date of Service Date Performed: 02/28/24 Height: 5 ft 2 in Weight: 65.3 kg Body Mass Index (BMI): 26.3 Surgical Procedure: Operation Date: 02/28/24 07:40 Proposed Procedure Side Surgeon p Cataract Extraction with IOL Implant Right Jese Montenegro MD Meds Allergies and Home Medications Allergies Allergy/AdvReac Type Severity Reaction Status Date / Time alendronate sodium (From Allergy Unknown Other (See Verified 02/28/24 06:39 Fosamax) Comment) ciprofloxacin (From Cipro) Allergy Unknown Other (See Verified 02/28/24 06:39 Comment) levothyroxine sodium (From Allergy Unknown Other (See Verified 02/28/24 06:39 Synthroid) Comment) Penicillins Allergy Unknown Other (See Verified 02/28/24 06:39 Comment) Sulfa (Sulfonamide Allergy Unknown Other (See Verified 02/28/24 06:39 Antibiotics) Comment) azithromycin AdvReac Unknown Other (See Verified 02/28/24 06:39 Comment) Home Medication ?Medication ?Instructions ?Recorded ascorbic acid (vitamin C) 1,000 mg 1 g PO Q6H 12/07/21 capsule calcium carbonate (Calcium 600) 600 mg PO DAILY 12/07/21 cholecalciferol (vitamin D3) 50 50 mcg PO DAILY 12/07/21 mcg (2,000 unit) capsule omega-3 fatty acids 1,000 mg 1,000 mg PO DAILY 12/07/21 capsule vitamin B complex 1 cap PO DAILY 12/07/21 magnesium oxide 400 mg PO DAILY 01/02/24 Current Visit Medications: Current Medications Generic Name Dose Route Start Last Admin Trade Name Freq PRN Reason Stop Dose Admin Acetaminophen 1,000 mg 02/28/24 06:00 Acetaminophen 500 Mg Tab PO 03/29/24 05:59 Q4H PRN PRN Balanced Salt Solution 500 ml 02/28/24 06:00 Balanced Salt Soln.-Plus 500 Ml Bag OP 03/29/24 05:59 DIRECTED ENRIKE Miscellaneous Medication 0 ml 02/28/24 06:00 Prednisolone 1%, Moxifloxacin 0.5%, Bromfenac 0.09% 5.6ml Btl OD 03/29/24 05:59 DIRECTED ENRIKE Miscellaneous Medication 0 ml 02/28/24 06:00 02/28/24 06:45 Tropicam./Phenyleph. (1/2.5%) 5 Ml Btl OD 03/29/24 05:59 1 drp DIRECTED ENRIKE Administration Tetracaine HCl 0 ml 02/28/24 06:00 Tetracaine 0.5% 4 Ml Btl OD 03/29/24 05:59 DIRECTED ENRIKE PFSH Active Problems Active Problems: Problem Status Onset Code Cortical age-related cataract, right eye Acute H25.011 Nuclear age-related cataract, right eye Acute H25.11 Encounter for screening colonoscopy Acute Z12.11 Dysgeusia Acute R43.2 Facial lesion Acute L98.9 Seborrheic keratosis Acute L82.1 Acute cystitis with hematuria Acute N30.01 Dysuria Acute R30.0 Deviated nasal septum Acute J34.2 Facial pain Acute R51.9 Medical History Medical History Trigeminal neuralgia Tubular adenoma (~08/2023) Right upper quadrant abdominal pain of unknown etiology Senile osteoporosis Senile hyperkeratosis Urethral polyp Migraine headache Allergic rhinitis due to pollen Vitamin D deficiency Age related osteoporosis Tinnitus Gallbladder polyp Hoarseness Chronic sinusitis Surgical History Surgical History History of colonoscopy (~08/2023) Hx of cervical polypectomy H/O partial thyroidectomy Hx of cataract surgery Tobacco Smoking/Tobacco Use Status: Former Tobacco Use Alcohol Alcohol Intake: current Alcohol intake frequency: holidays/special occasions only Alcohol type: wine Substance Use Substance use: Never Substance use type: does not use Vital Signs and Lab Results Vital Signs Most Recent Vital Signs in EMR: Most Recent Vital Signs Temp Pulse Resp BP Pulse Ox 36.5 C 75 18 138/87 100 02/28/24 06:20 02/28/24 06:20 02/28/24 06:20 02/28/24 06:20 02/28/24 06:20 Lab Results Blood Type / Crossmatch: No Data to Display Complete Blood Count: No Data to Display Complete Metabolic Panel: No Data to Display Liver Function Panel: No Data to Display Coagulation Panel: No Data to Display Cardiac Panel: No Data to Display Arterial Blood Gas: No Data to Display Venous Blood Gas: No Data to Display Pancreas Panel: No Data to Display Thyroid Panel: No Data to Display Infectious Disease: Coronavirus (COVID-19)(PCR) Negative (Negative) 01/31/24 12:15 Coronavirus 2019 Source Nasal/Nares 01/31/24 12:15 Blood Cultures: No Data to Display Toxicology Panel: No Data to Display Imaging and Studies Imaging and Studies Study information below may be from another EMR and interpreted by another provider. Please see original notes in EMR for more complete details. EKG Summary: Conclusion Sinus rhythm...normal P axis, V-rate 50- 99 Probable left atrial enlargement...P >50mS, <-0.10mV V1 Otherwise normal ECG 08/28/22 Anesthesia Assessment and Plan Anesthesia History Personal History: No History of Anesthesia Complications Family History: No Family History of Anesthesia Complications Exercise Tolerance Exercise Tolerance: Metabolic Equivalents>4 Pertinent Negatives Pertinent Negatives: No Symptoms of GERD, No Major Cardiovascular Symptoms or Complaints and No Major Pulmonary Symptoms or Complaints Cardiac & Pulmonary Exam Cardiac Exam: Normal S1/S2 Heart Sounds Pulmonary Exam: Clear Bilateral Breath Sounds Implantable Cardiac Device Does patient have a Pacemaker or an ICD?: No Airway Exam Known Difficult Airway: No Mallampati Class: 2 Mouth Opening: Narrow (< 3cm) Thyromental Distance: Greater than 3 cm Neck Range of Motion: Full ROM Neck Circumference: Normal Teeth Condition: Normal Dentition ASA Classification ASA Score: ASA 2 Emergency Case?: No NPO Status NPO Status: NPO Clears >2 hours, Solids >8 hours Anesthesia Plan Resuscitation Status: Full Code Anesthesia Technique: MAC Anesthesia Airway Planned: Natural Airway Monitors Used: Standard Monitors
[2024-02-28 07:17] VITALS: BMI 26.3
[2024-02-28] MEDS: Tetracaine 0.5% 4 ML BTL OD (07:34)
[2024-02-28] MEDS: Povidone-Iodine Ophth 30 ML BTL (07:35)
[2024-02-28] MEDS: Lidocaine 1% Pres-Free 5 ML VIAL (07:45)
[2024-02-28] MEDS: Balanced Salt Soln.-PLUS 500 ML BAG OP (07:45)
[2024-02-28] MEDS: Duovisc Viscoelastic System EACH 1 EACH (07:46)
[2024-02-28] MEDS: Prednisolone 1%, Moxifloxacin 0.5%, Bromfenac 0.09% 5.6ML BTL OD (07:58)
--- NOTE | 2024-02-28 08:04 | W.PM.DSUDISC ---
Date of service: 02/28/24 Discharge Plan Disposition Patient Disposition: Home Discharge Details Attending Provider: Jese Montenegro Primary Care Provider: Amaury Ely Home Meds and New Rx's Prescriptions: No Action magnesium oxide 400 mg magnesium capsule 400 mg PO DAILY cholecalciferol (vitamin D3) 50 mcg (2,000 unit) capsule 50 mcg PO DAILY calcium carbonate [Calcium 600] 600 mg calcium (1,500 mg) tablet 600 mg PO DAILY omega-3 fatty acids 1,000 mg capsule 1,000 mg PO DAILY ascorbic acid (vitamin C) 1,000 mg capsule 1 g PO Q6H vitamin B complex Capsule 1 cap PO DAILY Discharge Instructions Stand Alone Forms: DSU Post-Op CataractWil (DSU) Discharge Orders Discharge Orders: Discharge Order (Routine); Ordered 02/28/24 Ordered By: Jese Montenegro DS: Diagnosis Discharge Diagnosis (1) Cortical age-related cataract, right eye: Status: Resolved (2) Nuclear age-related cataract, right eye: Status: Resolved
--- NOTE | 2024-02-28 08:04 | W.PM.OP ---
Operative Note Operative Note PRE-OP DIAGNOSIS: Nuclear/cortical/posterior subcapsular cataract, right eye POST-OP DIAGNOSIS: same PROCEDURE: Cataract extraction using phacoemulsification with intraocular lens implant, right eye SURGEON: Jese Montenegro ANESTHESIA TYPE: Local By Surgeon and MAC Refer to Anesthesia Record ESTIMATED BLOOD LOSS: 0 PATHOLOGY: none sent COMPLICATIONS: None Patient was transported to: same day Patient's condition: stable Implants: Breezy Clare[place] [id number] Indications: Progressive decreased vision due to cataract, right eye Procedure Description: CATARACT SURGERY OPERATIVE REPORT PREOPERATIVE DIAGNOSIS: Nuclear/cortical cataract, right eye POSTOPERATIVE DIAGNOSIS: Same OPERATION: Cataract extraction using phacoemulsification with posterior chamber intraocular lens implant, right eye. IOL: IOL Technical Services Manager/Model: Breezy Clareon [id number] IOL Power: + 18.0 diopters IOL Serial Number: [id number] Optic Diameter: 6.0mm Haptic/Overall Diameter: 13.0mm PHACO INFO: Breezy Agility Design Solutionsurion Vision System with OZil and Active Fluidics Cumulative Dispersed Energy (CDE): 5.44 seconds SURGEON: Jese Montenegro MD, JOSHUA ANESTHESIA: Monitored Anesthesia Care (MAC), with local sub-tenon's anesthetic infiltration COMPLICATIONS: None SPECIMENS: None INDICATIONS FOR PROCEDURE: The patient is a 73-year-old lady who previously underwent cataract surgery in the left eye elsewhere, who has now developed a symptomatic nuclear/cortical cataract in the right eye. She is significantly symptomatic that she desires cataract surgery and attempt to improve and maximize her vision. The option of cataract surgery was offered to the patient and she wished to proceed. See office notes for detailed information. PROCEDURE: The correct surgical eye was identified and marked as the right eye and the pupil was dilated in the preoperative area using mydriatics and cycloplegics. The dilated pupil size was 6.0 mm. The patient elected to proceed without oral sedation. The patient was brought to the operating room where cardiopulmonary monitoring was instituted and surgical time-out was performed, confirming the correct operative eye and IOL power. The patient decided she was a bit too anxious to proceed without sedation, so IV access was obtained and Versed 2 mg IV was given in the room. Topical anesthesia was administered and ophthalmic povidone-iodine 5% was instilled into the conjunctival fornices. The cipriano-ocular area was prepped with Betadine 10% solution and draped in the usual sterile fashion for intraocular surgery, including an aperture drape. A Tegaderm transparent film dressing was cut in half and used to cover the lashes and lid margins. Care was taken to sequester the lashes and lid margins under the Tegaderm dressing. A lid speculum was placed between the lids of the operative eye and the Breezy LuxOR Revalia operating microscope was maneuvered into position. Yvonne scissors were then used to make a conjunctival buttonhole approximately 6mm posterior to the limbus in the inferonasal quadrant. Blunt dissection was carried out to expose bare sclera, and a blunt-tipped sub-tenon?s anesthesia cannula was introduced and passed posteriorly along the globe where non-preserved plain lidocaine was injected into posterior sub-Tenon?s space. A sideport knife was used to make a paracentesis port. Intraocular phenylephrine/lidocaine was injected into the anterior chamber. The anterior chamber was then filled with viscoelastic. A keratome knife was used to construct a two--plane clear corneal tunnel extending 2.0mm into clear cornea. A flap was raised on the anterior capsule and capsulorhexis forceps were used to complete a continuous curvilinear capsulorhexis of 5.5 mm. Balanced salt solution was then used to perform cortical cleaving hydrodissection and nuclear hydrodelineation until the lens could be freely rotated within the capsular bag. The lens nucleus was then disassembled and removed within the capsular bag and iris plane using phacoemulsification. Residual cortical material was removed using the I/A handpiece. The posterior capsule was carefully polished to remove as much residual lens epithelial cells as safely possible. The capsular bag was then inflated and the anterior chamber deepened with cohesive viscoelastic. The lens implant described above was inserted into the capsular bag using the Breezy Autonome Injector. A Kuglen hook was used to dial the IOL into position. Residual viscoelastic was then removed first from posterior to the IOL, then from the anterior chamber using the I/A handpiece. The lens implant was noted to center nicely within the capsular bag. The incisions were stromally hydrated, and the anterior chamber was reformed using BSS. Then 0.5cc of moxifloxacin 1.0mg/ml were injected into the capsular bag and anterior chamber. The incisions were checked with a Weck spear and found to be secure. Several drops of ophthalmic povidone-iodine 5% were then applied to the eye followed by two drops of combination steroid/NSAID/antibiotic solution. The drapes were removed and a clear plastic protective eye shield was placed over the eye. The patient was then returned to Same Day Surgery in stable condition. Date of Procedure: 02/28/24
[2024-02-28 08:09] VITALS: BP 137/81; PULSE 67; RESP 18; TEMP 36.4; O2SAT 98
--- NOTE | 2024-02-28 08:24 | W.ANESPOSTOP ---
Postoperative Evaluation Date, Time and Location Date Performed: 02/28/24 Time Performed: 08:15 Patient Location: Day Surgery Unit Vital Signs Most Recent Imported Vital Signs: Most Recent Vital Signs Temp Pulse Resp BP Pulse Ox 36.4 C L 67 18 137/81 98 02/28/24 08:09 02/28/24 08:09 02/28/24 08:09 02/28/24 08:09 02/28/24 08:09 Pain Score Most Recent Pain Score: Most Recent Pain Score Pain Level 0 02/28/24 08:09 Assessment Mental Status: Awake (Alert & Oriented to Patient Baseline) Airway and Respiratory Function: Patent airway with normal (patient baseline) respiratory exam Cardiovascular Function: Hemodynamically Stable Hydration Status: Adequately Hydrated Nausea & Vomiting: No Nausea or Vomiting Pain: Pt. Denies Any Pain Peripheral Nerve Block: Patient did not receive a nerve block
[2024-02-28 08:35] VITALS: BP 128/84; PULSE 71; RESP 18; TEMP 36; O2SAT 96
== END 2024-02-28 08:41 | disposition home or self-care (01) ==
PROVIDERS: PCP Physician Assistant; Visit Provider Ophthalmology
PROC: (CPT 66984; principal; 2024-02-28 07:30)
DX: H25.011 Cortical age-related cataract, right eye (principal); H25.11 Age-related nuclear cataract, right eye; Z98.42 Cataract extraction status, left eye
CPT/HCPCS: 66984; 00123; V2632; J2003; J2250

== ENCOUNTER 2024-03-23 13:21 | Outpatient (CLI) | payer MEDICARE, SELFPAY ==
[2024-03-23 10:02] LABS: Abs Immature Grans 0.01 10^3/uL (0.0-0.06); Absolute Basophil Count 0.03 10^3/uL (0.0-0.2); Absolute Eosinophil Count 0.11 10^3/uL (0.0-0.7); Absolute Lymphocyte Count 1.82 10^3/uL (1.2-3.4); Absolute Monocyte Count 0.41 10^3/uL (0.1-0.8); Basophils % 0.5 %; HCT 42.3 % (36.0-46.0); Immature Grans % 0.2 %; Lymphocytes % 32.6 %; MCH 27.5 pg (27.0-33.0); MCHC 33.1 % (32.0-36.0); MCV 83 fL (80-95); MPV 11.2 fL (8.0-11.0); Monocytes % 7.3 %; Neutrophils % 57.4 %; Platelet Count 224 10^3/uL (130-400); RDW 12.5 % (11.7-14.6); RDW-SD 38.1 fL; WBC 5.58 10^3/uL (4.4-10.8)
[2024-03-23 10:05] LABS: ESR 9 mm/hr (0-30)
[2024-03-23 10:15] LABS: C-Reactive Protein < 0.50 mg/dL (<or=0.5); Glucose 100 mg/dL (74-106)
--- OUTSIDE RECORDS SUMMARY | 2024-03-23 13:30 | XMS_ITS | Encounter Summary ---
Author Organization [facility] Address [address] [place] [address] Care Team Providers Care Senior Systems Developer Name Role Phone Ava Leonard MD Primary Care Provider [phone] [phone] Reason for Visit * Reason Onset Date Comments Coordination Of Care 04/10/2023 Encounter Details Date Type Department Care Team (Late st Contact Info) Description 04/10/2023 Telephone [facility] [address], [place] [id number] Urmila Gleason MD [address] [facility] [place] [address] Coordination Of Care Social History Tobacco Use Types Packs/Day Years Used Date Smoking Tobacco: Former Cigarettes 1.5 2 0 03/25/1977 - 03/25/1979 Smokeless Tobacco: Never Alcohol Use Standard Drinks/Week Comments Not Asked 0 (1 standard drink = 0.6 oz pur e alcohol) Interpersonal Safety Answer Date Record ed Physically Hurt Never 10/25/2019 Verbally Threaten Not on file 10/25/2019 Comments No Sex and Gender Information Value Date Recorded Sex Assigned at Not on file Legal Sex Female 13:41 EST Gender Identity Female 03/12/2019 11:22 EST Sexual Orientation Not on file documented as of this encounter Miscellaneous Notes * Telephone Encounter - Maria Dolores Munroe - 04/10/2023 1317 EST Patient called and asked that her recent notes be faxed to her new Neurologists office in [facility] - Dr. Mabel Mccarthy at [facility] Ph. [phone] F. [phone] documented in this encounter Plan of Treatment Not on file documented as of this encounter Visit Diagnoses Not on filedocumented in this encounter Care Teams Senior Systems Developer Relationship Specialty Start Date End Date Ava Leonard MD [address] [place] [address] PCP - General 04/19/14 documented as of this encounter
--- OUTSIDE RECORDS SUMMARY | 2024-03-23 13:30 | XMS_ITS | Encounter Summary ---
Author Organization [facility] Address [address] [place] [address] Care Team Providers Care System Controller Name Role Phone Ava Leonard MD Primary Care Provider [phone] [phone] Reason for Referral * Radiology Services (Routine/Next Available) - Authorization Not Required Specialty Diagnoses / Procedures Referred By Contac t Referred To Contact Diagnoses Encounter for screening mammogram for malignant neoplasm of breast Procedures MA BREAST SCREENING STEPHEN BILATERAL Ava Leonard MD Phone: tel: fax: [facility] Referral ID Status Reason Start Date Expiration Date Visits Requested Visits Authorized [id number] Authorization Not Required 06/04/2021 1 1 Reason for Visit * Radiology Services (Routine/Next Available) - Authorization Not Required Specialty Diagnoses / Procedures Referred By Contac nadya Referred To Contact Diagnoses Encounter for screening mammogram for malignant neoplasm of breast Procedures MA BREAST SCREENING STEPHEN BILATERAL Ava Leonard MD Phone: tel: fax: [facility] Referral ID Status Reason Start Date Expiration Date Visits Requested Visits Authorized [id number] Authorization Not Required 06/04/2021 1 1 Encounter Details Date Type Department Care Team (Latest Contact Info) Description 08/29/2021 11:05 EDT - 08/29/2021 23:59 EDT Hospital Encounter [facility] [address] [place] [address] Encounter for screening mammogram for malignant neoplasm [...] or other abnormalities are seen. Procedure Note Anson Flores MD - 08/29/2021 MA BREAST SCREENING STEPHEN [...] is needed we will contact yourpatient directly. us Ava Leonard MD IMG MAMMOGRAPHY ORDERABLE S Final Result documented in this encounter Visit Diagnoses Diagnosis Encounter for screening mammogram for malignant neoplasm of breast Other screening mammogram documented in this encounter Care Teams System Controller Relationship Specialty Start Date End Date Ava Leonard MD [address] [facility] [address] [place] [id number] PCP - General 04/19/14 documented as of this encounter
--- OUTSIDE RECORDS SUMMARY | 2024-03-23 13:30 | XMS_ITS | Encounter Summary ---
Author Organization [facility] Address [address] [place] [address] Care Team Providers Care Data Collection Interviewer Name Role Phone Ava Leonard MD Primary Care Provider [phone] [phone] Reason for Referral * Radiology Services (Routine) - Closed Specialty Diagnoses / Procedures Referred By Contac t Referred To Contact Radiology Diagnoses Pulsatile tinnitus, right ear Procedures MR HEAD W WO CONTRAST MR HEAD WO CONTRAST Ava Leonard MD Phone: tel: fax: Referral ID Status Reason Start Date Expiration Date Visits Re quested Visits Authorized [id number] Closed 02/03/2019 1 1 Reason for Visit * Radiology Services (Routine) - Closed Specialty Diagnoses / Procedures Referred By Contac t Referred To Contact Radiology Diagnoses Pulsatile tinnitus, right ear Procedures MR HEAD W WO CONTRAST MR HEAD WO CONTRAST Ava Leonard MD Phone: tel: fax: Referral ID Status Reason Start Date Expiration Date Visits Re quested Visits Authorized [id number] Closed 02/03/2019 1 1 Encounter Details Date Type Department Care Team (Latest Contact Info) Description 03/16/2019 6:17 EST - 03/16/2019 8:23 EST Hospital Encounter [facility] [address] [place] [address] Pulsatile tinnitus, right ear Discharge Disposition: Home or Self Care Social History Tobacco Use Types Packs/Day Years Used Date Smoking Tobacco: Former Cigarettes 1.5 2 0 03/25/1977 - 03/25/1979 Smokeless Tobacco: Never Alcohol Use Standard Drinks/Week Comments Not Asked 0 (1 standard drink = 0.6 oz pur e alcohol) Comments No Sex and Gender Information Value [...] andagree with the findings. Ava Leonard MD IM MRI ORDERABLES Final Result documented in this encounter Visit [...] 03/16/2019 documented in this encounter Care Teams Data Collection Interviewer Relationship Specialty Start Date End Date Ava Leonard MD [address] [place] [address] PCP - General 04/19/14 documented as of this encounter
--- OUTSIDE RECORDS SUMMARY | 2024-03-23 13:30 | XMS_ITS | Encounter Summary ---
Author Organization [facility] Address [address] [place] [address] Care Team Providers Care Director Airport Operations Name Role Phone Ava Leonard MD Primary Care Provider [phone] [phone] Encounter Details Date Type Department Care Team (Late st Contact Info) Description 09/18/2021 Plan of Care Documentation [facility] Speech & Language [address] [place] [address] Social History Tobacco Use Types Packs/Day Years [...] Note *TELEPRACTICE VISIT* Name: Martha Solares Address: [address] [place] [address] (home) Date of : 1950 Primary Physician: Ava Leonard Referring Physician: Kamron Prakash* CORN DETASSELER MACHINE OPERATOR Diagnosis: Dysphonia Medical Diagnosis: Muscle Tension Dysphonia Date of Onset: 10/14/20 Date of Referral: 10/14/20 Date of Service: 09/18/2021 Total Treatment Time: 1300, 30 minutes Name of Provider: Sheryl Bose M.S., [facility]-CORN DETASSELER MACHINE OPERATOR SUBJECTIVE: I really feel like I know what to do. OBJECTIVE: Martha was seen today after almost 3 mos to continue a course of CORN DETASSELER MACHINE OPERATOR intervention to address goals related to dysphonia. Patient has been seen 5 times by CORN DETASSELER MACHINE OPERATOR services since initial evaluation. Please refer to [...] in today's encounter visit: Sheryl Bose M.S., [facility]-CORN DETASSELER MACHINE OPERATOR The concept of ???telehealth has been described [...] Measures: Acoustic measurements were obtained using the [employer] Multi Dimensional Voice Program, with patient 2 inches away from the [facility]. All normative data is based [...] Voice breaks are a perceptual correlate to supfi-kz-uyorrgtt ratio. Dkvje-lk-zcvnhywi ratio (NtR) 0.12 Less than or equal to 0.19 is considered normal Breathiness: Breathiness is a perceptual correlate to voice turbulence index (VTI). Voice turbulence index (VTI) 0.05 Less than or equal to 0.06 is considered normal Multi-Dimensional Voice Program (MDVP): Image indicates norms for RAP, Jomar, NtH, & VTI in the [place]. Patient???s measures are indicated in the red [...] buildup in her pharynx. She has triedall zidl-fni-insliab remedies as well as maintaining excellent hydration [...] been participating in a course of outpatient CORN DETASSELER MACHINE OPERATOR intervention to address dysphonia. 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 She is seen today to continue a course of intervention to address goals related to dysphonia. She has been seen for a total of 5 CORN DETASSELER MACHINE OPERATOR treatment sessions. Today, Martha continues to report [...] made for consideration of a singing or financial coach for use of tuning apps on [...] ?? Martha has demonstrated good benefit from CORN DETASSELER MACHINE OPERATOR intervention. Education has been ongoing on voice [...] noise. MET PLAN/RECOMMENDATIONS: At this time skilled CORN DETASSELER MACHINE OPERATOR intervention will be discontinued. Martha was encouraged to contact me at this center if new concerns around her voice arise. Sheryl Bose M.S., [facility]-CORN DETASSELER MACHINE OPERATOR 09/18/2021 9:03 Plan ATTENDING PHYSICIAN: Medicare certification needed. Your signature indicates you approve the therapy goals and plan of care outlined on this document dated 09/18/2021. Thank you! Attending Physician Signature Date YAHAIRA HARMON 09/18/2021 15:41 documented in this encounter Plan of Treatment Not on file documented as of this encounter Visit Diagnoses Not on filedocumented in this encounter Care Teams Director Airport Operations Relationship Specialty Start Date End Date Ava Leonard MD [address] [place] [address] PCP - General 04/19/14 documented as of this encounter
--- OUTSIDE RECORDS SUMMARY | 2024-03-23 13:30 | XMS_ITS | Clinical Summary ---
[facility] [place] [address] Care Team Providers Care Disc Pad Grinding Machine Feeder Name Role Phone Amaury Ely Primary Care Provider [phone] Social History Tobacco Use Types Packs/Day Years [...] Decision Needed 1992 Breast Cancer screening 1992 Pneumoccocal Vaccine: 65+ (1 of 1 - PCV) 2002 Zoster vaccine (1 of 2) 2002 Advance Directive 10/04/2007 Bone Density Scan 2017 Covid-19 Vaccine ( - 2023-25 season) 2023 Influenza (Flu) vaccine (1 o f 1 - Influenza standard series) 11/24/2023 Care Teams Disc Pad Grinding Machine Feeder Relationship Specialty Start Date End Date Amaury Ely PA [address] [place] [address] PCP - General Internal Medicine 10/26/22
--- OUTSIDE RECORDS SUMMARY | 2024-03-23 13:30 | XMS_ITS | Encounter Summary ---
Author Organization [facility] Address [address] [place] [address] Care Team Providers Care County Nurse Name Role Phone Ava Leonard MD Primary Care Provider [phone] Encounter Details Date Type Department Care Team (Late st Contact Info) Description 03/23/2024 Lab Requisition [facility] Pathology & Laboratory Medicine - [facility] [address] [place] [address] Outr Resulting Lab, Provider Social History Tobacco [...] as of this encounter Plan of Treatment Scheduled Orders Name Type Priority Associated Diagnoses Orde r Schedule ANTI NUCLEAR AB (JACKIE), IFA Lab Routine Ordered: 03/23/2024 SYPHILIS SEROLOGY Lab Routine Ordered : 03/23/2024 documented as of this encounter Visit Diagnoses Not on filedocumented in this encounter Care Teams County Nurse Relationship Specialty Start Date End Date Ava Leonard MD [address] [place] [address] PCP - General 04/19/14 documented as of this encounter
--- OUTSIDE RECORDS SUMMARY | 2024-03-23 13:30 | XMS_ITS | Encounter Summary ---
Author Organization [facility] Address [address] [place] [address] Care Team Providers Care Turbine Operator Name Role Phone Aav Leonard MD Primary Care Provider [phone] [phone] Reason for Referral * (Routine/Next Available) - Receiving Office to Obtain Authorization Specialty Diagnoses / Procedures Referred By Contac t Referred To Contact Procedures CT OUTSIDE IMAGES HEAD Imaging, External Referral ID Status Reason Start Date Expiration Date Visits Requested Visits Authorized [id number] Receiving Office to Obtain Authorization 3 1 1 Reason for Visit * (Routine/Next Available) - Receiving Office to Obtain Authorization Specialty Diagnoses / Procedures Referred By Contac t Referred To Contact Procedures CT OUTSIDE IMAGES HEAD Imaging, External Referral ID Status Reason Start Date Expiration Date Visits Requested Visits Authorized [id number] Receiving Office to Obtain Authorization 3 1 1 Encounter Details Date Type Department Care Team (Latest Contact Info) Description 01/25/2023 - 01/25/2023 23:59 EDT Hospital Encounter [facility] Secondary Reads [place] Discharge Disposition: Home [...] 14:54 EST This is a non-reportable exam. us External Imaging IMG OTHER IMAGING ORDERABLES Fi nal Result documented in this encounter Visit Diagnoses Not on filedocumented in this encounter Care Teams Turbine Operator Relationship Specialty Start Date End Date Ava Leonard MD [address] [place] [address] PCP - General 04/19/14 documented as of this encounter
--- OUTSIDE RECORDS SUMMARY | 2024-03-23 13:30 | XMS_ITS | Encounter Summary ---
Author Organization [facility] Address [address] [place] [address] Care Team Providers Care Transcribing Operators Supervisor Name Role Phone Ava Leonard MD Primary Care Provider [phone] Reason for Visit * Reason Onset Date Comments Medical Records 02/18/2023 Encounter Details Date Type Department Care Team (Late st Contact Info) Description 02/18/2023 Telephone [facility] [address] [place], [place] [id number] Urmila Gleason MD [address] [facility], [address] [place] [address] Medical Records Social History Tobacco [...] called to discuss CT sinus complted outside [facility]. Patient stated her most recent imaging of sinus was at [facility], but could not recall the exact date. Explained to patient we will request those images and report on her behalf. Called radiology at [facility] and requested images and report. Pending receipt. documented in this encounter Plan of Treatment Not on file documented as of this encounter Visit Diagnoses Not on filedocumented in this encounter Care Teams Transcribing Operators Supervisor Relationship Specialty Start Date End Date Ava Leonard MD [address] [place] [address] PCP - General 04/19/14 documented as of this encounter
--- OUTSIDE RECORDS SUMMARY | 2024-03-23 13:30 | XMS_ITS | Encounter Summary ---
Author Organization [facility] Address [address] [place] [address] Care Team Providers Care Back Shoe Cutter Name Role Phone Ava Leonard MD Primary Care Provider [phone] [phone] Reason for Visit * Reason Comments New Patient Visit Atypical facial pain * Referral (Routine) - Receiving Office to Obtain Authorization Specialty Diagnoses / Procedures Referred By Marc covington Referred To Contact Otolaryngology Diagnoses Dysphonia Ava Leonard MD Phone: tel: fax: [address] [address] Phone: tel: fax: Referral ID Status Reason Start Date Expiration Date Visits Requested Visits Authorized [id number] Receiving Office to Obtain Authorization 1 1 Encounter Details Date Type Department Care Team (Late st Contact Info) Description 04/05/2023 9:00 EST Office Visit [address] [id number] Urmila Gleason MD [address] [place] [address], [address] [place] [id number] Atypical facial pain (Primary Dx) Social History [...] dental roots that began in the mid s. It has been worsening over the last several decades and is now present daily. She saw dentist in the mid 1999' when she was living in [facility] who stated that she had the longest dental roots he had ever seen and offered some type of procedure to alleviate this. She declined. She also saw an ENT in [facility] who ordered a CT scan last year to evaluate for deviated septum. She sustained a facial injury years ago to the right side of her face, prompting that imaging recommendation. The scan was normal with well ventilated sinuses, recommended oral appliance for TMJ. She utilizes without notable change. She subsequently saw a [facility] affiliated category development manager in [facility], skin testing not completed but medications recommended. She has a history of suicidal ideation with some prescription medicine so she carefully reviewed all of the medications recommended. She elected to pursue xykj-qpl-uatfktv antihistamines and 1 steroid nasal spray. She did not notice any change. In addition, she was evaluated by a animal skinner. Recommendations made but again, no change. Aggravating [...] may reflect changes made after this encounter. vitamin E acetate (VITAMIN E ORAL) Take by mouth. ergocalciferol, vitamin D2, (VITAMIN D ORAL) Take by mouth. B-complex with vitamin C (VITAMIN B COMPLEX-C ORAL) Take by mouth. added in this encounter Care Teams Back Shoe Cutter Relationship Specialty Start Date End Date Ava Leonard MD [address] [facility] [address] [place] [address] PCP - General 04/19/14 documented as of this encounter
--- OUTSIDE RECORDS SUMMARY | 2024-03-23 13:30 | XMS_ITS | Encounter Summary ---
Author Organization [facility] Address [address] [place] [address] Care Team Providers Care Brake Holder Name Role Phone Ava Leonard MD Primary Care Provider [phone] [phone] Reason for Visit * Reason Comments Hoarse Other dysphonia * Referral (Routine) - Receiving Office to Obtain Authorization Specialty Diagnoses / Procedures [facility] By [facility] Referred To Contact Otolaryngology Diagnoses Dysphonia Ava Leonard MD Phone: tel: fax: [address] [address] Phone: tel: fax: Referral ID Status Reason Start Date Expiration Date Visits Requested Visits Authorized [id number] Receiving Office to Obtain Authorization 1 1 Encounter Details Date Type Department Care Team (Late st Contact Info) Description 02/02/2021 13:00 EST Office Visit [address] [address] Kamron Prakash MD [address] [facility], [address] [place] [id number] Muscle tension dysphonia (Primary Dx) Social History [...] is a second S[place] or even in [place]. She sings at home with her grandchildren and during times of religious. She does not have any difficulty breathing [...] and Family: Not on file ??? Attends Gnosticism Services: Not on file ??? Active Member [...] was provided. I have also placed an PHOTO CHECKER referral for voice evaluation and possible outpatient voice therapy. I will see her on as- needed basis in the future. documented in this encounter Plan of Treatment Not on file documented as of this encounter Visit Diagnoses Diagnosis Muscle tension dysphonia- Primary Dysphonia documented in this encounter Care Teams Brake Holder Relationship Specialty Start Date End Date Ava Leonard MD [address] [place] [address] PCP - General 04/19/14 documented as of this encounter
--- OUTSIDE RECORDS SUMMARY | 2024-03-23 13:30 | XMS_ITS | Encounter Summary ---
[place] [address] Care Team Providers Care Commercial Kitchen Service Technician Name Role Phone Amaury Ely Primary Care Provider Reason for Referral * Diagnostic Test (Routine) - Closed Specialty Diagnoses / Procedures Referred By Contac t Referred To Contact Radiology Diagnoses Abdominal pain, right upper quadrant Procedures MRI Cholangiopancreatography wwo Amaury Herndon PA [address] [place] [address] [place] [address] Referral ID Status Reason Start Date Expiration Date V isits Requested Visits Authorized [id number] Closed Specialty Service Requested 10/18/2022 04/20/2024 1 1 Reason for Visit * Diagnostic Test (Routine) - Closed Specialty Diagnoses / Procedures Referred By Contac t Referred To Contact Radiology Diagnoses Abdominal pain, right upper quadrant Procedures MRI Cholangiopancreatography wwo Amaury Herndon PA [address] [place] [address] [place] [address] Referral ID Status Reason Start Date Expiration Date V isits Requested Visits Authorized [id number] Closed Specialty Service Requested 10/18/2022 04/20/2024 1 1 Encounter Details Date Type Department Care Team (Latest Contact Info) Description 11/13/2022 6:43 PM EDT - 11/13/2022 11:59 PM EDT Hospital [place] [address] Amaury Ely PA [address] [place] [address] Abdominal pain, right upper quadrant Discharge Disposition: [...] who have questions please contact the health child care associate teacher that requested your imaging first. ? Narrative 11/14/2022 3:56 PM EDT EXAMINATION: MRI [...] patients who have questions please contactthe health child care associate teacher that requested your imaging first. Amaury JOEL IMAusten MRI ORDERABLES documented in [...] mLs documented in this encounter Care Teams Commercial Kitchen Service Technician Relationship Specialty Start Date End Date Amaury Ely PA [address] [place] [address] PCP - General Internal Medicine 10/26/22 documented as of this encounter
--- OUTSIDE RECORDS SUMMARY | 2024-03-23 13:30 | XMS_ITS | Encounter Summary ---
Author Organization [facility] Address [address] [place] [address] Care Team Providers Care Janitorial Maintenance Worker Name Role Phone Ava Leonard MD Primary Care Provider [phone] [phone] Encounter Details Date Type Department Care Team [...] on filedocumented in this encounter Care Teams Janitorial Maintenance Worker Relationship Specialty Start Date End Date Ava Leonard MD [address] [place], [place] [address] PCP - General 04/19/14 documented as of this encounter
--- OUTSIDE RECORDS SUMMARY | 2024-03-23 13:30 | XMS_ITS | Encounter Summary ---
Author Organization [facility] Address [address] [place] [address] Care Team Providers Care Box Office Attendant Name Role Phone Ava Leonard MD Primary Care Provider [phone] [phone] Encounter Details Date Type Department Care Team (Late st Contact Info) Description 10/19/2019 Lab Requisition [facility] Pathology & Laboratory Medicine - [facility] [address] [place] [address] Ava Leonard MD [address] [place] [address] [address] [place] [address] Vitamin D deficiency, unspecified Social [...] 30.0 - 100.0 ng/mL 10/20/2019 10:34 EDT [facility] Comment: Vitamin D 25,OH Interpretive Ranges: Deficiency: ??<10.0 ng/mL Insufficiency: ??10.0 - 30.0 ng/mL Sufficiency: ??30.0 - 100.0 ng/mL Toxicity: ??>100.0 ng/mL Blood VENOUS BLOOD / Unknown 10/19/2019 10:34 EDT 10/19/2019 15:27 EDT Ava Leonard MD CHEMISTRY & BLOOD GAS ORD ERABLES Final Result [facility] [address] [place] [address] documented in this encounter Visit Diagnoses Diagnosis Vitamin D deficiency, unspecified documented in this encounter Care Teams Box Office Attendant Relationship Specialty Start Date End Date Ava Leonard MD [address] [place] [address] PCP - General 04/19/14 documented as of this encounter
--- OUTSIDE RECORDS SUMMARY | 2024-03-23 13:30 | XMS_ITS | Encounter Summary ---
Author Organization [facility] Address [address] [place] [address] Care Team Providers Care Battery Tester Name Role Phone Ava Leonard MD Primary Care Provider [phone] [phone] Reason for Referral * Radiology Services (Routine) - Closed Specialty Diagnoses / Procedures Referred By Marc covington Referred To Contact Diagnoses Cholesterolosis of gallbladder Procedures US ABDOMEN LIMITED Ava Leonard MD Phone: tel: fax: Referral ID Status Reason Start Date Expiration Date Visits Re quested Visits Authorized [id number] Closed 05/04/2020 1 1 Reason for Visit * Radiology Services (Routine) - Closed Specialty Diagnoses / Procedures Referred By Marc covington Referred To Contact Diagnoses Cholesterolosis of gallbladder Procedures US ABDOMEN LIMITED Ava Leonard MD Phone: tel: fax: Referral ID Status Reason Start Date Expiration Date Visits Re quested Visits Authorized [id number] Closed 05/04/2020 1 1 Encounter Details Date Type Department Care Team (Latest Contact Info) Description 05/18/2020 8:17 EST - 05/18/2020 23:59 EST Hospital [facility] [address] [place] [address] Cholesterolosis of gallbladder Discharge Disposition: Home or [...] guidelines, annualfollow-up is recommended for 5 years. us Ava Leonard MD [facility] US ORDERABLES Final R esult documented in this encounter Visit Diagnoses Diagnosis Cholesterolosis of gallbladder documented in this encounter Care Teams Battery Tester Relationship Specialty Start Date End Date Ava Leonard MD [address] [place] [address] PCP - General 04/19/14 documented as of this encounter
--- OUTSIDE RECORDS SUMMARY | 2024-03-23 13:30 | XMS_ITS | Encounter Summary ---
Author Organization [facility] Address [address] [place] [address] Care Team Providers Care Nurse Practitioner Hospitalist Name Role Phone Ava Leonard MD Primary Care Provider [phone] [phone] Encounter Details Date Type Department Care Team (Late st Contact Info) Description 10/13/2022 Lab Requisition [facility] Pathology & Laboratory Medicine - [facility] [address] [place] [address] Outr Resulting Lab, Provider Social History Tobacco [...] Factor <8.6 <12.0 IU/mL 10/13/2022 22:09 EDT [facility] Blood VENOUS BLOOD / Unknown 10/12/2022 11:10 EDT 10/13/2022 21:47 EDT us Provider Outr Resulting Lab CHEMISTRY & BLOOD GA S ORDERABLES Final Result Performing Organization Address [facility] Co de Phone Number [facility] [address] [place] [address] * ANTI NUCLEAR AB (JACKIE), IFA (10/12/2022 11:10 EDT) JACKIE Interpretation Negative Negative 2022 14:37 EDT [facility] Comment:No titer performed, JACKIE Screen is negative. Blood VENOUS BLOOD / Unknown 10/12/2022 11:10 EDT 10/13/2022 21:47 EDT Narrative [facility] - 10/15/2022 14:37 EDT Results were obtained with the INOVA NOVA Lite HEp-2 JACKIE Kit by indirect immunofluorescence. us Provider Outr Resulting Lab IMMUNOLOGY AND SEROL OGY ORDERABLES Final Result Performing Organization Address City/[facility]/ZIP Co de Phone Number [facility] [address] [place] [address] documented in this encounter Visit Diagnoses Not on filedocumented in this encounter Care Teams Nurse Practitioner Hospitalist Relationship Specialty Start Date End Date Ava Leonard MD [address] [place] [address] PCP - General 04/19/14 documented as of this encounter
--- OUTSIDE RECORDS SUMMARY | 2024-03-23 13:30 | XMS_ITS | Encounter Summary ---
Author Organization [facility] Address [address] [place] [address] Care Team Providers Care Tax Collection Coordinator Name Role Phone Ava Leonard MD Primary Care Provider [phone] [phone] Reason for Visit * Reason Onset Date Comments Appointment Related 02/26/2023 Encounter Details Date Type Department Care Team (Late st Contact Info) Description 02/26/2023 Telephone [facility] [address] [place], [place] [id number] Urmila Gleason MD [address] [facility], [address] [place] [address] Appointment Related Social History Tobacco [...] for patient regarding appointment scheduled February 28. Cloth Mender advised Dr. Urmila Gleason will no longer [...] on filedocumented in this encounter Care Teams Tax Collection Coordinator Relationship Specialty Start Date End Date Ava Leonard MD [address] [facility] [address] [place] [address] PCP - General 04/19/14 documented as of this encounter
--- OUTSIDE RECORDS SUMMARY | 2024-03-23 13:30 | XMS_ITS | Clinical Summary ---
Author Organization [facility] Address [address] [place] [address] Care Team Providers Care Fight Manager Name Role Phone Ava Leonard MD Primary Care Provider +1 [phone] Allergies Active Allergy Reactions Criticality Noted Date Comments Alendronate 04/05/2023 Severe headaches Penicillins 02/02/2021 Levothyroxine 04/05/2023 Suicidal ideation, nervous Bupropion Hcl 04/05/2023 Suicidal ideation Wheat 02/02/2021 Medications B-complex with vitamin C (VITAMIN B COMPLEX-C ORAL) Take by mouth. Active ergocalciferol, vitamin D2, (VITAMIN D ORAL) Take by mouth. Active vitamin E acetate (VITAMIN E ORAL) Take by mouth. Active Encounters Date Type Department Care Team Description 03/23/2024 Lab Requisition [facility] Pathology & Laboratory Medicine - [facility] [address] [place] [address] Outr Resulting Lab, Provider from Last 3 Months Immunizations Name Administration Dates Next Due Covid-19 [...] 2 2 Date Outcome GA Total Labor Labor//3rd Weight Sex Type Anes PTL Leda A1 [...] Health Maintenance Due Date Last Done Comments Fall Risk Screening 2017 COVID-19 Vaccine ( season) 11/24/202302/2021, 06/06/2020 RSV Immunization ( o r 60+ Years) (1 - 1-dose 75+ series) 10/04/2027 Hepatitis C Screen Completed 03/06/2019 Procedures Procedure [...] C Antibody Negative Negative 03/09/2019 10:49 EST [facility] Blood VENOUS BLOOD / Unknown 03/06/2019 12:50 EST 03/06/2019 16:07 EST us Ava Leonard MD CHEMISTRY & BLOOD GAS ORD ERABLES Final Result [facility] [address] [place] [address] from Last 3 Months or Most Recently Relevant to Health Maintenance [place] [address] MEDICARE [facility] [employer] Address: [place] [id number] Care Teams Fight Manager Relationship Specialty Start Date End Date Ava Leonard MD [address] [place] [address] PCP - General 04/19/14
--- OUTSIDE RECORDS SUMMARY | 2024-03-23 13:30 | XMS_ITS | Encounter Summary ---
Author Organization [facility] Address [address] [place] [address] Care Team Providers Care Asian Studies Program Chair Name Role Phone Ava Leonard MD Primary Care Provider [phone] [phone] Encounter Details Date Type Department Care Team [...] on filedocumented in this encounter Care Teams Asian Studies Program Chair Relationship Specialty Start Date End Date Ava Leonard MD [address] [place], [place] [address] PCP - General 04/19/14 documented as of this encounter
--- OUTSIDE RECORDS SUMMARY | 2024-03-23 13:30 | XMS_ITS | Encounter Summary ---
Author Organization [facility] Address [address] [place] [address] Care Team Providers Care Nuisance Wildlife Specialist Name Role Phone Ava Leonard MD Primary Care Provider [phone] [phone] Encounter Details Date Type Department Care Team (Late st Contact Info) Description 01/17/2021 Orders Only [facility] [address] [place] [address] Ilan Mcelroy, RN [address] [place] [address] Encounter for preprocedure screening laboratory testing for [...] Primary documented in this encounter Care Teams Nuisance Wildlife Specialist Relationship Specialty Start Date End Date Ava Leonard MD [address] [place] [address] PCP - General 04/19/14 documented as of this encounter
--- OUTSIDE RECORDS SUMMARY | 2024-03-23 13:30 | XMS_ITS | Encounter Summary ---
Author Organization [facility] Address [address] [place] [address] Care Team Providers Care Inspector Set Up And Lay Out Name Role Phone Ava Leonard MD Primary Care Provider [phone] [phone] Encounter Details Date Type Department Care Team (Late st Contact Info) Description 10/10/2020 Lab Requisition [facility] Pathology & Laboratory Medicine - [facility] [address] [place] [address] Ava Leonard MD [address] [place] [address] [address] [place] [address] Vitamin D deficiency, unspecified Social [...] 30.0 - 100.0 ng/mL 10/11/2020 10:19 EDT [facility] Comment: Vitamin D 25,OH Interpretive Ranges: Deficiency: ??<10.0 ng/mL Insufficiency: ??10.0 - 30.0 ng/mL Sufficiency: ??30.0 - 100.0 ng/mL Toxicity: ??>100.0 ng/mL Blood VENOUS BLOOD / Unknown 10/10/2020 12:06 EDT 10/10/2020 19:59 EDT us Ava Leonard MD CHEMISTRY & BLOOD GAS ORD ERABLES Final Result [facility] [address] [place] [address] documented in this encounter Visit Diagnoses Diagnosis Vitamin D deficiency, unspecified documented in this encounter Care Teams Inspector Set Up And Lay Out Relationship Specialty Start Date End Date Ava Leonard MD [address] [place] [address] PCP - General 04/19/14 documented as of this encounter
--- OUTSIDE RECORDS SUMMARY | 2024-03-23 13:30 | XMS_ITS | Encounter Summary ---
Author Organization [facility] [place] [address] Care Team Providers Care Release Of Information Specialist Name Role Phone Amaury Ely Primary Care Provider [phone] Encounter Details Date Type Department Care Team [...] on filedocumented in this encounter Care Teams Release Of Information Specialist Relationship Specialty Start Date End Date Amaury Ely PA [address] [place] [address] PCP - General Internal Medicine 10/26/22 documented as of this encounter
--- OUTSIDE RECORDS SUMMARY | 2024-03-23 13:30 | XMS_ITS | Referral Summary ---
Author Organization [facility] Address [address] [place] [address] Care Team Providers Care Registered Nurse Maternal Child Name Role Phone Ava Leonard MD Primary Care Provider [phone] [phone] Encounters Date Type Department Care Team Description 03/23/2024 Lab Requisition [facility] Pathology & Laboratory Medicine - [facility] [address] [place] [address] Outr Resulting Lab, Provider from Last 3 Months Allergies Active Allergy Reactions Criticality Noted Date Comments Alendronate 04/05/2023 Severe headaches Penicillins 02/02/2021 Levothyroxine 04/05/2023 Suicidal ideation, nervous Bupropion Hcl 04/05/2023 Suicidal ideation Wheat 02/02/2021 Medications B-complex with vitamin C (VITAMIN B COMPLEX-C ORAL) Take by mouth. Active ergocalciferol, vitamin D2, (VITAMIN D ORAL) Take by mouth. Active vitamin E acetate (VITAMIN E ORAL) Take by mouth. Active Immunizations Name Administration Dates Next Due Covid-19 [...] C Antibody Negative Negative 03/09/2019 10:49 EST [facility] Blood VENOUS BLOOD / Unknown 03/06/2019 12:50 EST 03/06/2019 16:07 EST us Ava Leonard MD CHEMISTRY & BLOOD GAS ORD ERABLES Final Result [facility] [address] [place] [address] from Last 3 Months or Most Recently Relevant to Health Maintenance Insurance [employer] MEDICARE [facility] Address: [address] [address] Care Teams Registered Nurse Maternal Child Relationship Specialty Start Date End Date Ava Leonard MD [address] [place] [address] [address] [facility] - General 04/19/14
--- OUTSIDE RECORDS SUMMARY | 2024-03-23 13:30 | XMS_ITS | Encounter Summary ---
Author Organization [facility] Address [address] [place] [address] Care Team Providers Care Yard Attendant Name Role Phone Ava Leonard MD Primary Care Provider [phone] [phone] Encounter Details Date Type Department Care Team (Late st Contact Info) Description 06/11/2021 Plan of Care Documentation [facility] Speech & Language [address] [place] [address] Social History Tobacco Use Types Packs/Day Years [...] Evaluation and Treatment Name: Martha Solares Address: [address] [place] [id number] (home) Date of : 1950 Primary Physician: Ava Leonard Referring Physician: Kamron Prakash* LENO SEWER Diagnosis: Dysphonia Medical Diagnosis: Muscle Tension Dysphonia Date of Onset: 10/14/20 Date of Referral: 10/14/20 Date of Service: 05/31/2021 Total Treatment Time: 1300, 90 minutes ( 70 min eval, 20 min treatment) Name of Provider: Adele Angela B.A., Senior Qc Technician Clinician ; Sheryl Bose M.S., [facility] SUBJECTIVE: I'm excited to begin therapy. 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 Specifically, she reports that her voice gets progressively cracklyand she is unable to hit notes that were previously easily reached. Social/Emotional Background: Voice Demands: Ms. Solares describes moderate voice demands in her life. 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 All normative data is based on the patient's age and gender. Results follow: Results Norm Pitch: Pitch is a perceptual correlate to fundamental frequency (Fo). Sustained phonation of /a/ 154 Hz Adult (female): 150-230 Hz Counting task (1-10) 145 Hz - Reading Task ([place]) 163 Hz 93-275.4 Hz Conversation 149 [...] Voice breaks are a perceptual correlate to okugx-fv-fsgotrgu ratio. Nuqur-ia-nrmhbjce ratio (NtR) 0.16 Less than or equal to 0.19 is considered normal Breathiness: Breathiness is a perceptual correlate to voice turbulence index (VTI). Voice turbulence index (VTI) 0.04 Less than or equal to 0.06 is considered normal Multi-Dimensional Voice Program (MDVP): Image indicates norms for RAP, Jomar, NtH, & VTI in the green [place]. Patient???s measures are indicated in the red [...] indicates possible vocal fold etiology Norms Sources: Barrington & Eufemia; Clinical Measurement [...] improvement is considered excellent. Functional Communication Measures (Serbian Speech- Language- Hearing Association, 2002). The Functional Communication Measures (FCM???s) are a series of 7 point rating scales, ranging fromleast functional (Level 1) to most functional (Level 7). They have been developed by ALEXEY to describe different aspects of patient???s functional communication and swallowing abilities over the course of [facility] SEWER intervention. Voice Level 5: Voice occasionally sounds [...] Solares participate in a period of skilled LENO SEWER intervention once a week for 5 weeks. Sessions will be 60 minutes in length. Thank you very much for this referral. Adele Angela B.A., Senior Qc Technician Clinician 05/31/2021 8:44 [facility] Senior Qc Technician Clinician Clinical Instructor Statement: Regarding today's visit, I have personally interviewed, examined, and discussed the patient and their plan of care with YAHAIRA Rai Senior Qc Technician Clinician. I was present for the patient's session to provide 100% supervision. I have reviewed the documentation and edited YAHAIRA Rai Senior Qc Technician Clinician's note and concur with the interpretation and findings. Sheryl Bose M.S., [facility] 06/02/2021 12:52 Plan ATTENDING PHYSICIAN: Medicare certification needed. Your signature indicates you approve the therapy goals and plan of care outlined on this document dated 05/31/2021. Thank you! Attending Physician Signature Date YAHAIRA HARMON 06/11/2021 7:23 documented in this encounter Plan of Treatment Not on file documented as of this encounter Visit Diagnoses Not on filedocumented in this encounter Care Teams Yard Attendant Relationship Specialty Start Date End Date Ava Leonard MD [address] [address] PCP - General 04/19/14 documented as of this encounter
--- OUTSIDE RECORDS SUMMARY | 2024-03-23 13:30 | XMS_ITS | Encounter Summary ---
Author Organization [facility] Address [address] [place] [address] Care Team Providers Care Financial Services Rep Name Role Phone Ava Leonard MD Primary Care Provider [phone] [phone] Reason for Referral * Radiology Services (Routine) - Closed Specialty Diagnoses / Procedures Referred By Marc covington Referred To Contact Diagnoses Breast cancer screening Procedures MA BREAST SCREENING STEPHEN BILATERAL Ava Leonard MD Phone: tel: fax: Referral ID Status Reason Start Date Expiration Date Visits Re quested Visits Authorized [id number] Closed 06/26/2019 1 1 Reason for Visit * Radiology Services (Routine) - Closed Specialty Diagnoses / Procedures Referred By Marc covington Referred To Contact Diagnoses Breast cancer screening Procedures MA BREAST SCREENING STEPHEN BILATERAL Ava Leonard MD Phone: tel: fax: Referral ID Status Reason Start Date Expiration Date Visits Re quested Visits Authorized [id number] Closed 06/26/2019 1 1 Encounter Details Date Type Department Care Team (Latest Contact Info) Description 07/11/2020 14:36 EDT - 07/11/2020 23:59 EDT Hospital Encounter [facility] [address] [place] [address] [phone] Breast cancer screening Discharge Disposition: Home or [...] Results * MA BREAST SCREENING STEPHEN BILATERAL (07/11/2020 15:04 EDT) Anatomical Region Laterality [...] unspecified documented in this encounter Care Teams Financial Services Rep Relationship Specialty Start Date End Date Ava Leonard MD [address] [facility] [address] [place] [address] PCP - General 04/19/14 documented as of this encounter
--- OUTSIDE RECORDS SUMMARY | 2024-03-23 13:30 | XMS_ITS | Encounter Summary ---
Author Organization [facility] Address [address] [place] [address] Care Team Providers Care Family Services Worker Name Role Phone Ava Leonard MD Primary Care Provider [phone] [phone] Encounter Details Date Type Department Care Team (Late st Contact Info) Description 01/16/2021 Orders Only [facility]- [facility] [address] [place] [address] Ilan Mcelroy, RN [address] [place] [address] Encounter for preprocedure screening laboratory testing for [...] Primary documented in this encounter Care Teams Family Services Worker Relationship Specialty Start Date End Date Ava Leonard MD [address] [place] [address] PCP - General 04/19/14 documented as of this encounter
--- OUTSIDE RECORDS SUMMARY | 2024-03-23 13:30 | XMS_ITS | Encounter Summary ---
Author Organization [facility] Address [address] [place] [address] Care Team Providers Care Senior Warehouse Clerk Name Role Phone Ava Leonard MD Primary Care Provider [phone] [phone] Reason for Visit * Reason Onset Date Comments Appointment Related 01/02/2021 Encounter Details Date Type Department Care Team (Late st Contact Info) Description 01/02/2021 Telephone [facility] [address] [place] [address] Kamron Prakash MD [address] [facility], [address] [place] [address] Appointment Related Social History Tobacco [...] an upcoming patient visit with dr Dwain guerra on 01/17/21 at 1 pm Due to [...] this message or call the office at [phone]. Message left on vm documented in this encounter Plan of Treatment Not on file documented as of this encounter Visit Diagnoses Diagnosis Encounter for preprocedure screening laboratory testing for COVID-19- Primary documented in this encounter Care Teams Senior Warehouse Clerk Relationship Specialty Start Date End Date Ava Leonard MD [address] [place] [address] PCP - General 04/19/14 documented as of this encounter
--- OUTSIDE RECORDS SUMMARY | 2024-03-23 13:30 | XMS_ITS | Encounter Summary ---
Author Organization [facility] Address [address] [place] [address] Care Team Providers Care Director Of Healthcare Systems Name Role Phone Ava Leonard MD Primary Care Provider [phone] [phone] Reason for Visit * Reason Onset Date Comments COVID-19 01/17/2021 Encounter Details Date Type Department Care Team (Late st Contact Info) Description 01/17/2021 Telephone [facility] [address] [place] [address] Kamron Prakash MD [address] [facility], [address] [place] [phone] COVID-19 Social History Tobacco Use Types Packs/Day [...] they would like covid testing done at [facility]. [employer] faxed the order to [phone] and asked that they schedule the patient for testing on 01/30. Also made patient aware of testing date. [employer] will also remove patient from the work queue. documented in this encounter Plan of Treatment Not on file documented as of this encounter Visit Diagnoses Not on filedocumented in this encounter Care Teams Director Of Healthcare Systems Relationship Specialty Start Date End Date Ava Leonard MD [address] [place] [address] PCP - General 04/19/14 documented as of this encounter
--- OUTSIDE RECORDS SUMMARY | 2024-03-23 13:30 | XMS_ITS | Encounter Summary ---
Author Organization [facility] Address [address] [place] [address] Care Team Providers Care Revenue Integrity Analyst Name Role Phone Ava Leonard MD Primary Care Provider +1 -[phone] Reason for Visit * Reason Onset Date Comments COVID-19 01/08/2021 Testing Encounter Details Date Type Department Care Team (Late st Contact Info) Description 01/08/2021 Telephone [facility] [address] [place] [address] Kamron Prakash MD [address] [facility], [address] [place] [address] COVID-19 (Testing) Social History Tobacco [...] 01/08/2021 1017 EDT Patient will be in [place] until the evening of 01/14 and cannot get COVID-19 testing in time for her appt on 01/17. Patient is requesting a call to discuss options/possible rescheduling. documented in this encounter Plan of Treatment Not on file documented as of this encounter Visit Diagnoses Not on filedocumented in this encounter Care Teams Revenue Integrity Analyst Relationship Specialty Start Date End Date Ava Leonard MD [address] [facility] [address] [place] [address] PCP - General 04/19/14 documented as of this encounter
--- OUTSIDE RECORDS SUMMARY | 2024-03-23 13:30 | XMS_ITS | Encounter Summary ---
Author Organization [facility] Address [address] [place] [address] Care Team Providers Care Tassel Clipper Name Role Phone Ava Leonard MD Primary Care Provider +1 -[phone] Encounter Details Date Type Department Care Team (Late st Contact Info) Description 03/08/2020 Lab Requisition [facility] Pathology & Laboratory Medicine - [facility] [address] [place] [address] Ava Leonard MD [address] [place] [address] [address] [place] [address] Vitamin D deficiency, unspecified Social [...] 30.0 - 100.0 ng/mL 03/09/2020 10:21 EST [facility] Comment: Vitamin D 25,OH Interpretive Ranges: Deficiency: ??<10.0 ng/mL Insufficiency: ??10.0 - 30.0 ng/mL Sufficiency: ??30.0 - 100.0 ng/mL Toxicity: ??>100.0 ng/mL Blood VENOUS BLOOD / Unknown 03/08/2020 14:47 EST 03/08/2020 19:43 EST us Ava Leonard MD CHEMISTRY & BLOOD GAS ORD ERABLES Final Result [facility] [address] [place] [address] documented in this encounter Visit Diagnoses Diagnosis Vitamin D deficiency, unspecified documented in this encounter Care Teams Tassel Clipper Relationship Specialty Start Date End Date Ava Leonard MD [address] [place] [address] PCP - General 04/19/14 documented as of this encounter
--- OUTSIDE RECORDS SUMMARY | 2024-03-23 13:30 | XMS_ITS | Encounter Summary ---
Author Organization [facility] Address [address] [place] [address] Care Team Providers Care Linen Manager Name Role Phone Ava Leonard MD Primary Care Provider +1 [phone] Encounter Details Date Type Department Care Team (Late st Contact Info) Description 09/20/2023 Lab Requisition [facility] Pathology & Laboratory Medicine - [facility] [address] [place] [address] Severiano Atwood MD [address] [place] [address], [address] [place], [place] [id number] Encounter for screening for malignant neoplasm of [...] management options, if applicable. 09/23/2023 14:34 EDT [facility] Final Diagnosis A. COLON, AT 35 CM, POLYP, BIOPSY: - Tubular adenoma. 09/23/2023 14:34 T [facility] Attestation By the signature below, the attending physician certifies that they have 1) personally conducted a gross and/or microscopic examination of the described specimen(s), and/or personally interpreted the results of laboratory testing of the described specimen(s), and 2) personally rendered or confirmed the above diagnosis. 09/23/2023 14:34 [facility] at 1434 Clinical History Screening colo 09/23/2023 14:34 [facility] Gross Description A. Received in formalin labelled with proper patient identification (initials M, J) and polyp @ 35 cm is an aggregate of boothe tissues (0.7 x 0.6 x 0.1 cm). Entirely submitted in A1. Ava Horton 09/21/2023 11:53 09/23/2023 14:34 T [facility] Performing Lab [facility] 09/23/2023 14:34 T [facility] Scanned Images 09/23/2023 14:34 [facility] Tissue COLON STRUCTURE / Unknown 09/20/2023 9:28 EDT 09/20/2023 19:58 EDT us Severiano Atwood MD PATHOLOGY ORDERABLES Final Resu lt [facility] [address] [place] [address] documented in this encounter Visit Diagnoses Diagnosis Encounter for screening for malignant neoplasm of colon Special screening for malignant neoplasms, colon documented in this encounter Care Teams Linen Manager Relationship Specialty Start Date End Date Ava Leonard MD [address] [place] [address] PCP - General 04/19/14 documented as of this encounter
--- OUTSIDE RECORDS SUMMARY | 2024-03-23 13:30 | XMS_ITS | Encounter Summary ---
Author Organization [facility] Address [address] [place] [address] Care Team Providers Care Engine Hostler Name Role Phone Ava Leonard MD Primary Care Provider [phone] [phone] Reason for Referral * Radiology Services (Routine) - Closed Specialty Diagnoses / Procedures Referred By Marc t Referred To Contact Radiology Diagnoses Pulsatile tinnitus, right ear Procedures MR ANGIO HEAD WO CONTRAST Ava Leonard MD Phone: tel: fax: Referral ID Status Reason Start Date Expiration Date Visits Re quested Visits Authorized [id number] Closed 02/03/2019 1 1 Reason for Visit * Radiology Services (Routine) - Closed Specialty Diagnoses / Procedures Referred By Marc covington Referred To Contact Radiology Diagnoses Pulsatile tinnitus, right ear Procedures MR ANGIO HEAD WO CONTRAST Ava Leonard MD Phone: tel: fax: Referral ID Status Reason Start Date Expiration Date Visits Re quested Visits Authorized [id number] Closed 02/03/2019 1 1 Encounter Details Date Type Department Care Team (Latest Contact Info) Description 03/16/2019 6:17 EST - 03/16/2019 8:23 EST Hospital Encounter [facility] [address] [place] [address] Pulsatile tinnitus, right ear Discharge Disposition: Home [...] the findings. Ava Leonard MD IMG MRI ORDERABLES Final Result documented in this encounter Visit Diagnoses Diagnosis Pulsatile tinnitus, right ear documented in this encounter Care Teams Engine Hostler Relationship Specialty Start Date End Date Ava Leonard MD [address] [place] [address] PCP - General 04/19/14 documented as of this encounter
--- OUTSIDE RECORDS SUMMARY | 2024-03-23 13:30 | XMS_ITS | Encounter Summary ---
Author Organization [facility] Address [address] [place] [address] Care Team Providers Care Training Representative Name Role Phone Ava Leonard MD Primary Care Provider +1 -[phone] Encounter Details Date Type Department Care Team (Late st Contact Info) Description 02/22/2022 Lab Requisition [facility] Pathology & Laboratory Medicine - [facility] [address] [place] [address] Outr Resulting Lab, Provider Social History Tobacco [...] Priority Date/Time Associated Diagnosis Comments ZZCOVID-19 TEST [facility] PCR Today 02/21/2022 12:20 EST COVID-19 TESTING Routine 02/21/2022 12:2 0 EST documented in this encounter Results * COVID-19 TEST [facility] PCR (02/21/2022 12:20 EST) Swab 02/21/2022 12:2 0 EST 02/22/2022 17:30 EST us Provider Outr Resulting Lab MICROBIOLOGY - GENER AL ORDERABLES Final Result Performing Organization Address City/[facility] Co de Phone Number [facility] [address] [place] [address] * COVID-19 TESTING (02/21/2022 12:20 EST) COVID-19 rt-PCR Result Negative Negative 02/23/2022 12:10 EST [facility] Comment: This test has not [...] performed using the neena SARS-CoV-2 assay ([employer] on the Neena 6800 System Performing Lab Neena 6800 [facility] 02/23/2022 12:10 EST [facility] Swab 02/21/2022 12:2 0 EST 02/22/2022 17:30 EST us Provider Outr Resulting Lab MICROBIOLOGY - GENER AL ORDERABLES Final Result Performing Organization Address City/[facility]/ZIP Co de Phone Number [facility] [address] [place] [address] documented in this encounter Visit Diagnoses Not on filedocumented in this encounter Care Teams Training Representative Relationship Specialty Start Date End Date Ava Leonard MD [address] [facility] [address] [place] [address] PCP - General 04/19/14 documented as of this encounter
--- OUTSIDE RECORDS SUMMARY | 2024-03-23 13:30 | XMS_ITS | Encounter Summary ---
Author Organization [facility] Address [address] [place] [address] Care Team Providers Care Metal Turner Name Role Phone Ava Leonard MD Primary Care Provider +1 -[phone] Reason for Referral * Radiology Services (Routine) - Closed Specialty Diagnoses / Procedures Referred By Marc covington Referred To Contact Diagnoses Abnormal levels of other serum enzymes Procedures US ABDOMEN LIMITED Ava Leonard MD Phone: tel: fax: Referral ID Status Reason Start Date Expiration Date Visits Re quested Visits Authorized [id number] Closed 03/08/2019 1 1 Reason for Visit * Radiology Services (Routine) - Closed Specialty Diagnoses / Procedures Referred By Marc covington Referred To Contact Diagnoses Abnormal levels of other serum enzymes Procedures US ABDOMEN LIMITED Ava Leonard MD Phone: tel: fax: Referral ID Status Reason Start Date Expiration Date Visits Re quested Visits Authorized [id number] Closed 03/08/2019 1 1 Encounter Details Date Type Department Care Team (Latest Contact Info) Description 03/16/2019 8:24 EST - 03/16/2019 23:59 EST Hospital Encounter [facility] Radiology US - Main [place] [address] [place] [address] Abnormal levels of other serum enzymes Discharge [...] the above interpretation andagree with the findings. us Ava Leonard MD IMG US ORDERABLES Final R esult documented in this encounter Visit Diagnoses Diagnosis Abnormal levels of other serum enzymes documented in this encounter Care Teams Metal Turner Relationship Specialty Start Date End Date Ava Leonard MD [address] [address] [address] [place] [address] PCP - General 04/19/14 documented as of this encounter
--- OUTSIDE RECORDS SUMMARY | 2024-03-23 13:30 | XMS_ITS | Encounter Summary ---
Author Organization [facility] Address [address] [place] [address] Care Team Providers Care Religious Education Coordinator Name Role Phone Ava Leonard MD Primary Care Provider +1 -[phone] Encounter Details Date Type Department Care Team (Late st Contact Info) Description 08/29/2022 Lab Requisition [facility] Pathology & Laboratory Medicine - [facility] [address] [place] [address] Outr Resulting Lab, Provider Social History Tobacco [...] Lyme Ab Negative Negative 08/30/2022 9:40 EDT [facility] Blood VENOUS BLOOD / Unknown 08/28/2022 12:15 EDT 08/29/2022 17:12 EDT us Provider Outr Resulting Lab IMMUNOLOGY AND SEROL OGY ORDERABLES Final Result Performing Organization Address City/State/[facility] Co de Phone Number [facility] [address] [place] [address] documented in this encounter Visit Diagnoses Not on filedocumented in this encounter Care Teams Religious Education Coordinator Relationship Specialty Start Date End Date Ava Leonard MD [address] [place] [address] PCP - General 04/19/14 documented as of this encounter
--- OUTSIDE RECORDS SUMMARY | 2024-03-23 13:31 | XMS_ITS | Encounter Summary ---
Author Organization [facility] Address [address] [place] [address] Care Team Providers Care Heel Padder Name Role Phone Ava Leonard MD Primary Care Provider +1 -[phone] Encounter Details Date Type Department Care Team (Late st Contact Info) Description 08/22/2018 Results Only [facility] - [address] [address] Carolina Campos MD [address] [place] [address] Social History Tobacco Use Types Packs/Day Years [...] 6.09 4.0 - 12.4 K/cmm 08/22/2018 15:05 [facility] RBC 4.55 3.86 - 5.04 M/cmm 08/22/2018 15:05 [facility] Hemoglobin 12.6 11.6 - 15.2 gm/dl 08/22/2018 15:05 [facility] HCT 38.5 34.9 - 44.4 % 08/22/2018 15:05 [facility] MCV 85 81 - 98 fl 08/22/2018 15:05 [facility] MCH 27.7 26.7 - 33.3 pg 08/22/2018 15:05 [facility] MCHC 32.7 32.1 - 35.9 gm/dl 08/22/2018 15:05 [facility] RDW-CV 12.9 <14.7 % 08/22/2018 15:05 [facility] RDW-SD 39.6 <50.4 fl 08/22/2018 15:05 [facility] PLT 236 141 - 377 K/cmm 08/22/2018 15:05 [facility] MPV 12.2 9.5 - 12.7 fl 08/22/2018 15:05 [facility] BLOOD SPECIMEN / Unknown 08/22/2018 10:14 EDT 08/22/2018 14:34 EDT us Carolina Campos MD HEMATOLOGY & PF4 ORDERABLE S Final Result [facility] [address] [place] [address] * LYME AB (08/22/2018 10:14 EDT) Lyme AB Negative 08/25/2018 12:51 EDT [facility] Comment:Reference Range: Neg ative BLOOD SPECIMEN / Unknown 08/22/2018 10:14 EDT 08/22/2018 14:34 EDT Carolina Campos MD IMMUNOLOGY AND SEROLOGY OR DERABLES Final Result [facility] [address] [place] [address] documented in this encounter Visit Diagnoses Not on filedocumented in this encounter Care Teams Heel Padder Relationship Specialty Start Date End Date Ava Leonard MD [address] [place] [address] PCP - General 04/19/14 documented as of this encounter
--- OUTSIDE RECORDS SUMMARY | 2024-03-23 13:31 | XMS_ITS | Encounter Summary ---
Author Organization [facility] Address [address] [place] [address] Care Team Providers Care Financial Director Name Role Phone Ava Leonard MD Primary Care Provider +1 -[phone] Encounter Details Date Type Department Care Team (Late st Contact Info) Description 07/11/2017 Results Only Imaging [facility] [phone] Ava Leonard MD [address] [place] [address] [address] [place] [address] Social History Tobacco Use Types [...] above interpretation and agree with the findings. us Ava Leonard MD IMG MAMMOGRAPHY ORDERABLE S Final Result documented in this encounter Visit Diagnoses Not on filedocumented in this encounter Care Teams Financial Director Relationship Specialty Start Date End Date Ava Leonard MD [address] [facility] [address] [place] [address] PCP - General 04/19/14 documented as of this encounter
--- OUTSIDE RECORDS SUMMARY | 2024-03-23 13:31 | XMS_ITS | Encounter Summary ---
Author Organization [facility] Address [address] [place] [address] Care Team Providers Care Rn Circulating Name Role Phone Ava Leonard MD Primary Care Provider +1 -[phone] Encounter Details Date Type Department Care Team (Late st Contact Info) Description 06/16/2015 Orders Only [facility] [address] [place], [place] [address] Aav Leonard MD [address] [place] [address] [address] [place] [address] Social History Tobacco Use Types [...] on filedocumented in this encounter Care Teams Rn Circulating Relationship Specialty Start Date End Date Ava Leonard MD [address] [facility] [address] [place] [address] PCP - General 04/19/14 documented as of this encounter
--- OUTSIDE RECORDS SUMMARY | 2024-03-23 13:31 | XMS_ITS | Encounter Summary ---
Author Organization [facility] Address [address] [place] [address] Care Team Providers Care Regulatory Affairs Consultant Name Role Phone Ava Leonard MD Primary Care Provider +1 -[phone] Encounter Details Date Type Department Care Team (Latest Contact Info) Description 07/06/2016 7:15 EDT - 07/06/2016 23:59 EDT Hospital Encounter [facility] [place] [address] [place] [address] Ava Leonard MD [address] [place] [address] [address] [place] [address] Discharge Disposition: Auto Discharge Social [...] on filedocumented in this encounter Care Teams Regulatory Affairs Consultant Relationship Specialty Start Date End Date Ava Leonard MD [address] [address] PCP - General 04/19/14 documented as of this encounter
--- OUTSIDE RECORDS SUMMARY | 2024-03-23 13:31 | XMS_ITS | Encounter Summary ---
Author Organization [facility] Address [address] [place] [address] Care Team Providers Care Spool Cleaner Hand Name Role Phone Ava Leonard MD Primary Care Provider +1 -[phone] Encounter Details Date Type Department Care Team (Late st Contact Info) Description 07/06/2016 Results Only Imaging [facility] [phone] Ava Leonard MD [address] [place] [address] [address] [place] [address] Social History Tobacco Use Types [...] patient directly. Ava Leonard MD IMG MAMMOGRAPHY ORDERABLE S Final Result documented in this encounter Visit Diagnoses Not on filedocumented in this encounter Care Teams Spool Cleaner Hand Relationship Specialty Start Date End Date Ava Leonard MD [address] [place] [address] PCP - General 04/19/14 documented as of this encounter
--- OUTSIDE RECORDS SUMMARY | 2024-03-23 13:31 | XMS_ITS | Encounter Summary ---
Author Organization [facility] Address [address] [place] [address] Care Team Providers Care Evidence Technician Name Role Phone Jonathan Leonard MD Primary Care Provider +1 -[phone] Encounter Details Date Type Department Care Team (Late st Contact Info) Description 05/30/2015 Results Only [facility] [phone] Jonathan Leonard MD [address] [place] [address] [place] [address] Social History Tobacco Use Types Packs/Day Years Used Date Smoking Tobacco: Never Assessed Comments Unknown Sex and Gender Information Value Date Recorded [...] ? SARAH SOLARES ? Accession #: ? [id number] ? : ? 1950 (Age: 64) ??F [...] types 16,18,31,33,35, 39,45,51,52,56,58, 59,66, and 68 by last chalker mediated amplification. Comments Document reviewed and electronically signed by: ? System Interface ? Report date: 06/07/2015 By the signature above, the attending physician certifies that he/she has personally conducted a gross and/or microscopic examination of the described specimens and rendered or confirmed the above diagnosis. End of Report [facility] 05/30/2015 05/31/2015 us Jonathan Leonard MD PATHOLOGY ORDERABLES Sameera palma Result [facility] [address] [place] [address] documented in this encounter Visit Diagnoses Not on filedocumented in this encounter Care Teams Evidence Technician Relationship Specialty Start Date End Date Jonathan Leonard MD [address] [facility] [address] [place] [address] PCP - General 04/19/14 documented as of this encounter
--- OUTSIDE RECORDS SUMMARY | 2024-03-23 13:31 | XMS_ITS | Encounter Summary ---
Author Organization [facility] Address [address] [place] [address] Care Team Providers Care Tube Coverer Name Role Phone Ava Leonard MD Primary Care Provider +1 -[phone] Encounter Details Date Type Department Care Team (Latest Contact Info) Description 06/13/2015 8:06 EDT - 06/13/2015 23:59 EDT Hospital Encounter [facility] [address] [place] [address] Ava Leonard MD [address] [place] [address] [address] [place] [address] Discharge Disposition: Auto Discharge Social [...] on filedocumented in this encounter Care Teams Tube Coverer Relationship Specialty Start Date End Date Ava Leonard MD [address] [address] PCP - General 04/19/14 documented as of this encounter
--- OUTSIDE RECORDS SUMMARY | 2024-03-23 13:31 | XMS_ITS | Encounter Summary ---
Author Organization [facility] Address [address] [place] [address] Care Team Providers Care Networks Software Consultant Name Role Phone Ava Leonard MD Primary Care Provider +1 -[phone] Encounter Details Date Type Department Care Team (Latest Contact Info) Description 05/30/2015 16:19 EST - 05/30/2015 16:20 [facility] Hospital Encounter [facility] - [address] [address] Ava Leonard MD [address] [place] [address] Discharge Disposition: Home or Self Care [...] on filedocumented in this encounter Care Teams Networks Software Consultant Relationship Specialty Start Date End Date Ava Leonard MD [address] [place] [address] PCP - General 04/19/14 documented as of this encounter
--- OUTSIDE RECORDS SUMMARY | 2024-03-23 13:31 | XMS_ITS | Encounter Summary ---
Author Organization [facility] Address [address] [place] [address] Care Team Providers Care Optical Element Coater Name Role Phone Ava Leonard MD Primary Care Provider +1 -[phone] Encounter Details Date Type Department Care Team (Late st Contact Info) Description 06/13/2015 Results Only Imaging [facility] [phone] Ava Leonard MD [address] [place] [address] [address] [place] [address] Social History Tobacco Use Types [...] on filedocumented in this encounter Care Teams Optical Element Coater Relationship Specialty Start Date End Date Ava Leonard MD [address] [place] [address] PCP - General 04/19/14 documented as of this encounter
--- OUTSIDE RECORDS SUMMARY | 2024-03-23 13:31 | XMS_ITS | Encounter Summary ---
Author Organization [facility] Address [address] [place] [address] Care Team Providers Care Gis Professor Name Role Phone Ava Leonard MD Primary Care Provider +1 -[phone] Encounter Details Date Type Department Care Team (Late st Contact Info) Description 08/22/2018 10:51 EDT - 08/22/2018 10:52 EDT Hospital Encounter [address] [address] Carolina Campos MD [address] [place] [address] Discharge Disposition: Home or Self Care Social [...] on filedocumented in this encounter Care Teams Gis Professor Relationship Specialty Start Date End Date Ava Leonard MD [address] [facility] [address] [place] [address] PCP - General 04/19/14 documented as of this encounter
--- OUTSIDE RECORDS SUMMARY | 2024-03-23 13:31 | XMS_ITS | Encounter Summary ---
Author Organization [facility] Address [address] [place] [address] Care Team Providers Care Inside Sales Representative Name Role Phone Ava Leonard MD Primary Care Provider +1 -[phone] Encounter Details Date Type Department Care Team (Late st Contact Info) Description 02/03/2019 [facility] - Main [place] [address] [place] [address] Shari Aquino Social History Tobacco Use Types [...] on filedocumented in this encounter Care Teams Inside Sales Representative Relationship Specialty Start Date End Date Ava Leonard MD [address] [facility] [address] [place] [address] PCP - General 04/19/14 documented as of this encounter
--- OUTSIDE RECORDS SUMMARY | 2024-03-23 13:31 | XMS_ITS | Encounter Summary ---
Author Organization [facility] Address [address] [place] [address] Care Team Providers Care Film Sorter Name Role Phone Ava Leonard MD Primary Care Provider +1 -[phone] Encounter Details Date Type Department Care Team (Latest Contact Info) Description 07/11/2017 8:59 EDT - 07/11/2017 23:59 EDT Hospital Encounter [facility] [place] [address] [place] [address] Ava Leonard MD [address] [place] [address] [address] [place] [address] Discharge Disposition: Auto Discharge Social [...] on filedocumented in this encounter Care Teams Film Sorter Relationship Specialty Start Date End Date Ava Leonard MD [address] [address] PCP - General 04/19/14 documented as of this encounter
--- OUTSIDE RECORDS SUMMARY | 2024-03-23 13:31 | XMS_ITS | Encounter Summary ---
Author Organization [facility] Address [address] [place] [address] Care Team Providers Care Consulting Application Engineer Name Role Phone Ava Leonard MD Primary Care Provider +1 -[phone] Encounter Details Date Type Department Care Team (Latest Contact Info) Description 07/14/2018 7:09 EDT - 07/14/2018 23:59 EDT Hospital Encounter [facility] [place] [address] [place] [address] Ava Leonard MD [address] [place] [address] [address] [place] [address] Discharge Disposition: Auto Discharge Social [...] on filedocumented in this encounter Care Teams Consulting Application Engineer Relationship Specialty Start Date End Date Ava Leonard MD [address] [address] PCP - General 04/19/14 documented as of this encounter
--- OUTSIDE RECORDS SUMMARY | 2024-03-23 13:31 | XMS_ITS | Encounter Summary ---
Author Organization [facility] Address [address] [place] [address] Care Team Providers Care Senior Database Administrator Name Role Phone Ava Leonard MD Primary Care Provider +1 -[phone] Encounter Details Date Type Department Care Team (Late st Contact Info) Description 08/06/[address] [facility] [address] [place], [place] [address] Ava Leonard MD [address] [place] [address] [address] [place] [address] Social History Tobacco Use Types [...] filedocumented in this encounter Care Teams Senior Database Administrator Relationship Specialty Start Date End Date Ava Leonard MD [address] [facility] [address] [place] [address] PCP - General 04/19/14 documented as of this encounter
--- OUTSIDE RECORDS SUMMARY | 2024-03-23 13:31 | XMS_ITS | Encounter Summary ---
Author Organization [facility] Address [address] [place] [address] Care Team Providers Care Rayon Tester Name Role Phone Ava Leonard MD Primary Care Provider +1 -[phone] Encounter Details Date Type Department Care Team (Late st Contact Info) Description 04/19/2014 Results Only Imaging [facility] [phone] Ava Leonard MD [address] [place] [address] [address] [place] [address] Social History Tobacco Use Types [...] needed we will contact your patient directly. us Ava Leonard MD IMG MAMMOGRAPHY ORDERABLE S Final Result documented in this encounter Visit Diagnoses Not on filedocumented in this encounter Care Teams Rayon Tester Relationship Specialty Start Date End Date Ava Leonard MD [address] [facility] [address] [facility] [address] [place] [address] PCP - General 04/19/14 documented as of this encounter
--- OUTSIDE RECORDS SUMMARY | 2024-03-23 13:31 | XMS_ITS | Encounter Summary ---
Author Organization [facility] Address [address] [place] [address] Care Team Providers Care Registered Private Duty Nurse Name Role Phone Ava Leonard MD Primary Care Provider +1 -[phone] Reason for Visit * Reason Comments Osteoporosis Encounter Details Date Type Department Care Team (Latest Contact Info) Description 08/01/2017 13:30 EDT Office Visit [facility] Osteoporosis - Main [place] [address] [place] [address] Shruti Núñez [place] [address] [place] [address] Edu Anderson MD History of alendronate [...] DXA DUAL XRAY ABSORPTIOMETRY FOR BONE DENSITY ([facility] PERFORMED) Routine 08/06/2017 13:43 EDT Osteoporosis, unspecified osteoporosis type, unspecified pathological fracture presence documented in this encounter Results * DXA DUAL XRAY ABSORPTIOMETRY FOR BONE DENSITY (08/06/2017 13:43 EDT) DEXA Bone Density [facility] DEXA Bone Density, External [facility] Anatomical Region Laterality Modality Other 08/06/2017 13:4 3 EDT us Ava Leonard MD IMG DEXA ORDERABLES Final Result documented in this encounter Visit Diagnoses Diagnosis History of alendronate therapy- Primary Osteoporosis, unspecified osteoporosis type, unspecified pathological fracture presence Screening for osteoporosis Special screening for osteoporosis Post-menopausal Asymptomatic postmenopausal status (age-related) (natural) documented in this encounter Care Teams Registered Private Duty Nurse Relationship Specialty Start Date End Date Ava Leonard MD [address] [place] [address] PCP - General 04/19/14 documented as of this encounter
--- OUTSIDE RECORDS SUMMARY | 2024-03-23 13:31 | XMS_ITS | Encounter Summary ---
Author Organization [facility] Address [address] [place] [address] Care Team Providers Care Director Of Sports Performance Name Role Phone Ava Leonard MD Primary Care Provider +1 -[phone] Encounter Details Date Type Department Care Team (Late st Contact Info) Description 05/07/2014 Results Only Imaging [facility] [address] [place] [address] Michelle Taveras MD [address] [facility] Level 1 [place] [address] Social History Tobacco Use Types [...] in this encounter Care Teams Director Of Sports Performance Relationship Specialty Start Date End Date Ava Leonard MD [address] [place] [address] PCP - General 04/19/14 documented as of this encounter
--- OUTSIDE RECORDS SUMMARY | 2024-03-23 13:31 | XMS_ITS | Encounter Summary ---
Author Organization [facility] Address [address] [place] [address] Care Team Providers Care Coding Technician Name Role Phone Ava Leonard MD Primary Care Provider +1 -[phone] Encounter Details Date Type Department Care Team (Latest Contact Info) Description 05/12/2014 6:53 EST - 05/12/2014 23:59 EST Hospital Encounter [facility] - [address] [address] Ava Leonard MD [address] [place] [address] [address] [place] [address] Discharge Disposition: Auto Discharge Social [...] on filedocumented in this encounter Care Teams Coding Technician Relationship Specialty Start Date End Date Ava Leonard MD [address] [facility] [address] [place] [address] PCP - General 04/19/14 documented as of this encounter
--- OUTSIDE RECORDS SUMMARY | 2024-03-23 13:31 | XMS_ITS | Encounter Summary ---
Author Organization [facility] Address [address] [place] [address] Care Team Providers Care Docket Clerk Name Role Phone Ava Leonard MD Primary Care Provider [phone] Reason for Referral * (Routine) - Closed Specialty Diagnoses / Procedures Referred By Contsanchez covington Referred To Contact Diagnoses Osteopenia Procedures DXA-DUAL XRAY ABSORPTIOMETRY FOR BONE DENSITY Ava Leonard MD Phone: tel: fax: Referral ID Status Reason Start Date Expiration Date Visits Re quested Visits Authorized [id number] Closed 07/01/2015 1 1 Encounter Details Date Type Department Care Team (Late st Contact Info) Description 06/01/2015 Orders Only [facility] Osteoporosis - [facility] [address] [place] [address] Ava Leonard MD [address] [place] [address] [place] [phone] Osteopenia (Primary Dx) Social History Tobacco [...] DENSITY (06/16/2015 9:58 EDT) DEXA Bone Density [facility] DEXA Bone Density, External [facility] Anatomical Region Laterality Modality Other 06/16/2015 9:58 EDT us Ava Leonard MD IMG DEXA ORDERABLES Final Result documented in this encounter Visit Diagnoses Diagnosis Osteopenia- Primary Disorder of bone and cartilage, unspecified documented in this encounter Care Teams Docket Clerk Relationship Specialty Start Date End Date Ava Leonard MD [address] [place] [address] PCP - General 04/19/14 documented as of this encounter
--- OUTSIDE RECORDS SUMMARY | 2024-03-23 13:31 | XMS_ITS | Encounter Summary ---
Author Organization [facility] Address [address] [place] [address] Care Team Providers Care Reactor Operator Name Role Phone Ava Leonard MD Primary Care Provider [phone] Encounter Details Date Type Department Care Team (Late st Contact Info) Description 07/14/[address] [facility] [phone] Ava Leonard MD [address] [place] [address] [address] [place] [address] Social History Tobacco Use Types [...] on filedocumented in this encounter Care Teams Reactor Operator Relationship Specialty Start Date End Date Ava Leonard MD [address] [place] [address] PCP - General 04/19/14 documented as of this encounter
--- OUTSIDE RECORDS SUMMARY | 2024-03-23 13:31 | XMS_ITS | Encounter Summary ---
Author Organization [facility] Address [address] [place] [address] Care Team Providers Care Senior Mainframe Programmer Analyst Name Role Phone Ava Leonard MD Primary Care Provider [phone] Reason for Referral * (Routine) - New Request Specialty Diagnoses / Procedures [facility] Referred To Contact Diagnoses Osteoporosis, unspecified osteoporosis type, unspecified pathological fracture presence Procedures DXA DUAL XRAY ABSORPTIOMETRY FOR BONE DENSITY Ava Leonard MD Phone: tel: fax: Referral ID Status Reason Start Date Expiration Date V isits Requested Visits Authorized [id number] New Request 05/30/2017 1 1 Encounter Details Date Type Department Care Team (Late st Contact Info) Description 05/30/2017 Orders Only [facility] Osteoporosis - [place] [address] [place] [address] Ava Leonard MD [address] [place] [address] [address] [place] [address] Osteoporosis, unspecified osteoporosis type, unspecified pathological [...] DENSITY (08/06/2017 13:43 EDT) DEXA Bone Density [facility] DEXA Bone Density, External [facility] Anatomical Region Laterality Modality Other 08/06/2017 13:4 3 EDT Ava Leonard MD IMG DEXA ORDERABLES Final Result documented in this encounter Visit Diagnoses Diagnosis Osteoporosis, unspecified osteoporosis type, unspecified pathological fracture presence- Primary documented in this encounter Care Teams Senior Mainframe Programmer Analyst Relationship Specialty Start Date End Date Ava Leonard MD [address] [place] [address] PCP - General 04/19/14 documented as of this encounter
--- OUTSIDE RECORDS SUMMARY | 2024-03-23 13:31 | XMS_ITS | Encounter Summary ---
Author Organization [facility] Address [address] [place] [address] Care Team Providers Care Veterinary Epidemiologist Name Role Phone Ava Leonard MD Primary Care Provider [phone] Encounter Details Date Type Department Care Team (Late st Contact Info) Description 03/06/2019 Lab Requisition [facility] Pathology & Laboratory Medicine - [facility] [address] [place] [address] Ava Leonard MD [address] [place] [address] [address] [place] [phone] Abnormal levels of other serum [...] <3.1 See Note mIU/mL 03/09/2019 10:00 EST [facility] Comment: Reference Range for Hep B Surface Ab, Quant: Positive: >= 10.0 mIU/mL Negative: ??< 10.0 mIU/mL Patient is presumed to not be immune to infection with Hepatitis B Virus. Hep B Surface Ab, Qualitative Negative See Note 03/09/2019 10:00 EST [facility] Comment: Reference Range for Hep B Surface Ab, Qual: Unvaccinated: ??Negative Vaccinated: ??Positive Blood VENOUS BLOOD / Unknown 03/06/2019 12:50 EST 03/06/2019 16:07 EST us Ava Leonard MD CHEMISTRY & BLOOD GAS ORD ERABLES Final Result Performing Organization Address [facility] Co de Phone Number [facility] [address] [place] [address] * HEPATITIS B SURFACE ANTIGEN (03/06/2019 12:50 EST) Hep B Surface Ag Negative Negative 03/09/2019 10:00 EST [facility] Blood VENOUS BLOOD / Unknown 03/06/2019 12:50 EST 03/06/2019 16:07 EST us Ava Leonard MD CHEMISTRY & BLOOD GAS ORD ERABLES Final Result Performing Organization Address [facility] Co de Phone Number [facility] [address] [place] [address] * HEPATITIS C AB W REFLEX TO HCV RNA BY PCR (03/06/2019 12:50 EST) Hep C Antibody Negative Negative 03/09/2019 10:49 EST [facility] Blood VENOUS BLOOD / Unknown 03/06/2019 12:50 EST 03/06/2019 16:07 EST us Ava Leonard MD CHEMISTRY & BLOOD GAS ORD ERABLES Final Result Performing Organization Address City/[facility]/ZIP Co de Phone Number [facility] [address] [place] [address] * HEPATITIS A TOTAL ANTIBODY W REFLEX (03/06/2019 12:50 EST) Hepatitis A Antibody, Total Negative Negative 03/09/2019 10:53 EST [facility] Blood VENOUS BLOOD / Unknown 03/06/2019 12:50 EST 03/06/2019 16:07 EST Narrative [facility] - 03/09/2019 10:53 EST The result of this assay can be falsely elevated (Positive) due to the consumption of Biotin. us Ava Leonard MD CHEMISTRY & BLOOD GAS ORD ERABLES Final Result Performing Organization Address [facility] Co de Phone Number [facility] [address] [place] [address] documented in this encounter Visit Diagnoses Diagnosis Abnormal levels of other serum enzymes documented in this encounter Care Teams Veterinary Epidemiologist Relationship Specialty Start Date End Date Ava Leonard MD [address] [place] [address] PCP - General 04/19/14 documented as of this encounter
--- OUTSIDE RECORDS SUMMARY | 2024-03-23 13:31 | XMS_ITS | Encounter Summary ---
Author Organization [facility] Address [address] [place] [address] Care Team Providers Care Hospital Social Worker Name Role Phone Ava Leonard MD Primary Care Provider [phone] Reason for Visit * Reason Comments New Patient Visit Encounter Details Date Type Department Care Team (Latest Contact Info) Description 06/13/2015 13:00 EDT Office Visit [facility] Osteoporosis - [facility] [address] [place] [address] Rafael Adkins MD Rad, Edu Felder MD [...] Leonard MD Previous Scan Date: None at [facility] (Previous DXA in [place] in [facility]) ABN Necessary: No Ht 159.7 cm (62.87) Wt 64.411 kg (142 lb) BMI 25.26 kg/m2 Done AP SPINE yes FEMUR yes TOTAL BODY FOREARM LVA/VFA HEEL US PATIENT HISTORY: There is no problem list on file for this patient. No past medical history on file. Additional Comments: Previous/Prior Comparison? None at [facility] (see [facility]) Pharmacologic? No Osteoporosis Center Patient [...] DXA DUAL XRAY ABSORPTIOMETRY FOR BONE DENSITY ([facility] PERFORMED) Routine 06/16/2015 9:58 EDT Osteopenia documented in this encounter Results * ORDERS - SCANNED (06/22/2015 8:33 EDT) 06/22/2015 8:33 EDT us Scan 2 Janitor Cleaner ADMISSION ORDERABLES Final Result * DXA-DUAL XRAY ABSORPTIOMETRY FOR BONE DENSITY (06/16/2015 9:58 EDT) DEXA Bone Density [facility] DEXA Bone Density, External [facility] Anatomical Region Laterality Modality Other 06/16/2015 9:58 EDT Ava Leonard MD [facility] DEXA ORDERABLES Final Result documented in this encounter Visit Diagnoses Diagnosis Postmenopausal- Primary Asymptomatic postmenopausal status (age-related) (natural) Osteopenia Disorder of bone and cartilage, unspecified History of bisphosphonate therapy Personal history of other drug therapy documented in this encounter Care Teams Hospital Social Worker Relationship Specialty Start Date End Date Ava Leonard MD [address] [facility] [address] [place] [id number] PCP - General 04/19/14 documented as of this encounter
[2024-03-24 10:39] LABS: Syphilis Serology (RPR) Negative (Negative)
[2024-03-24 13:55] LABS: ANA Interpretation Positive (Negative); ANA Titer Pattern 1:80 Homogeneous
== END 2024-03-23 13:22 | disposition home or self-care (01) ==
LOC: LBO 13:22
PROVIDERS: PCP Physician Assistant; Visit Provider Optometrist
DX: H46.01 Optic papillitis, right eye (principal)
CPT/HCPCS: 36415; 82947; 85652; 85025; 86038; 86140; 86592

== ENCOUNTER 2024-04-01 03:24 | Outpatient (CLI) | payer MEDICARE, SELFPAY ==
--- NOTE | 2024-04-01 12:30 | DI.US_ITS ---
Exam(s) US ABDOMEN LIMITED EXAM: US ABDOMEN LIMITED CLINICAL HISTORY: ABD PAIN,? GB PATHOLOGY,POSSIBLE CHOLECYSTITIS TECHNIQUE: Ultrasound abdomen performed using standard protocol. COMPARISON: US US ABDOMEN LIMITED from 10/08/2022 FINDINGS: PANCREAS: Normal where visualized. LIVER: There is increased echogenicity of the liver consistent with hepatic steatosis. Hepatopetal f low in the Portal Vein. The liver measures in 14.5 cm length. No evidence of a hepatic mass. GALLBLADDER:There is a single mobile stone in the gallbladder measuring 6 mm. No evidence of wall th ickening. No pericholecystic fluid identified. There are several in mobile nodules along the wall of the gallbladder most consistent with polyps. BILIARY SYSTEM: Common bile duct measures < 7 mm. No intrahepatic biliary ductal dilation. DA SILVA'S SIGN: Negative. RIGHT KIDNEY: Kidney is normal in size. No evidence of renal calculi. No evidence of hydronephrosis. No renal mass or cyst identified. ASCITES: None seen. IMPRESSION: 1. Cholelithiasis without sonographic evidence of acute cholecystitis. 2. Multiple gallbladder polyps. 3. Hepatic steatosis. DATA REPOSITORY:
== END 2024-04-01 03:44 ==
PROVIDERS: PCP Physician Assistant; Visit Provider Physician Assistant
DX: K80.80 Other cholelithiasis without obstruction (principal)
CPT/HCPCS: 76705

== ENCOUNTER 2024-10-02 09:46 | Outpatient (CLI) | payer MEDICARE, SELFPAY ==
--- NOTE | 2024-10-02 09:45 | RT.EKG_ITS ---
APPROVED REPORT Exam: Resting ECG Reason for Exam: Hypertension Patient Location: O HR:85 bpm ECG Measurements Heart Rate 85 AXIS AK 244 P 30 QRSd 88 QRS -14 QT 376 T 24 QTc 447 Conclusion Sinus rhythm...normal P axis, V-rate 50- 99 Prolonged AK interval...AK >220, V-rate 50- 90 Low voltage, precordial leads...precordial leads <1.0mV
== END 2024-10-02 09:47 | disposition home or self-care (01) ==
LOC: DI.CM 09:47
PROVIDERS: PCP Physician Assistant; Visit Provider Physician Assistant
DX: I10 Essential (primary) hypertension (principal)
CPT/HCPCS: 93010

== ENCOUNTER 2024-10-05 15:47 | Outpatient (REF) | payer MEDICARE, SELFPAY ==
[2024-10-05 16:56] LABS: HCT 44.2 % (36.0-46.0); HGB 14.3 g/dL (11.2-15.7); MCH 26.9 pg (27.0-33.0); MCHC 32.4 % (32.0-36.0); MCV 83 fL (80-95); MPV 12.4 fL (8.0-11.0); Platelet Count 230 10^3/uL (130-400); RBC 5.31 10^6/uL (3.93-5.22); RDW 12.3 % (11.7-14.6); RDW-SD 37.2 fL; WBC 7.13 10^3/uL (4.4-10.8)
[2024-10-05 17:21] LABS: Anion Gap 10.4 mmol/L (3-11); BUN 19 mg/dL (7-18); CO2 29.6 mmol/L (21.0-32.0); Calcium 9.9 mg/dL (8.5-10.1); Chloride 101 mmol/L (98-107); Estimated GFR 78.24 (mL/min/1.73m2); Glucose 94 mg/dL (74-106); Potassium 3.8 mmol/L (3.5-5.1); Sodium 141 mmol/L (136-145); TSH 2.74 uIU/mL (0.36-3.74)
== END 2024-10-05 15:48 | disposition home or self-care (01) ==
LOC: NCHCN 15:47
PROVIDERS: PCP Physician Assistant; Visit Provider Physician Assistant
DX: I10 Essential (primary) hypertension (principal)
CPT/HCPCS: 80048; 85027; 84439; 84443

== ENCOUNTER 2024-10-08 00:24 | Outpatient (CLI) | payer MEDICARE, SELFPAY ==
--- NOTE | 2024-10-08 | DI.MAMMO_ITS ---
Exam(s) MAMMO SCREENING EXAM: MAMMO SCREENING CLINICAL HISTORY: SCREENING,Z12.31 TECHNIQUE: Bilateral full field digital CC and MLO mammographic images were obtained with 3D tomosynthesis and utilizing computer aided detection (CAD). COMPARISON: Comparison is made with prior examinations. FINDINGS: Masses/Architectural Distortion: No suspicious masses or areas of architectural distortion are present. Microcalcifications: No suspicious pleomorphic-type are seen. Skin Thickening/Nipple Retraction: None. IMPRESSION: 1. No significant interval change with no specific features of malignancy noted. 2. Unless there is more urgent need, screening mammography is recommended, as per [place] [employer] guidelines. BI-RADS Category 1 - Negative Breast Density - Category C - The breast are heterogeneously dense, which may obscure small masses. Breast density Category C or D implies that the patient has dense breast tissue. Dense breast tissue can make it harder to find cancer on a mammogram. Dense breast tissue is also associated with an increased risk of breast cancer. This information about the result of the mammogram report was provided to the patient to raise their awareness. Use this report when you speak with the patient about their risks for breast cancer, which includes their family history. At that time, you may recommend additional screening tests (Ultrasound or MRI) as these tests may add significant information. A negative radiographic report should not delay biopsy if a dominant or clinically suspicious mass is present. Up to ten percent of cancers are not identified on mammography. A negative report may reinforce clinical impression. Adenosis and dense breasts may obscure an underlying neoplasm. False positive reports average 6 to 10%. Patient will receive a letter notifying them of these results.
== END 2024-10-08 00:44 ==
LOC: DI 00:25
PROVIDERS: PCP Physician Assistant; Visit Provider Physician Assistant
DX: Z12.31 Encounter for screening mammogram for malignant neoplasm of breast (principal); R92.333 Mammographic heterogeneous density, bilateral breasts
CPT/HCPCS: 77063; 77067